=== PATIENT | female | born 1935 | race Caucasian/White ===

== ENCOUNTER 2022-12-04 14:59 | Outpatient (OUT) | payer MEDICARE, SELFPAY ==
[2022-12-04 15:45] LABS: Bilirubin Urine NEGATIVE (NEGATIVE); Blood Urine LARGE (NEGATIVE); Clarity Urine CLEAR (CLEAR); Color Urine LT. YELLOW (YELLOW); Glucose Urine UA NEGATIVE (NEGATIVE); Ketones Urine NEGATIVE (NEGATIVE); Leukocyte Esterase Urine TRACE (NEGATIVE); Nitrite Urine NEGATIVE (NEGATIVE); Protein Urine NEGATIVE (NEG/TRACE); Urobilinogen Urine 0.2 EU/dL (0.2-1.0)
[2022-12-04 15:53] LABS: RBC Urine 20-50 #/HPF (0-2)
[2022-12-04 15:54] LABS: Bacteria Urine TRACE #/HPF (NONE SEEN); Cast Seen? NONE SEEN #/LPF (NONE SEEN); Crystals Seen? None Seen #/HPF (None Seen); Mucus Urine NONE SEEN (NONE SEEN); Squamous Epithelial Cell Urine RARE #/LPF (NONE/RARE)
== END 2022-12-04 15:00 ==
LOC: LAB 15:04
PROVIDERS: PCP Family Medicine; Visit Provider Family Medicine
DX: R31.0 Gross hematuria (principal)
CPT/HCPCS: 81001; 87086

== ENCOUNTER 2022-12-29 10:38 | Emergency (ER) | payer MEDICARE, SELFPAY ==
[2022-12-29 10:41] VITALS: BP 159/95; PULSE 104; RESP 16; TEMP 36.8; O2SAT 96; BMI 31.0
--- NOTE | 2022-12-29 10:57 | XR_ITS ---
The [address] [address] Patient Name: NIGHAT NOGUEIRA MRN: [id number] date: 1935 Sex: F Assigned Patient Location: ED.MAIN Current Patient Location: ER Accession/Order Number: [id number] Exam Date: 12/29/2022 11:05 Report Date: 12/29/2022 11:35 At the request of: EPIFANIO RAGSDALE Procedure: XR foot LT min 3V EXAM: XR foot LT min 3V HISTORY: pain COMPARISON: None. TECHNIQUE: 3 views of the left foot FINDINGS: No acute fracture or dislocation. No aggressive bone lesion. There is a small heel spur. There is mild hallux valgus. There is soft tissue is unremarkable. IMPRESSION: No acute process. Electronically authenticated by: ERYN TIDWELL Date: 12/29/2022 11:35
--- NOTE | 2022-12-29 10:58 | ED_ITS ---
HPI - Extremity Problem General Chief complaint: Extremity Problem, Nontraumatic Stated complaint: LOWER EXTREMITY PAIN/LEFT FOOT Time Seen by Provider: 12/29/22 10:47 Source: patient Mode of arrival: walk-in History of Present Illness HPI Narrative: 87-year-old female presents for concern about a blood clot in her foot. she has difficulty explaining why she is here. She doesn't seem to be having pain but she had a blood clot once a long time ago. She thinks she needs new orthotics for her feet. She wanted to make sure she doesn't have a blood clot. There's been no injury. No swelling or pain in the calf. No ankle pain. Related Data Allergies Allergy/AdvReac Type Severity Reaction Status Date / Time cetirizine Allergy Unknown Verified 12/29/22 10:49 cyproheptadine Allergy Unknown Verified 12/29/22 10:49 levofloxacin Allergy Unknown Verified 12/29/22 10:49 Review of Systems ROS Narrative A ten point review of systems is negative except as noted above. Exam Narrative Exam Narrative: Nurses note and vital signs reviewed and patient is not hypoxic. General: The patient appears well and in no apparent distress. Patient is resting comfortably on cart. Skin: Warm, dry, no pallor noted. There is no rash noted. Head: Normocephalic, atraumatic Eye: Normal conjunctiva, no drainage Ears, Nose, Mouth, and Throat: oral mucosa is moist. Nares patent. Cardiovascular: Regular Rate and Rhythm Respiratory: Patient is in no distress, no accessory muscle use, lungs are clear to auscultation, no wheezing, rales or rhonchi Back: non-tender GI: nontender Musculoskeletal: the left foot is not swollen or erythematous. There is no bruise mass or swelling. No tenderness on palpation anywhere on the foot. Calf and ankle are nontender and nonswollen. Neurological: A&O, normal speech Psychiatric: Cooperative Constitutional Vital Signs, click to edit/add: Last Vital Signs Temp 98.3 F 12/29/22 10:41 Pulse 104 H 12/29/22 10:41 Resp 16 12/29/22 10:41 BP 159/95 H 12/29/22 10:41 Pulse Ox 96 12/29/22 10:41 Course Vital Signs Vital signs: Vital Signs Temperature 98.3 F 12/29/22 10:41 Pulse Rate 104 H 12/29/22 10:41 Respiratory Rate 16 12/29/22 10:41 Blood Pressure 159/95 H 12/29/22 10:41 Pulse Oximetry 96 12/29/22 10:41 Temperature 98.3 F 12/29/22 10:41 Pulse Rate 104 H 12/29/22 10:41 Respiratory Rate 16 12/29/22 10:41 Blood Pressure 159/95 H 12/29/22 10:41 Pulse Oximetry 96 12/29/22 10:41 MDM - Extremity (Nontraumatic) MDM Narrative Medical decision making narrative: foot x-ray is negative. We will bring her back tomorrow for ultrasound. I've low clinical suspicion of an deep vein thrombosis. She'll follow-up with her director education. Treatment diagnosis and follow-up were discussed with the patient. Differential Diagnosis Differential diagnosis: Likely other (foot sprain, foot strain, fracture, deep vein thrombosis) Discharge Plan Discharge Chief Complaint: Extremity Problem, Nontraumatic Clinical Impression: Foot pain Patient Disposition: Home, Self-Care Time of Disposition Decision: 12:00 Condition: Good Mode of Transportation: Private Vehicle Instructions: Foot Sprain (ED) Additional Instructions: Doppler ultrasound at 11:00 AM Follow-up with your director education Stand Alone Forms: Portal Instructions Referrals: Jamal Da Silva MD [Primary Care Provider] - 1 week
== END 2022-12-29 12:04 | disposition home or self-care (01) ==
PROVIDERS: Emergency Provider Emergency Medicine; PCP Family Medicine
DX: M79.672 Pain in left foot (principal)
CPT/HCPCS: 73630; 99283

== ENCOUNTER 2022-12-30 10:31 | Outpatient (OUT) | payer MEDICARE, SELFPAY ==
--- NOTE | 2022-12-30 10:40 | US_ITS ---
The [address] [address] Patient Name: NIGHAT NOGUEIRA MRN: [id number] date: 1935 Sex: F Assigned Patient Location: [facility] Current Patient Location: [facility] Accession/Order Number: [id number] Exam Date: 12/30/2022 10:41 Report Date: 12/30/2022 12:24 At the request of: EPIFANIO RAGSDALE Procedure: US venous doppler LE LT EXAMINATION: US venous doppler LE LT HISTORY: Pain , left foot swelling COMPARISON: No relevant comparison available. FINDINGS: REGION: Left lower extremity THROMBI: Nonocclusive short segment of thrombus within the peroneal vein which does not extend into the popliteal vein. COMPRESSIBILITY: Noncompressible segment of the peroneal vein. FLOW: Normal waveform and antegrade flow between 5 and 20 cm/s. OTHER: None. US/US venous doppler LE LT IMPRESSION: 1. Short segment of nonocclusive deep vein thrombus within the peroneal vein. Findings were called to the ordering provider by the cable maker at time of imaging. Electronically authenticated by: VALERIE REED Date: 12/30/2022 12:24
== END 2022-12-30 10:32 | disposition home or self-care (01) ==
PROVIDERS: PCP Family Medicine; Visit Provider Emergency Medicine
DX: M79.605 Pain in left leg (principal); I82.452 Acute embolism and thrombosis of left peroneal vein
CPT/HCPCS: 93971

== ENCOUNTER 2023-01-14 13:09 | Outpatient (OUT) | payer MEDICARE, SELFPAY ==
--- NOTE | 2023-01-14 | US_ITS ---
The [address] [address] Patient Name: NIGHAT NOGUEIRA MRN: [id number] date: 1935 Sex: F Assigned Patient Location: US Current Patient Location: US Accession/Order Number: [id number] Exam Date: 01/14/2023 14:00 Report Date: 01/14/2023 15:27 At the request of: ELIUD SHAHID Procedure: US venous doppler LE RT EXAMINATION: US venous doppler LE RT HISTORY: DVT (deep venous thrombosis) COMPARISON: No relevant comparison available. FINDINGS: REGION: Right lower extremity THROMBI: None. COMPRESSIBILITY: Normal compressibility. FLOW: Normal waveform and antegrade flow between 5 and 20 cm/s. OTHER: 3.9 x 3.4 x 1.1 cm fluid collection within the popliteal fossa, most consistent with a Sun's cyst. US/US venous doppler LE RT IMPRESSION: 1. No deep vein thrombus within the right lower extremity. 2. Sun's cyst. Electronically authenticated by: VALERIE REED Date: 01/14/2023 15:27
== END 2023-01-14 13:10 | disposition home or self-care (01) ==
LOC: US 13:10
PROVIDERS: PCP Family Medicine; Visit Provider Family Medicine
DX: R60.0 Localized edema (principal); M71.21 Synovial cyst of popliteal space [Baker], right knee
CPT/HCPCS: 93971

== ENCOUNTER 2023-01-18 14:15 | Emergency (ER) | payer MEDICARE, SELFPAY ==
[2023-01-18 14:26] VITALS: BP 150/83; PULSE 80; RESP 16; TEMP 36.8; O2SAT 97; BMI 23.9
--- NOTE | 2023-01-18 14:45 | ED.FALL1 ---
HPI - Fall General Chief Complaint: Fall Stated Complaint: FELL IN DRIVEWAY/ON A BLOOD THINNER Time Seen by Provider: 01/18/23 14:45 Source: patient Mode of arrival: Wheelchair History of Present Illness HPI Narrative: Patient presents to emergency department complaining of a fall. Patient states she was in the front porch and slipped and fell onto her right knee and also hurt her left elbow and shoulder. She did not hit her head as she had somebody in front of her and somebody behind her who were able to help her break the fall. She states the left elbow was bleeding a lot because she takes liquids so they came in to be evaluated. She also complains of pain to the right knee and bruising. The patient does have frequent falls and is not using a walker. She denies any headache. She denies any neck pain. She denies any paresthesias, weakness. She denies any chest pain, shortness of breath. She denies any abdominal pain, flank pain, hematuria, dysuria. Related Data Home Medications Medication Instructions Recorded Confirmed apixaban 2.5 mg tablet (Eliquis) 2.5 mg PO Q12H 01/18/23 01/18/23 Allergies Allergy/AdvReac Type Severity Reaction Status Date / Time cetirizine Allergy Unknown Verified 01/18/23 14:31 cyproheptadine Allergy Unknown Verified 01/18/23 14:31 levofloxacin Allergy Unknown Verified 01/18/23 14:31 Review of Systems ROS Status of ROS 10 or more systems reviewed and unremarkable except as noted in history and below Exam Narrative Exam Narrative: Nurses notes and vital signs reviewed and patient is not hypoxic. General: Nontoxic, Elderly, frail, chronically ill and in no apparent distress. Skin: Warm, dry, no pallor noted. No Rash Head: Normocephalic, atraumatic. Neck: Supple, non-tender.full Range of motion Eye: Pupils are equal, round and EOMI. No scleral icterus. Ears, Nose, Mouth, and Throat: TM clear, no hemotympanum,no posterior oropharynx erythema or nasal mucosal hypertrophy, uvula is mid-line Oral mucosa is moist Cardiovascular: Regular Rate and Rhythm without murmur, gallop or rub. Respiratory: No accessory muscle use or respiratory distress. Lungs are clear to auscultation, no wheezing, rales or rhonchi Chest Wall: no tenderness Back: No midline thoracic or lumbar vertebral tenderness. No CVA tenderness Musculoskeletal: Tenderness to palpation to the left lateral shoulder. There is no ecchymosis. There is an abrasion without any active bleeding to the left olecranon process. There is bony tenderness to palpation. Range of motion is full. Radial pulse +2, capillary refill is brisk. Right knee with small hematoma and ecchymosis noted. There is a small abrasion there is no active bleeding. Range of motion is limited by pain. no calf or popliteal tenderness, no lower extremity edema/swelling GI: Abdomen is soft, non-distended. Normal bowel sounds. No masses appreciated. No tenderness to palpation. No rebound, guarding, or rigidity noted. Psychiatric: Cooperative and interactive. Normal mood and affect. Constitutional Vital Signs, click to edit/add: Last Vital Signs Temp 98.3 F 01/18/23 14:26 Pulse 91 H 01/18/23 16:55 Resp 16 01/18/23 14:26 BP 164/89 H 01/18/23 16:55 Pulse Ox 96 01/18/23 16:55 O2 Del Method Room Air 01/18/23 14:26 Course Vital Signs Vital signs: Vital Signs Temperature 98.3 F 01/18/23 14:26 Pulse Rate 80 01/18/23 14:26 Respiratory Rate 16 01/18/23 14:26 Blood Pressure 150/83 H 01/18/23 14:26 Pulse Oximetry 97 01/18/23 14:26 Oxygen Delivery Method Room Air 01/18/23 14:26 Temperature 98.3 F 01/18/23 14:26 Pulse Rate 91 H 01/18/23 16:55 Respiratory Rate 16 01/18/23 14:26 Blood Pressure 164/89 H 01/18/23 16:55 Pulse Oximetry 96 01/18/23 16:55 Oxygen Delivery Method Room Air 01/18/23 14:26 MDM - Fall MDM Narrative Medical decision making narrative: X-rays of the left arm and elbow are unremarkable. Right knee does not show anything acute. All results were discussed with patient. Wound care instructions provided. She is advised to take Tylenol for pain. Patient has 2 caregivers with her. An Waylon wrap was applied to the right knee for compression. Advised to keep that on for 48 hours. At this time the patient is without objective evidence of an acute process requiring hospitalization or inpatient management. The patient has remained hemodynamically stable. No additional indication for emergent studies at this time. I answered all questions. Discussed discharge instructions including standard anticipatory guidance and what should prompt a return to the emergency department, including if they get worse are not getting better or develops any new or concerning symptoms. I've given them specific time frame in which to follow-up, and who to follow-up with. The patient demonstrates understanding. Patient is nontoxic and stable for discharge with outpatient follow-up. This note was created with the assistance of a speech recognition program. Although the intention is to generate documents that actually reflects the content of the visit, no guarantees can be provided that every mistake has been identified and corrected by editing. Discharge Plan Discharge Chief Complaint: Fall Clinical Impression: Contusion of left shoulder, Contusion of right knee, Abrasion of elbow Patient Disposition: Home, Self-Care Time of Disposition Decision: 16:38 Condition: Good Mode of Transportation: Private Vehicle Prescriptions / Home Meds: No Action Eliquis 2.5 mg tablet 2.5 mg PO Q12H Instructions: Contusion in Adults (ED) Stand Alone Forms: Portal Instructions Referrals: Jamal Da Silva MD [Primary Care Provider] - 1 week Discharge Date/Time: 01/18/23 17:25
--- NOTE | 2023-01-18 15:01 | XR_ITS ---
The [address] [address] Patient Name: NIGHAT NOGUEIRA MRN: [id number] date: 1935 Sex: F Assigned Patient Location: ER Current Patient Location: ER Accession/Order Number: [id number] Exam Date: 01/18/2023 15:35 Report Date: 01/18/2023 16:16 At the request of: NIMA MANDUJANO Procedure: XR knee RT 4V EXAM: XR knee RT 4V HISTORY: pain, fall COMPARISON: None. TECHNIQUE: 4 views FINDINGS: No fracture, dislocation, subluxation or osseous lesion. Osteophytes are present off all articular surfaces. Narrowing of the patellofemoral compartment with subchondral sclerosis of the patella and trochlea. The femorotibial compartments are maintained. No discrete joint effusion. XR/XR knee RT 4V IMPRESSION: No visualized discrete acute abnormality Electronically authenticated by: TRINI SOTO Date: 01/18/2023 16:16
--- NOTE | 2023-01-18 15:01 | XR_ITS ---
The [address] [address] Patient Name: NIGHAT NOGUEIRA MRN: [id number] date: 1935 Sex: F Assigned Patient Location: ER Current Patient Location: ER Accession/Order Number: [id number] Exam Date: 01/18/2023 15:35 Report Date: 01/18/2023 16:14 At the request of: NIMA MANDUJANO Procedure: XR elbow LT 2V EXAM: XR elbow LT 2V, XR humerus LT HISTORY: pain, fall COMPARISON: None. TECHNIQUE: 2 views of the elbow and 2 views of the humerus. FINDINGS: No gross visualized fracture, dislocation, subluxation or osseous lesion. A lateral elbow imaging is limited. No gross joint effusion or soft tissue edema. XR/XR elbow LT 2V IMPRESSION: No gross visualized acute abnormality Electronically authenticated by: TRINI SOTO Date: 01/18/2023 16:14
--- NOTE | 2023-01-18 15:01 | XR_ITS ---
The [address] [address] Patient Name: NIGHAT NOGUEIRA MRN: [id number] date: 1935 Sex: F Assigned Patient Location: ER Current Patient Location: ER Accession/Order Number: [id number] Exam Date: 01/18/2023 15:35 Report Date: 01/18/2023 16:14 At the request of: NIMA MANDUJANO Procedure: XR humerus LT EXAM: XR elbow LT 2V, XR humerus LT HISTORY: pain, fall COMPARISON: None. TECHNIQUE: 2 views of the elbow and 2 views of the humerus. FINDINGS: No gross visualized fracture, dislocation, subluxation or osseous lesion. A lateral elbow imaging is limited. No gross joint effusion or soft tissue edema. XR/XR humerus LT IMPRESSION: No gross visualized acute abnormality Electronically authenticated by: TRINI SOTO Date: 01/18/2023 16:14
--- NOTE | 2023-01-18 15:01 | XR_ITS ---
The [address] [address] Patient Name: NIGHAT NOGUEIRA MRN: [id number] date: 1935 Sex: F Assigned Patient Location: ER Current Patient Location: ER Accession/Order Number: [id number] Exam Date: 01/18/2023 15:35 Report Date: 01/18/2023 16:18 At the request of: NIMA MANDUJANO Procedure: XR ribs LT min 3V w CXR1V EXAMINATION: XR ribs LT min 3V w CXR1V HISTORY: Pain following fall COMPARISON: None. TECHNIQUE: 5 views of the ribs along with PA chest. New FINDINGS: Chronic changes of the lung parenchyma with no acute consolidation or infiltrate. No pneumothorax or pleural effusion. The cardiac, mediastinal and hilar contours are normal. The visualized osseous structures exhibit no gross abnormality. Nondilated changes of the spine most pronounced of the upper lumbar with a degenerative levocurvature. XR/XR ribs LT min 3V w CXR1V IMPRESSION: No visualized acute abnormality Electronically authenticated by: TRINI SOTO Date: 01/18/2023 16:18
[2023-01-18 16:55] VITALS: BP 164/89; PULSE 91; O2SAT 96
== END 2023-01-18 17:25 | disposition home or self-care (01) ==
PROVIDERS: Emergency Provider Emergency Medicine; PCP Family Medicine
DX: S80.01XA Contusion of right knee, initial encounter (principal); S40.012A Contusion of left shoulder, initial encounter; S50.312A Abrasion of left elbow, initial encounter; W01.10XA Fall on same level from slipping, tripping and stumbling with subsequent striking against unspecified object, initial encounter; Z79.01 Long term (current) use of anticoagulants
CPT/HCPCS: 71101; 73060; 73070; 73564; 99284

== ENCOUNTER 2023-02-10 12:39 | Outpatient (OUT) | payer MEDICARE, SELFPAY ==
[2023-02-10 12:53] VITALS: BP 128/69; PULSE 92; RESP 18; TEMP 36.7; O2SAT 94
--- NOTE | 2023-02-10 12:53 | PC.NURSE ---
1253: Pt. to [facility] amb. using walker to assist. Seated in recliner. VSS. Awaiting lab results before injection given. Pt. given warm blanket and water. Denies needs.
[2023-02-10 12:57] LABS: Calcium 9.6 mg/dL (8.5-10.1); Estimated GFR (African America >60 (>=60); Estimated GFR (Non-African Ame >60 (>=60)
[2023-02-10] MEDS: DENOSUMAB 60 MG/ML SYRINGE SUBQ (13:44)
== END 2023-02-10 12:40 | disposition home or self-care (01) ==
LOC: INF 12:39
PROVIDERS: PCP Family Medicine; Visit Provider Family Medicine
DX: M81.0 Age-related osteoporosis without current pathological fracture (principal)
CPT/HCPCS: 36415; 82310; 82565; 96372; J0897

== ENCOUNTER 2023-04-28 14:30 | Outpatient (RCR) | payer MEDICARE, SELFPAY | END 2023-06-06 16:07 | disposition home or self-care (01) | LOC: PT 14:30 | PROVIDERS: PCP Family Medicine; Visit Provider Family Medicine | DX: M79.671 Pain in right foot (principal) | CPT/HCPCS: 97110; 97112; 97163; 97530 ==

== ENCOUNTER 2023-07-24 13:46 | Outpatient (OUT) | payer MEDICARE, SELFPAY ==
--- NOTE | 2023-07-24 13:50 | US_ITS ---
The [address] [address] Patient Name: NIGHAT NOGUEIRA MRN: [id number] date: 1935 Sex: F Assigned Patient Location: US Current Patient Location: US Accession/Order Number: [id number] Exam Date: 07/24/2023 13:50 Report Date: 07/24/2023 15:41 At the request of: ELIUD SHAHID Procedure: US venous doppler LE BI EXAMINATION: US venous doppler LE BI HISTORY: bilateral leg edema R60.0 COMPARISON: No relevant comparison available. FINDINGS: REGION: Bilateral lower extremities. THROMBI: Short segment of nonocclusive chronic thrombus within proximal gastrocnemius vein. Small segment of superficial thrombus within the mid small saphenous vein. Sun cyst within right popliteal fossa, 4.4 x 2.5 x 1.3 cm, and within left popliteal fossa 4.2 x 1.7 x 1.3 cm. COMPRESSIBILITY: Noncompressible segments. FLOW: Normal waveform and antegrade flow between 5 and 20 cm/s. OTHER: None. US/US venous doppler LE BI IMPRESSION: 1. 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 No new findings. 2. Incidental small segment of superficial thrombus within right small saphenous vein. 3. No deep vein thrombus within left lower extremity. 4. Bilateral Sun cysts. Electronically authenticated by: VALERIE REED Date: 07/24/2023 15:41
== END 2023-07-24 13:47 | disposition home or self-care (01) ==
LOC: US 13:46
PROVIDERS: PCP Family Medicine; Visit Provider Family Medicine
DX: R60.0 Localized edema (principal); I82.561 Chronic embolism and thrombosis of right calf muscular vein; I82.811 Embolism and thrombosis of superficial veins of right lower extremity; M71.22 Synovial cyst of popliteal space [Baker], left knee; M71.21 Synovial cyst of popliteal space [Baker], right knee
CPT/HCPCS: 93970

== ENCOUNTER 2023-08-22 07:27 | Outpatient (RCR) | payer MEDICARE, SELFPAY ==
[2023-08-22 12:04] LABS: Calcium 9.1 mg/dL (8.5-10.1); Estimated GFR (African America >60 (>=60); Estimated GFR (Non-African Ame >60 (>=60)
--- NOTE | 2023-08-22 12:49 | MM_ITS ---
Patient Name: NIGHAT NOGUEIRA MR#: [id number] : 1935 Exam Date: 08/22/2023 Ordering Doctor: DR Jamal Da Silva . RADIOLOGY REPORT PROCEDURE: MM TOMOSYNTHESIS SCREENING BI COMPARISON: MG MAMM SCREEN 3D VERENICE CAD, 06/18/2021. MG MAMM SCREEN 3D VERENICE CAD, 07/01/2022. INDICATIONS: Screening Calculator Name NCI Breast Cancer Risk Assessment Tool 5 Year Breast Cancer Risk Not Applicable. Lifetime Breast Cancer Risk Not Applicable. Personal Breast Cancer No Personal Ovarian Cancer No Treatments None Family Cancers Aunt-paternal with breast cancer at age 60. LOCATION: [facility] BREAST COMPOSITION: Scattered areas fibroglandular density. FINDINGS: DIAGNOSTIC CATEGORY 2--BENIGN FINDING. NO CHANGE FROM COMPARISON. Scattered benign-appearing calcifications are present. Scattered benign-appearing lymph nodes are present. RIGHT BREAST: No significant suspicious finding. Asymmetrically small, stable. Unchanged micro clip marker upper outer quadrant, mid breast LEFT BREAST: No significant suspicious finding. RECOMMENDATIONS: ROUTINE MAMMOGRAM AND CLINICAL EVALUATION IN 12 MONTHS. PLEASE NOTE: A NORMAL MAMMOGRAM DOES NOT EXCLUDE THE POSSIBILITY OF BREAST CANCER. A CLINICALLY SUSPICIOUS PALPABLE LUMP SHOULD BE BIOPSIED. Dictated by: Chris Hauser MD on 08/22/2023 at 14:13 Approved by: Chris Hauser MD on 08/22/2023 at 14:16
[2023-08-22] MEDS: DENOSUMAB 60 MG/ML SYRINGE SQ (13:35)
[2023-08-22 14:12] VITALS: BP 133/70; PULSE 81; RESP 16; TEMP 36.6; O2SAT 96
--- NOTE | 2023-08-22 14:13 | PC.NURSE ---
1326: Pt. to [facility] amb. Seated in recliner. VSS. Denies c/o or needs. 1335: Medicated with Prolia as directed to right upper arm. Trace bleeding to site, bandaid applied. Pt. tolerated without c/o. 1355: Pt. d/c'd amb. to home.
== END 2023-09-21 08:47 | disposition home or self-care (01) ==
LOC: LAB 07:27
PROVIDERS: PCP Family Medicine; Visit Provider Family Medicine
DX: Z12.31 Encounter for screening mammogram for malignant neoplasm of breast (principal); Z80.3 Family history of malignant neoplasm of breast; M81.0 Age-related osteoporosis without current pathological fracture
CPT/HCPCS: 36415; 77063; 77067; 82310; 82565; 96372; J0897

== ENCOUNTER 2023-11-10 09:17 | Outpatient (OUT) | payer MEDICARE, SELFPAY ==
[2023-11-10 09:53] LABS: Basophils Percent Auto 0.5 % (0.2-2.0); Eosinophils Absolute Auto 0.1 10^3/uL (0.0-0.7); Eosinophils Percent Auto 0.7 % (0.9-7.0); Hematocrit 37.8 % (36.0-48.0); Hemoglobin 12.5 g/dL (12.0-16.0); Immature Granulocytes Abs Auto 0.02 10^3/uL (0.00-0.03); Immature Granulocytes Pct Auto 0.3 % (0.0-0.5); Lymphocytes Absolute Auto 1.1 10^3/uL (1.2-3.8); Lymphocytes Percent Auto 15.4 % (20.5-60.0); Mean Corpuscular HGB Conc 33.1 g/dL (29.9-35.2); Mean Corpuscular Hemoglobin 32.7 pg (26.7-34.0); Mean Platelet Volume 10.8 fL (9.5-13.5); Monocytes Absolute Auto 0.7 10^3/uL (0.3-0.8); Monocytes Percent Auto 9.8 % (1.7-12.0); Neutrophils Absolute Auto 5.4 10^3/uL (1.4-6.5); Neutrophils Percent Auto 73.3 % (43.0-75.0); Platelet Count 166 10^3/uL (150-450); Red Blood Count 3.82 10^6/uL (4.20-5.40); Red Cell Distribution Width 13.3 % (11.0-15.0); White Blood Count 7.4 10^3/uL (4.0-11.0)
[2023-11-10 11:27] LABS: Alanine Aminotransferase 33 U/L (14-59); Albumin Level 3.4 g/dL (3.4-5.0); Alkaline Phosphatase 45 U/L (46-116); Anion Gap 10.2; Aspartate Amino Transferase 27 U/L (15-37); BUN Creatinine Ratio 33.9; Bilirubin Total 0.5 mg/dL (0.2-1.0); Calcium 9.3 mg/dL (8.5-10.1); Carbon Dioxide 28.9 mmol/L (21.0-32.0); Chloride 104 mmol/L (98-107); Chol HDL Ratio 1.9; Cholesterol 204 mg/dL (<=200); Estimated GFR (African America >60 (>=60); Estimated GFR (Non-African Ame >60 (>=60); Free T3 2.67 pg/mL (2.18-3.98); Globulin 3.5 g/dL; Glucose 88 mg/dL (74-106); HDL Cholesterol 110 mg/dL (40-60); Potassium 3.1 mmol/L (3.5-5.1); Sodium 140 mmol/L (136-145); Thyroid Stimulating Hormone 3.585 uIU/mL (0.358-3.740); Total Protein 6.9 g/dL (6.4-8.2); Triglycerides 39 mg/dL (<=150); VLDL CHOLESTEROL 7.8 mg/dL
[2023-11-10 11:56] LABS: Estimated Average Glucose 111 mg/dL; Glycohemoglobin A1C 5.5 % (4.5-6.2)
== END 2023-11-10 09:18 | disposition home or self-care (01) ==
LOC: LAB 09:20
PROVIDERS: PCP Family Medicine; Visit Provider Family Medicine
DX: E78.5 Hyperlipidemia, unspecified (principal); R60.0 Localized edema; F41.9 Anxiety disorder, unspecified; R42 Dizziness and giddiness
CPT/HCPCS: 36415; 80053; 80061; 82306; 83036; 84436; 84443; 84481; 85025

== ENCOUNTER 2023-11-21 08:19 | Outpatient (OUT) | payer MEDICARE, SELFPAY ==
--- OUTSIDE RECORDS SUMMARY | 2023-11-21 08:22 | XMS_ITS | CCD ---
Author Organization [facility] CliniSyar Care Team Providers Care Cabin Service Agent Name Role Phone ZEHRA, DR KLINE Consulting Unavailable HOY, DR KLINE Primary Care Unavailable ZEHRA, DR KLINE Attending Unavailable HOY, DR KLINE Admitting Unavailable HOY, DR KLINE Consulting Unavailable HOY, DR KLINE Primary Care Unavailable HOY, DR KLINE Attending Unavailable HOY, DR KLINE Admitting Unavailable Zieber, DR Bautista Consulting Unavailable ZEHRA, DR KLINE Primary Care Unavailable HOY, DR KLINE Attending Unavailable HOY, DR KLINE Admitting Unavailable PRIYANKA, SCOUT BRUNO Consulting Unavailable MICHAEL, DR KAREEM Whitt Attending Unavailabl e REINECK, DR KAREEM Whitt Admitting Unavailabl e HOJacki, DR KLINE Primary Care Unavailable HAY, DR RASMUSSEN Consulting Unavailable HAY, DR RASMUSSEN Attending Unavailable HAY, DR RASMUSSEN Admitting Unavailable BRUCEY, DR KLINE Primary Care Unavailable MARTÍNEZ BALTAZAR Consulting Unavailable HAY, DR RASMUSSEN Consulting Unavailable HAY, DR RASMUSSEN Attending Unavailable HAY, DR RASMUSSEN Admitting Unavailable ZEHRA, DR KLINE Primary Care Unavailable HOY, DR KLINE Consulting Unavailable ZEHRA, DR KLINE Primary Care Unavailable HOJacki, DR KLINE Attending Unavailable HOY, DR KLINE Admitting Unavailable WEST, DR FELIZ Consulting Unavailable WEST, DR FELIZ Consulting Unavailable HOY, DR KLINE Primary Care Unavailable WEST, DR FELIZ Attending Unavailable WEST, DR FELIZ Admitting Unavailable Zieber, DR Bautista Consulting Unavailable NISA, DR FELIZ Consulting Unavailable ZEHRA, DR KLINE Attending Unavailable HOY, DR KLINE Admitting Unavailable HOY, DR KLINE Primary Care Unavailable HOY, DR KLINE Consulting Unavailable BRUCEY, DR KLINE Primary Care Unavailable ZEHRA, DR KLINE Attending Unavailable ZEHRA, DR KLINE Admitting Unavailable ZEHRA, DR KLINE Consulting Unavailable ZEHRA, DR KLINE Primary Care Unavailable HOY, DR KLINE Attending Unavailable HOY, DR KLINE Admitting Unavailable HOY, DR KLINE Consulting Unavailable DR ELIUD DA SILVA Primary Care Unavailable JANNETTE BREWER Attending Unavailable JANNETTE BREWER Admitting Unavailable DR Michele Aguayo Consulting Unavailable Allergies Allergy Classification Reported Allergen(s) Allergy Type Date of Onset Reaction(s) Facility (1 source) Cetirizine Drug Allergy [facility] Repository (1 source) diphenhydrAMINE Drug Allergy 6 [facility] Repository (1 source) gamma-Aminobutyrate Drug Allergy [facility] Repository (1 source) Ketanserin Drug Allergy [facility] Repository (2 sources) levoFLOXacin; Translations: [LEVOFLOXACIN] Drug Allergy 3 [facility] Repository (1 source) Cyproheptadine; Translations: [CYPROHEPTADINE HCL] Drug Allergy 3 [facility] Repository Problems Active Problems Problem Classification Problem Date Documented Da te Episodic/Chronic Anxiety disorders (1 source) Anxiety disorder, unspecified; Translations: [ANXIETY DISORDER UNSPECIFIED] Onset: 12-01-2021 Chronic Congestive heart failure; nonhypertensive (1 source) Unspecified diastolic (congestive) heart failure; Translations: [UNSPECIFIED DIASTOLIC HEART FAILURE] Onset: 12-01-2021 Chronic Disorders of lipid metabolism (2 sources) Pure hypercholesterolemi a, unspecified; Translations: [Hyperlipidemia, unspecified] Onset: 12-01-2021 Chronic Hypertension with complications and secondary hypertension (1 source) Hypertensive heart disease with heart failure; Translations: [HTN HEART DISEASE W/HEART FAIL] Onset: 12-01-2021 Chronic Nutritional deficiencies (1 source) Vitamin D deficiency, unspecified; Translations: [VITAMIN D DEFICIENCY UNSPECIFIED] Onset: 12-01-2021 Chronic Osteoporosis (4 sources) Age-related osteoporosis without current pathological fracture; Translations: [AGE-REL OSTEOPOR W/O CURR PATH FX] Onset: 07-01-2022 Chronic Other connective tissue disease (4 sources) Pain in left leg; Translations: [PAIN IN LEFT LEG] Onset: 05-21-2022 Episodic Other injuries and conditions due to external causes (1 source) History of falling; Translations: [HISTORY OF FALLING] Onset: 05-25-2022 Episodic Other screening for suspected conditions (not mental disorders or infectious disease) (1 source) Encounter for screening mammogram for malignant neoplasm of breast; Translations: [ENC SCR MAMMO MALIG NEOPLASM BREAST] Onset: 07-02-2022 Episodic Residual codes; unclassified (1 source) Obstructive sleep apnea (adult) (pediatric); Translations: [OBSTRUCTIVE SLEEP APNEA] Onset: 12-01-2021 Chronic Residual codes; unclassified (1 source) Family history of malignant neoplasm of breast; Translations: [FAMILY HX MALIG NEOPLASM OF BREAST] Onset: 07-02-2022 Episodic Unclassified (3 sources) COUGH, UNSPECIFIED; Translations: [COUGH, UNSPECIFIED] Onset: 06-12-2022 Unclassified (1 source) CONTACT W/AND (SUSP) EXPOS COVID-19; Translations: [CONTACT W/AND (SUSP) EXPOS COVID-19] Onset: 06-12-2022 Unclassified (1 source) Annual Exam Onset: 06-09-2023 Past or Other Problems Problem Classification Problem Date Documented Da te Episodic/Chronic Deficiency and other anemia (1 source) Anemia, unspecified; Translations: [ANEMIA UNSPECIFIED] Onset: 2 Episodic Diabetes mellitus without complication (1 source) Other abnormal glucose; Translations: [OTHER ABNORMAL GLUCOSE] Onset: 2 Episodic E Codes: Fall (1 source) Unspecified fall, initial encounter; Translations: [UNSPECIFIED FALL INITIAL ENCOUNTER] Onset: 2 Episodic Genitourinary symptoms and ill-defined conditions (7 sources) Hematuria, unspecified; Translations: [Frequency of micturition] Onset: 2 Episodic Other aftercare (1 source) care manager (current) use of aspirin; Translations: [HALF-WAY CURRENT USE OF ASPIRIN] Onset: 2 Episodic Other aftercare (1 source) Other artificial breeding technician (current) drug therapy; Translations: [OTH ART CLASS MODEL CURRENT DRUG THERAPY] Onset: 2 Episodic Other fractures (1 source) Fracture of one rib, right side, initial encounter for closed fracture; Translations: [FX 1 RIB RT SIDE INITIAL CLOS FX] Onset: 2 Episodic Phlebitis; thrombophlebitis and thromboembolism (4 sources) Phlebitis and thrombophlebitis of superficial vessels of lower extremities, bilateral; Translations: [PHLEBITIS AND TP SUP VES LOW EXT VERENICE] Onset: 2 Episodic Residual codes; unclassified (4 sources) Localized edema; Translations: [LOCALIZED EDEMA] Onset: 2 Episodic Spondylosis; intervertebral disc disorders; other back problems (3 sources) Dorsalgia, unspecified; Translations: [DORSALGIA UNSPECIFIED] Onset: 2 Episodic Syncope (1 source) Syncope and collapse; Translations: [SYNCOPE AND COLLAPSE] Onset: 2 Episodic Unclassified (1 source) COUGH, UNSPECIFIED; Translations: [COUGH, UNSPECIFIED] Onset: 2 Urinary tract infections (2 sources) Urinary tract infection, site not specified; Translations: [UTI SITE NOT SPECIFIED] Onset: 2 Episodic Varicose veins of lower extremity (4 sources) Varicose veins of bilateral lower extremities with pain; Translations: [VARICOSE VNS VERENICE LOW EXTREM W/PAIN] Onset: 2 Episodic Results Test Name Value Interpretation Reference Range Facility CALCIUMon 07-01-2022 Calcium [Mass/Vol] 8.9 mg/dL Normal 8.5-10.1 [facility] Comment on above: Performed By: #### E RUR #### [facility] [address] [address] [address] Augusto Dukes CREATININEon 07-01-2022 Creatinine [Mass/Vol] 0.99 mg/dL Normal 0.55-1.02 [facility] Comment on above: Performed By: #### E RUR #### [facility] [address] [address] [address] Augusto Dukes EGFR-AF KAZAKH >60 Normal >=60 [facility] Comment on above: Performed By: #### E RUR #### [facility] [address] [address] [address] Augusto Dukes EGFR-NON AF KAZAKH 53 mL/min/1.73m2 Critically low >=60 [facility] Comment on above: Performed By: #### E RUR #### [facility] [address] [place] [address] Dr. Augusto Dukes MG MAMM SCREEN 3D VERENICE CADon 07-01-2022 MG MAMM SCREEN 3D VERENICE CAD Patient: NIGHAT NOGUEIRAMalissa Exam Date: 07/01/2022 : 1935 Gender:F Ordering : DR ELIUD DA SILVA . Admission #: [id number] Family : Order #: [id number] CLICK HERE TO VIEW EXAM RADIOLOGY REPORT PROCEDURE: MAMMOGRAM SCREENING 3D BILATERAL CAD COMPARISON: MG MAMM SCREEN VERENICE W CAD, 05/30/2020. MG MAMM SCREEN VERENICE W CAD, 05/18/2019. DIGITIZED_MAMMO, 12/28/2008. MG MAMM SCREEN 3D VERENICE CAD, 06/18/2021. INDICATIONS: Screening mammography Calculator Name NCI Breast Cancer Risk Assessment Tool 5 Year Breast Cancer Risk 1.70% Lifetime Breast Cancer Risk 1.70% Personal Breast Cancer No Personal Ovarian Cancer No Treatments None Family Cancers Aunt-paternal with breast cancer at age 60. LOCATION: [facility] BREAST COMPOSITION: Scattered areas fibroglandular density. FINDINGS: DIAGNOSTIC CATEGORY 2--BENIGN FINDING: RIGHT BREAST: Stable biopsy marker clip within the upper-outer quadrant. No significant suspicious finding. Scattered benign-appearing calcifications are present. No significant change has occurred. LEFT BREAST: No significant suspicious finding. Scattered benign-appearing calcifications are present. No significant change has occurred. RECOMMENDATIONS: ROUTINE MAMMOGRAM AND CLINICAL EVALUATION IN 12 MONTHS. PLEASE NOTE: A NORMAL MAMMOGRAM DOES NOT EXCLUDE THE POSSIBILITY OF BREAST CANCER. A CLINICALLY SUSPICIOUS PALPABLE LUMP SHOULD BE BIOPSIED. Dictated by: Michele Aguayo M.D. on 07/01/2022 at 15:55 Approved by: Michele Aguayo M.D. on 07/01/2022 at 15:58 Normal [facility] Covid-19 PCR (CVDTB)on 05-23 SARS-CoV-2 (COVID-19) RNA ADWOA+probe Ql (Unsp spec) Not detected Normal NOT DETECTED [facility] Comment on above: Result Comment: This test is not yet approved or cleared by the [place] FDA. When there are no FDA-approved or cleared tests available, and other criteria are met, FDA can make tests available under an emergency access mechanism called an Emergency Use Authorization (EUA). The EUA for this test is supported by the [place] of Health and Human Service's (HHS's) declaration that circumstances exist to justify the emergency use of in vitro diagnostics for the detection and/or diagnosis of the virus that causes COVID-19. This EUA will remain in effect (meaning this test can be used) for the duration of the COVID-19 declaration justifying emergency of IVDs, unless it is terminated or revoked by FDA (after which the test may no longer be used). When diagnostic testing is negative, the possibility of a false negative should be considered in the context of a patient's recent exposures and the presence of clinical signs and symptoms consistent with SARS-CoV-2. Performed By: #### I NFLUAB #### [facility] [address] [place] [address] Dr. Augusto Dukes INFLUENZA A AND B [facility] BELOW Normal [facility] Comment on above: Result Comment: Nega tive for Flu A protein angiten. Infection due to Flu A cannot be ruled out. Flu A angiten in the sample may be below the detection limit of the test. Performed By: #### I NFLUAB #### [facility] [address] [place] [address] Dr. Augusto Dukes INFLUBNEG SEE BELOW Normal [facility] Comment on above: Result Comment: Nega tive for Flu B protein antigen. Infection due to Flu B cannot be ruled out. Flu B antigen in the sample may be below the detection limit of the test. Performed By: #### I NFLUAB #### [facility] [address] [place] [address] Dr. Augusto Dkues INFLUENZA A AG Negative Normal NEGATIVE SEE COMMENT [facility] Comment on above: Performed By: #### I NFLUAB #### [facility] [address] [place] [address] Dr. Augusto Dukes INFLUENZA B AG Negative Normal NEGATIVE SEE COMMENT [facility] Comment on above: Performed By: #### I NFLUAB #### [facility] [address] [place] [address] Dr. Augusto Dukes INTERNAL CONTROLS Within Normal Limits Normal Wi thin Normal Limits [facility] Comment on above: Performed By: #### I NFLUAB #### [facility] [address] [place] [address] Dr. Augusto Dukes CULTURE URINEon 03-06-2022 CULTURE URINE Culture Observations : LIGHT GROWTH OF MIXED GENITAL BRANDON. NO POTENTIAL PATHOGENS SEEN. Normal [facility] Comment on above: Performed By: #### I NFLUAB #### [facility] [address] [address] [address] Augusto Dukes ER URINE PROFILEon 2 Bilirubin Ql (U) Negative Normal NEGATIVE [facility] Comment on above: Performed By: #### U MICRO, ERUR #### [facility] [address] [address] [address] Augusto Dukes Clarity (U) CLEAR Normal CLEAR [facility] Comment on above: Performed By: #### U MICRO, ERUR #### [facility] [address] [place] [address] Dr. Augusto Dukes Color (U) YELLOW Normal YELLOW [facility] Comment on above: Performed By: #### U MICRO, ERUR #### [facility] [address] [place] [address] Dr. Augusto Dukes ERUAHD A micrscopic examination will be performed if indicated. Normal [facility] Comment on above: Performed By: #### U MICRO, ERUR #### [facility] [address] [place] [address] Dr. Augusto Dukes Glucose Ql (U) Negative Normal NEGATIVE [facility] Comment on above: Performed By: #### U MICRO, ERUR #### [facility] [address] [address] [address] Augusto Dukes Hemoglobin Ql (U) LARGE Abnormal NEGATIVE [facility] Comment on above: Performed By: #### U MICRO, ERUR #### [facility] [address] [address] [address] Augusto Dukes Ketones Ql (U) Negative Normal NEGATIVE [facility] Comment on above: Performed By: #### U MICRO, ERUR #### [facility] [address] [place] [address] Dr. Augusto Dukes LEUKOCYTES SMALL Abnormal NEGATIVE [facility] Comment on above: Performed By: #### U MICRO, ERUR #### [facility] [address] [place] [address] Dr. Augusto Dukes Nitrite Ql (U) Negative Normal NEGATIVE [facility] Comment on above: Performed By: #### U MICRO, ERUR #### [facility] [address] [place] [address] Dr. Augusto Dukes pH (U) 8.0 [pH] Normal 5-9 [facility] Comment on above: Performed By: #### U MICRO, ERUR #### [facility] [address] [place] [address] Dr. Augusto Dukes SPEC GRAVITY 1.015 Normal 1.005-<=1.025 [facility] Comment on above: Performed By: #### U MICRO, ERUR #### [facility] [address] [place] [address] Dr. Augusto Dukes UA PROTEIN TRACE Normal NEGATIVE/ TRACE [facility] Comment on above: Performed By: #### U MICRO, ERUR #### [facility] [address] [place] [address] Dr. Augusto Dukes UR MICRO IND INDICATED Normal [facility] Comment on above: Performed By: #### U MICRO, ERUR #### [facility] [address] [place] [address] Dr. Augusto Dukes Urobilinogen Qn (U) 0.2 {Lamont'U}/dL Normal 0.2 - 1. 0 [facility] Comment on above: Performed By: #### U MICRO, ERUR #### [facility] [address] [place] [address] Dr. Augusto Dukes URINE MICROSCOPIC ONLYon AMORPHOUS CRYSTALS FEW Normal [facility] Comment on above: Performed By: #### U MICRO, ERUR #### [facility] [address] [place] [address] Dr. Augusto Dukes BACTERIA SMALL Abnormal NONE SEEN [facility] Comment on above: Performed By: #### U MICRO, ERUR #### [facility] [address] [place] [address] Dr. Augusto Dukes Bacteria identified Cx Nom (U) INDICATED Normal [facility] Comment on above: Performed By: #### U MICRO, ERUR #### [facility] [address] [place] [address] Dr. Augusto Dukes CAST NONE SEEN Normal NONE SEEN [facility] Comment on above: Performed By: #### U MICRO, ERUR #### [facility] [address] [place] [address] Dr. Augusto Dukes Crystals LM Nom (Urine sed) SEEN Abnormal NONE SEEN [facility] Comment on above: Performed By: #### U MICRO, ERUR #### [facility] [address] [place] [address] Dr. Augusto Dukes Epithelial cells LM Ql (Urine sed) RARE Normal NONE SEEN /RARE [facility] Comment on above: Performed By: #### U MICRO, ERUR #### [facility] [address] [place] [address] Dr. Augusto Dukes MUCOUS NONE SEEN Normal NONE SEEN [facility] Comment on above: Performed By: #### U MICRO, ERUR #### [facility] [address] [place] [address] Dr. Augusto Dukes RBC 20-50 Abnormal 0-2 [facility] Comment on above: Performed By: #### U MICRO, ERUR #### [facility] [address] [place] [address] Dr. Augusto Dukes WBC 10-20 Abnormal NONE SEEN [facility] Comment on above: Performed By: #### U MICRO, ERUR #### [facility] [address] [place] [address] Dr. Augusto Dukes VC CONSULT FOLLOWUPon 2021 VC CONSULT FOLLOWUP Patient: NIGHAT NOGUEIRA Exam Date: 02/07/2022 : 1935 Gender:F Ordering : DR TRINI PAULA M.D. Admission #: [id number] Family : Order #: [id number] CLICK HERE TO VIEW EXAM RADIOLOGY REPORT PROCEDURE: VEIN CENTER CONSULTATION FOLLOWUP VEIN CENTER - OFFICE VISIT FOLLOW UP COMPARISON: None. PROGRESS NOTES: Patient is here today for follow-up of previously seen deep vein thrombus within the right and left calf. The patient reports recent fall and fracture of right rib. Physical exam demonstrates persistent superficial varicosities of legs bilaterally. Review of the ultrasound performed the same day demonstrates complete resolution of previously seen deep vein thrombus within the right and left calf. Incidentally noted is a prominent Sun's cyst within the popliteal fossa bilaterally. The patient expressed a desire to try wearing knee high compression stockings instead of thigh-high compression stockings, in hopes that this will alleviate her symptoms and prevent need of further treatment. This is discussed with the patient and her questions were addressed. The patient is being fitted with knee high compression stockings and will follow-up with us as needed. The patient will also finish out her course of Eliquis prescribed by Dr. Da Silva and follow-up with him. IMPRESSION: 1. Complete clearing of previously seen deep vein thrombus within the right and left calf. PLAN: 1. Finish out course of Eliquis prescribed by Dr. Da Silva and follow-up with Dr. Da Silva. 2. Wear knee high compression stockings to aid with symptoms. Patient will follow-up with vein and body center in future if needed. Nurse notes, history and physical were reviewed and confirmed, see attached forms. The nurse was present throughout the physical exam and consultation Dictated by: Michele Aguayo M.D. on 02/07/2022 at 13:52 Approved by: Michele Aguayo M.D. on 02/07/2022 at 13:59 Normal [facility] VC EXT VENOUS VERENICE LIMITEDon 02-07-2022 VC EXT VENOUS VERENICE LIMITED Patient: NIGHAT NOGUEIRA Exam Date: 02/07/2022 : 1935 Gender:F Ordering : DR TRINI PAULA M.D. Admission #: [id number] Family : Order #: [id number] CLICK HERE TO VIEW EXAM RADIOLOGY REPORT PROCEDURE: VEIN CENTER EXTREMITY VENOUS BILATERAL LIMITED COMPARISON: VC VENOUS REFLUX VERENICE LMT, 12/31/2021. INDICATIONS: Phlebitis of superficial veins of lower extremity i80.03 TECHNIQUE: Lower extremity henson scale and Duplex Doppler evaluation of the deep venous system from the inguinal ligament through the calf veins. FINDINGS: REGION: Right lower extremity. THROMBI: None. No acute or chronic thrombus visualized. COMPRESSIBILITY: Normal compressibility. FLOW: Normal waveform and antegrade flow between 5 and 20 cm/s. OTHER: Sun's cyst in pop fossa that measures 3.6 x 1.0 x 2.2 cm REGION: Left lower extremity. THROMBI: None. COMPRESSIBILITY: Normal compressibility. FLOW: Normal waveform and antegrade flow between 5 and 20 cm/s. OTHER: Sun's cyst in pop fossa that measures 3.7 x 1.2 x 2.7 cm. CONCLUSION: 1. Clearing of previously seen deep vein thrombi within the right and left calf. Dictated by: Michele Aguayo M.D. on 02/07/2022 at 13:30 Approved by: Michele Aguayo M.D. on 02/07/2022 at 13:51 Normal [facility] XR RIBS RT PA Dangelo 2 XR RIBS RT PA CH EXAMINATION: XR RIBS RT PA CH HISTORY: Injury of ribs ; acute lower right rib pain after falling COMPARISON: XR chest 10/31/2018 FINDINGS: LUNGS: Hyperexpanded lungs without acute infiltrates or mass. PLEURA: No pneumothorax, effusion, or pleural thickening. MEDIASTINUM: Large hiatal hernia. No abnormal widening of the upper mediastinum. CARDIAC: No cardiomegaly or cardiac silhouette abnormality. RIBS: Minimally displaced fracture of the posterior lateral right ninth rib. OTHER: Negative. IMPRESSION: 1. Acute, slightly displaced fracture of the posterior lateral right ninth rib. 2. No acute cardiopulmonary process. 3. Hyperexpanded lungs compatible with COPD. 4. Large hiatal hernia, grossly stable. Electronically authenticated by: MICHELE AGUAYO Date: 2022-02-05 11:00 Normal [facility] VC COMP CONSULTATIONon 01-03 VC COMP CONSULTATION Patient: NIGHAT NOGUEIRA Exam Date: 01/03/2022 : 1935 Gender:F Ordering : DR ELIUD DA SILVA . Admission #: [id number] Family : Order #: [id number] CLICK HERE TO VIEW EXAM RADIOLOGY REPORT PROCEDURE: VC VEIN CENTER CONSULTATION VEIN CENTER - OFFICE VISIT INITIAL COMPARISON: None. PROGRESS NOTES: [age] year old female who presents with a 3 month history of lower extremity pain and discomfort primarily within her calves. The patient pain started as an 8 and is now a 5 on a scale of 1-10. The patient complains of leg swelling and muscle cramps. The patient's symptoms are worse after prolonged sitting or standing and are partially relieved by rest, leg elevation, knee high compression stockings. The patient presented on December 31, 2021 for a reflux study which demonstrated bilateral deep vein thrombus. The patient was prescribed Eliquis but was nervous about taking the medication and has not started. The patient was counseled at length about the importance of starting her anticoagulation, but remained ambivalent and did not commit to starting the medicine. The patient denies any signs and symptoms to suggest arterial ischemia. The patient has been primarily indoors for the past 2 years secondary to covid but does exercise using a stationary bicycle. The patient declined to be outdoors and to walk due to her allergies. The patient describes a family history significant for muscular dystrophy in her mother. Cancer in her father. . The patient has never smoked. No alcohol use. No illicit drug use. Patient has a past medical history significant for arthritis, hyperlipidemia, varicose veins. Bilateral cataracts. History of pulmonary embolus. See separate history and physical for medication list. Prior treatment for varicose or spider veins. Nursing notes were reviewed. After history and physical exam I discussed at length the pathophysiology of venous hypertension and possible treatments, therapies and strategies available. We discussed at length the importance of elevating the lower extremities above the level of the heart, increased physical activity and compression stocking use. We discussed conservative therapy with bilateral thigh-high 20-30 mm compression stockings. We discussed surgical interventions including ligation and stripping and phlebectomy. We discussed intravenous laser ablation, micro foam chemical ablation and injection sclerotherapy at length. The patient's questions were answered. Ultrasound venous reflux study performed December 31, 2021 was discussed at length with the patient. The report demonstrates mild bilateral deep vein thrombus right gastrocnemius and director athletic veins and left peroneal vein. Moderate bilateral great saphenous vein anterior accessory saphenous vein and small saphenous vein venous insufficiency. Bilateral incompetent branch saphenous tributary/varicose veins PHYSICAL EXAM: The right leg demonstrates mild scattered varicose veins. Moderate diffuse reticular and spider veins throughout the thigh knee lower leg ankle and feet. Scattered areas of hemosiderin staining. No active ulceration. Minimal subcutaneous edema of the ankle The left leg demonstrates mild scattered varicose veins. Moderate diffuse reticular and spider veins throughout the thigh knee lower leg ankle and feet. Scattered areas of hemosiderin staining. No active ulceration. Minimal subcutaneous edema of the ankle Both thighs, legs and feet were symmetrically warm to the touch. Good posterior tibial and dorsalis pedis pulses were present bilaterally. IMPRESSION: 1. Bilateral deep vein thrombus, the patient has declined to take blood thinners at this time 2. Moderate bilateral great saphenous, anterior accessory saphenous and small saphenous vein venous insufficiency with associated dilatation 3. Minimal bilateral lower extremity subcutaneous edema 4. No definite flow significant arterial disease 5. CEAP: C4a, Ep, Asp, Pr PLAN: 1. Begin Eliquis prescribed by Dr. Da Silva 2. Follow-up ultrasound in 4-6 weeks to evaluate deep vein thrombus 3. Bilateral thigh-high 20-30 mm compression stockings Nurse notes, history and physical were reviewed and confirmed, see attached forms. The nurse was present throughout the physical exam and consultation Dictated by: Trini Paula MD on 01/03/2022 at 11:30 Approved by: Trini Paula MD on 01/03/2022 at 11:54 Normal [facility] VC VENOUS REFLUX VERENICE LMTon 0 12-31-2021 VC VENOUS REFLUX VERENICE LMT Patient: NIGHAT NOGUEIRA Exam Date: 12/31/2021 : 1935 Gender:F Ordering : DR ELIUD DA SILVA . Admission #: [id number] Family : Order #: [id number] CLICK HERE TO VIEW EXAM RADIOLOGY REPORT PROCEDURE: VEIN CENTER ULTRASOUND VENOUS REFLUX BILATERAL LIMTED COMPARISON: None. INDICATIONS: Dependent edema R60.0 TECHNIQUE: Duplex imaging of the lower extremity to assess the deep and superficial venous system for the presence of deep or superficial venous incompetence and to document the location and severity of disease. The study includes evaluation of the great saphenous vein (GSV), anterior accessory saphenous vein (AASV) and small saphenous vein (SSV). Patient scanned in reverse Trendelenburg and standing. FINDINGS: RIGHT LOWER EXTREMITY: Saphenofemoral Junction Reflux: Yes 8.3mm 1.5 sec GSV: Diam (mm) Reflux/ Time (sec) Proximal Thigh 8.2 Yes 1.4 Mid Thigh 5.7 Yes 0.3 Distal Thigh 6.1 Yes 1.3 Prox Calf 3.5 Yes 2.9 Mid Calf 2.8 Yes 2.2 Saphenopopliteal Junction Reflux: 3.7mm No SSV: Proximal Calf 4.9 Yes 0.9 Mid Calf 4.8 Yes 0.7 AASV: Proximal Thigh 6.0 Yes 4.5 Mid Thigh 6.5 Yes 0.2 Distal Thigh Thrombi: Thrombus visualized in the gastroc veins and two perforators in the mid calf. Compressibility: Non-compressible segments in the areas of thrombus. Flow: Deep venous reflux visualized. Preforator: Mid thigh 3.2mm, 0.8s reflux. Mid calf 2.5mm, 1.1s reflux. Tech Note: Anechoic area in medial popliteal fossa measures 3.8 x 3.3 x 1.3 cm. Mid/medial calf varicosity off of director athletic measures 4.6 mm with 0.5s reflux. Mid/medial calf varicose vein measures 5.4 mm with 0.3s reflux. Distal/anterior thigh varicosity measures 4.5mm with 0.4s reflux. LEFT LOWER EXTREMITY: Saphenofemoral Junction Reflux: Yes 9.0 mm 2.1 sec GSV: Diam (mm) Reflux/Time (sec) Proximal Thigh 7.1 Yes 0.6 Mid Thigh 6.5 Yes 0.8 Distal Thigh 5.2 Yes 0.2 Prox Calf 5.2 Yes 3.6 Mid Calf 3.1 Yes 0.3 Saphenopopliteal Junction Relux: 4.5 mm Yes 1.5 SSV: Proximal Calf 4.6 Yes 0.2 Mid Calf 2.7 Yes 4.7 AASV: Proximal Thigh 5.9 Yes 3.4 Mid Thigh 5.3 Yes 0.4 Distal Thigh Thrombi: Thrombus in the mid calf peroneal vein. Compressibility: Non-compressible segment in area of thrombus. Flow: No flow in area of thrombus. Deep venous reflux. Manager Of Patient: Post/prox calf 5.2mm, 1.9s reflux. Tech Note: Anechoic area in popliteal fossa measures 4.2 x 2.6 x 1.0 cm. Posterior/proximal calf varicose vein measures 4.6 mm with 0.8s reflux. Dist/medial thigh varicosity measures 4.1mm with 0.9s reflux. Findings of deep vein thrombus communicated by the technologist to the referring physician office by telephone CONCLUSION: 1. Small amount of bilateral deep vein thrombus involving the right gastrocnemius and two director athletic veins as well as the left peroneal vein 2. Moderate bilateral great saphenous vein venous insufficiency with associated dilatation, right greater than left 3. Moderate bilateral anterior accessory saphenous vein venous insufficiency with associated dilatation 4. 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 Augusto Dukes CREATININEon 12-20-2021 Creatinine [Mass/Vol] 0.66 mg/dL Normal 0.55-1.02 [facility] Comment on above: Performed By: #### Lynne EDWARD CA #### [facility] [address] [place] [address] Dr. Augusto Dukes EGFR-AF KAZAKH >60 Normal >=60 [facility] Comment on above: Performed By: #### Lynne EDWARD CA #### [facility] [address] [place] [address] Dr. Augusto Dukes EGFR-NON AF KAZAKH >60 Normal >=60 [facility] Comment on above: Performed By: #### Lynne EDWARD CA #### [facility] [address] [place] [address] Dr. Augusto Dukes XR DEXA BONE DENSITYon 12-20 XR DEXA BONE DENSITY EXAMINATION: XR DEX A BONE DENSITY, 12/20/2021 10:35 AM EDT HISTORY: Osteoporosis COMPARISON: 2019, 2017, 2015, 2014, 2011, 2007 TECHNIQUE: Dual-energy X-ray absorptiometry (DEXA) bone density study performed for the axial skeleton. FINDINGS: Bone mineral density lumbar spine L1-L3 measures 1.331 g/sq cm. This is artifactually elevated secondary to marked proliferative spondylosis Lowest bone mineral density is in the right femoral neck measuring 0.884 g/sq cm. T score -1.1. WHO classification: Osteopenia IMPRESSION: Osteopenia. Moderate fracture risk Electronically authenticated by: TRINI PAULA Date: 2021-12-20 16:55 Normal [facility] INSULINon 11-29-2021 Insulin 14.8 uIU/mL Normal 2.6-24.9 [facility] Comment on above: Performed By: #### I NFLUAB #### [facility] [address] [place] [address] Dr. Augusto Dukes T4 LABCORPon 11-29-2021 T4 [Mass/Vol] 7.8 ug/dL Normal 4.5-12.0 [facility] Comment on above: Performed By: #### T 4LC #### [facility] [address] [place] [address] Dr. Augusto Dukes BNPon 11-28-2021 Natriuretic peptide B (Bld) [Mass/Vol] 168.0 pg/mL Normal <=1,800.0 [facility] Comment on above: Performed By: #### I NFLUAB #### [facility] [address] [place] [address] Dr. Augusto Dukes CBC AUTO DIFFon 11-28-2021 BASO # 0.0 103/ul Normal 0.0-0.1 [facility] Comment on above: Performed By: #### C BC #### [facility] [address] [place] [address] Dr. Augusto Dukes Basophils/100 WBC (Bld) 0.5 % Normal 0.2-2.0 [facility] Comment on above: Performed By: #### C BC #### [facility] [address] [place] [address] Dr. Augusto Dukes EO # 0.0 103/ul Normal 0.0-0.7 [facility] Comment on above: Performed By: #### C BC #### [facility] [address] [place] [address] Dr. Augusto Dukes Eosinophils/100 WBC (Bld) 0.5 % Critically low 0.9-7.0 [facility] Comment on above: Performed By: #### C BC #### [facility] [address] [place] [address] Dr. Augusto Dukes Erythrocyte distribution width (RBC) [Ratio] 13.2 % Normal 11.0-15.0 [facility] Comment on above: Performed By: #### C BC #### [facility] [address] [place] [address] Dr. Augusto Dukes Hematocrit (Bld) [Volume fraction] 40.4 % Normal 36.0-48.0 [facility] Comment on above: Performed By: #### C BC #### [facility] [address] [place] [address] Dr. Augusto Dukes Hemoglobin (Bld) [Mass/Vol] 13.4 g/dL Normal 12.0-16.0 [facility] Comment on above: Performed By: #### C BC #### [facility] [address] [place] [address] Dr. Augusto Dukes IG # 0.01 10e3/ul Normal 0.00-0.03 [facility] Comment on above: Performed By: #### C BC #### [facility] [address] [place] [address] Dr. Augusto Dukes IG % 0.2 % Normal 0.0-0.5 [facility] Comment on above: Performed By: #### C BC #### [facility] [address] [place] [address] Dr. Augusto Dukes LYMPH # 1.0 103/ul Critically low 1.2-3.8 [facility] Comment on above: Performed By: #### C BC #### [facility] [address] [place] [address] Dr. Augusto Dukes Lymphocytes/100 WBC (Bld) 16.8 % Critically low 20.5-60.0 [facility] Comment on above: Performed By: #### C BC #### [facility] [address] [place] [address] Dr. Augusto Dukes MANUAL DIFF REQ NO Normal [facility] Comment on above: Performed By: #### C BC #### [facility] [address] [place] [address] Dr. Augusto Dukes MCH (RBC) [Entitic mass] 32.2 pg Normal 26.7-34.0 [facility] Comment on above: Performed By: #### C BC #### [facility] [address] [place] [address] Dr. Augusto Dukes MCHC (RBC) [Mass/Vol] 33.2 g/dL Normal 29.9-35.2 [facility] Comment on above: Performed By: #### C BC #### [facility] [address] [place] [address] Dr. Augusto Dukes MCV (RBC) [Entitic vol] 97.1 fL Normal 81.0-99.0 [facility] Comment on above: Performed By: #### C BC #### [facility] [address] [place] [address] Dr. Augusto Dukes MONO # 0.7 103/ul Normal 0.3-0.8 [facility] Comment on above: Performed By: #### C BC #### [facility] [address] [place] [address] Dr. Augusto Dukes Monocytes/100 WBC (Bld) 12.2 % Critically high 1.7-12.0 [facility] Comment on above: Performed By: #### C BC #### [facility] [address] [place] [address] Dr. Augusto Dukes NEUT # 4.1 103/ul Normal 1.4-6.5 [facility] Comment on above: Performed By: #### C BC #### [facility] [address] [place] [address] Dr. Augusto Dukes Neutrophils/100 WBC (Bld) 69.8 % Normal 43.0-75.0 [facility] Comment on above: Performed By: #### C BC #### [facility] [address] [place] [address] Dr. Augusto Dukes Platelet mean volume (Bld) [Entitic vol] 10.3 fL Normal 9.5-13.5 [facility] Comment on above: Performed By: #### C BC #### [facility] [address] [place] [address] Dr. Augusto Dukes PLT 201 103/ul Normal 150-450 [facility] Comment on above: Performed By: #### C BC #### [facility] [address] [place] [address] Dr. Augusto Dukes RBC 4.16 106/ul Critically low 4.20-5.40 [facility] Comment on above: Performed By: #### C BC #### [facility] [address] [place] [address] Dr. Augusto Dukes WBC 5.9 103/ul Normal 4.0-11.0 [facility] Comment on above: Performed By: #### C BC #### [facility] [address] [place] [address] Dr. Augusto Dukes CULTURE URINEon 11-28-2021 CULTURE URINE Culture Observations : LIGHT GROWTH OF MIXED GENITAL BRANDON. NO POTENTIAL PATHOGENS SEEN. Normal [facility] Comment on above: Performed By: #### I NFLUAB #### [facility] [address] [place] [address] Dr. Augusto Dukes FREE THYROXINE INDEX T7on FTI 2.57 Normal 1.30-4.50 [facility] Comment on above: Performed By: #### I NFLUAB #### [facility] [address] [place] [address] Dr. Augusto Dukes T3U 33.0 % Normal 30.0-39.0 [facility] Comment on above: Performed By: #### I NFLUAB #### [facility] [address] [place] [address] Dr. Augusto Dukes T4 [Mass/Vol] 7.80 ug/dL Normal 4.80-13.90 [facility] Comment on above: Result Comment: T4 t esting performed by [facility] Performed By: #### I NFLUAB #### [facility] [address] [place] [address] Dr. Augusto Dukes GLYCOHEMOGLOBIN A1Con 2021 ADA RECOMMENDATION SEE BELOW Normal [facility] Comment on above: Result Comment: ADA RECOMMENDED LIMIT 4.0 - 6.0 ADA THERAPEUTIC TARGET < 7.0 ACTION SUGGESTED > 7.0 Performed By: #### A 1C #### [facility] [address] [address] [address] Augusto Dukes Glucose [Mass/Vol] 97 mg/dL Normal [facility] Comment on above: Performed By: #### A 1C #### [facility] [address] [address] [address] Augusto Dukes HbA1c (Bld) [Mass fraction] 5.0 % Normal 4.5-6.2 [facility] Comment on above: Performed By: #### A 1C #### [facility] [address] [place] [address] Dr. Augusto Dukes IRONon 11-28-2021 Iron [Mass/Vol] 59.0 ug/dL Normal 50.0-170.0 [facility] Comment on above: Performed By: #### A 1C #### [facility] [address] [place] [address] Dr. Augusto Dukes LIPID PROFILEon 11-28-2021 CHOL-HDL RATIO NORM SEE BELOW Normal [facility] Comment on above: Result Comment: 3.3 - 4.4 LOW RISK 4.4 - 7.1 AVERAGE RISK 7.1 - 11.0 MODERATE RISK >11.0 HIGH RISK Performed By: #### I NFLUAB #### [facility] [address] [place] [address] Dr. Augusto Dukes Cholesterol [Mass/Vol] 197 mg/dL Normal <=200 [facility] Comment on above: Performed By: #### I NFLUAB #### [facility] [address] [place] [address] Dr. Augusto Dukes Cholesterol in HDL [Mass/Vol] 122 mg/dL Critically high 40-60 [facility] Comment on above: Performed By: #### I NFLUAB #### [facility] [address] [place] [address] Dr. Augusto Dukes Cholesterol in LDL [Mass/Vol] 68.4 mg/dL Normal [facility] Comment on above: Performed By: #### I NFLUAB #### [facility] [address] [place] [address] Dr. Augusto Dukes Cholesterol.total/Cho lesterol in HDL [Mass ratio] 1.6 {ratio} Normal [facility] Comment on above: Performed By: #### I NFLUAB #### [facility] [address] [address] [address] Augusto Dukes HDL NORMAL > or = 60 mg/dl - LO W CARDIOVASCULAR RISK <40 mg/dl - HIGH CARDIOVASCULAR RISK Normal [facility] Comment on above: Performed By: #### I NFLUAB #### [facility] [address] [address] [address] Augusto Dukes LDL CALC NORMAL SEE BELOW Normal [facility] Comment on above: Result Comment: <100 mg/dl OPTIMAL 100 - 129 mg/dl NEAR OR ABOVE OPTIMAL 130 - 159 mg/dl BORDERLINE HIGH 160 - 189 mg/dl HIGH >190 mg/dl VERY HIGH Performed By: #### I NFLUAB #### [facility] [address] [address] [address] Augusto Dukes Triglyceride [Mass/Vol] 33 mg/dL Normal <=150 [facility] Comment on above: Performed By: #### I NFLUAB #### [facility] [address] [address] [address] Augusto Dukes VLDL CALC 6.6 mg/dL Normal [facility] Comment on above: Performed By: #### I NFLUAB #### [facility] [address] [address] [address] Augusto Dukes PROF 14(COMP METB)on 022 Albumin [Mass/Vol] 3.6 g/dL Normal 3.4-5.0 [facility] Comment on above: Performed By: #### I NFLUAB #### [facility] [address] [address] [address] Augusto Dukes Albumin/Globulin [Mass ratio] 1.0 {ratio} Normal [facility] Comment on above: Performed By: #### I NFLUAB #### [facility] [address] [address] [address] Augusto Dukes ALP [Catalytic activity/Vol] 49 U/L Normal 46-116 [facility] Comment on above: Performed By: #### I NFLUAB #### [facility] [address] [address] [address] Augusto Dukes ALT [Catalytic activity/Vol] 37 U/L Normal 14-59 [facility] Comment on above: Performed By: #### I NFLUAB #### [facility] [address] [address] [address] Augusto Dukes Anion gap [Moles/Vol] 9.0 mmol/L Normal [facility] Comment on above: Performed By: #### I NFLUAB #### [facility] [address] [address] [address] Augusto Dukes AST [Catalytic activity/Vol] 26 U/L Normal 15-37 [facility] Comment on above: Performed By: #### I NFLUAB #### [facility] [address] [address] [address] Augusto Dukes Bilirubin [Mass/Vol] 0.4 mg/dL Normal 0.2-1.0 [facility] Comment on above: Performed By: #### I NFLUAB #### [facility] [address] [address] [address] Augusto Dukes Calcium [Mass/Vol] 9.0 mg/dL Normal 8.5-10.1 [facility] Comment on above: Performed By: #### I NFLUAB #### [facility] [address] [address] [address] Augusto Dukes Chloride [Moles/Vol] 97 mmol/L Critically low 98-107 [facility] Comment on above: Performed By: #### I NFLUAB #### [facility] [address] [address] [address] Augusto Dukes CO2 [Moles/Vol] 30.5 mmol/L Normal 21.0-32.0 [facility] Comment on above: Performed By: #### I NFLUAB #### [facility] [address] [address] [address] Augusto Dukes Creatinine [Mass/Vol] 0.60 mg/dL Normal 0.55-1.02 [facility] Comment on above: Performed By: #### I NFLUAB #### [facility] [address] [address] [address] Augusto Dukes EGFR-AF KAZAKH >60 Normal >=60 [facility] Comment on above: Performed By: #### I NFLUAB #### [facility] [address] [address] [address] Augusto Dukes EGFR-NON AF KAZAKH >60 Normal >=60 [facility] Comment on above: Performed By: #### I NFLUAB #### [facility] [address] [address] [address] Augusto Dukes Globulin (S) [Mass/Vol] 3.6 g/dL Normal [facility] Comment on above: Performed By: #### I NFLUAB #### [facility] [address] [address] [address] Augusto Dukes Glucose [Mass/Vol] 98 mg/dL Normal 74-106 [facility] Comment on above: Performed By: #### I NFLUAB #### [facility] [address] [address] [address] Augusto Dukes Potassium [Moles/Vol] 3.5 mmol/L Normal 3.5-5.1 [facility] Comment on above: Performed By: #### I NFLUAB #### [facility] [address] [address] [address] Augusto Dukes Protein [Mass/Vol] 7.2 g/dL Normal 6.4-8.2 [facility] Comment on above: Performed By: #### I NFLUAB #### [facility] [address] [address] [address] Augusto Dukes Sodium [Moles/Vol] 133 mmol/L Critically low 136-145 [facility] Comment on above: Performed By: #### I NFLUAB #### [facility] [address] [address] [address] Augusto Dukes Urea nitrogen [Mass/Vol] 12.0 mg/dL Normal 7.0-18.0 [facility] Comment on above: Performed By: #### I NFLUAB #### [facility] [address] [place] [address] Dr. Augusto Dukes Urea nitrogen/Creatinine [Mass ratio] 20.0 mg/mg Normal [facility] Comment on above: Performed By: #### I NFLUAB #### [facility] [address] [place] [address] Dr. Augusto Dukes TSHon 11-28-2021 TSH 1.863 uIU/mL Normal 0.358-3.740 [facility] Comment on above: Performed By: #### I NFLUAB #### [facility] [address] [place] [address] Dr. Augusto Dukes TSH RANGE SEE BELOW Normal [facility] Comment on above: Result Comment: <0.3 4 UIU/ml HYPERTHYROID 0.34-5.60 UIU/ml EUTHYROID >5.60 UIU/ml HYPOTHYROID Performed By: #### I NFLUAB #### [facility] [address] [place] [address] Dr. Augusto Dukes UA RANDOM W/MICROSCOPICon BACTERIA NONE SEEN Normal NONE SEEN [facility] Comment on above: Performed By: #### U AMIC #### [facility] [address] [place] [address] Dr. Augusto Dukes Bilirubin Ql (U) Negative Normal NEGATIVE [facility] Comment on above: Performed By: #### U AMIC #### [facility] [address] [place] [address] Dr. Augusto Dukes CAST NONE SEEN Normal NONE SEEN [facility] Comment on above: Performed By: #### U AMIC #### [facility] [address] [place] [address] Dr. Augusto Dukes Clarity (U) CLEAR Normal CLEAR [facility] Comment on above: Performed By: #### U AMIC #### [facility] [address] [place] [address] Dr. Augusto Dukes Color (U) LT. YELLOW Normal YELLOW [facility] Comment on above: Performed By: #### U AMIC #### [facility] [address] [address] [address] Augusto Dukes Crystals LM Nom (Urine sed) NONE SEEN Normal NONE SEEN [facility] Comment on above: Performed By: #### U AMIC #### [facility] [address] [address] [address] Augusto Dukes Epithelial cells LM Ql (Urine sed) FEW Abnormal NONE SEEN /RARE [facility] Comment on above: Performed By: #### U AMIC #### [facility] [address] [address] [address] Augusto Dukes Glucose Ql (U) Negative Normal NEGATIVE [facility] Comment on above: Performed By: #### U AMIC #### [facility] [address] [address] [address] Augusto Dukes Hemoglobin Ql (U) Negative Normal NEGATIVE [facility] Comment on above: Performed By: #### U AMIC #### [facility] [address] [address] [address] Augusto Dukes Ketones Ql (U) Negative Normal NEGATIVE [facility] Comment on above: Performed By: #### U AMIC #### [facility] [address] [address] [address] Augusto Dukes LEUKOCYTES Negative Normal NEGATIVE [facility] Comment on above: Performed By: #### U AMIC #### [facility] [address] [address] [address] Augusto Dukes MUCOUS SMALL Abnormal NONE SEEN [facility] Comment on above: Performed By: #### U AMIC #### [facility] [address] [address] [address] Augusto Dukes Nitrite Ql (U) Negative Normal NEGATIVE [facility] Comment on above: Performed By: #### U AMIC #### [facility] [address] [address] [address] Augusto Dukes pH (U) 7.5 [pH] Normal 5-9 [facility] Comment on above: Performed By: #### U AMIC #### [facility] [address] [address] [address] Augusto Dukes RBC NONE SEEN Abnormal 0-2 [facility] Comment on above: Performed By: #### U AMIC #### [facility] [address] [place] [address] Dr. Augusto Dukes SPEC GRAVITY 1.010 Normal 1.005-<=1.025 [facility] Comment on above: Performed By: #### U AMIC #### [facility] [address] [address] [address] Augusto Dukes UA PROTEIN Negative Normal NEGATIVE/ TRACE [facility] Comment on above: Performed By: #### U AMIC #### [facility] [address] [place] [address] Dr. Augusto Dukes Urobilinogen Qn (U) 0.2 {Lamont'U}/dL Normal 0.2 - 1. 0 [facility] Comment on above: Performed By: #### U AMIC #### [facility] [address] [place] [address] Dr. Augusto Dukes WBC NONE SEEN Normal NONE SEEN [facility] Comment on above: Performed By: #### U AMIC #### [facility] [address] [place] [address] Dr. Augusto Dukes VITAMIN D 25 OHon 11-28-2021 VIT D 25-OH 81.8 ng/mL Normal [facility] Comment on above: Performed By: #### A 1C #### [facility] [address] [place] [address] Dr. Augusto Dukes VIT D RANGES SEE BELOW Normal [facility] Comment on above: Result Comment: <20 ng/mL Vit D deficient 20 - <30 ng/mL Vit D insufficient 30 - 100 ng/mL Vit D sufficient >100 ng/mL Potential Toxicity Performed By: #### A 1C #### [facility] [address] [place] [address] Dr. Augusto Dukes ER URINE PROFILEon 2 Bilirubin Ql (U) Negative Normal NEGATIVE [facility] Comment on above: Performed By: #### E RUR #### [facility] [address] [place] [address] Dr. Augusto Dukes Clarity (U) CLEAR Normal CLEAR [facility] Comment on above: Performed By: #### E RUR #### [facility] [address] [place] [address] Dr. Augusto Dukes Color (U) LT. YELLOW Normal YELLOW [facility] Comment on above: Performed By: #### E RUR #### [facility] [address] [place] [address] Dr. Augusto LUONG A micrscopic examination will be performed if indicated. Normal [facility] Comment on above: Performed By: #### E RUR #### [facility] [address] [place] [address] Dr. Augusto Dukes Glucose Ql (U) Negative Normal NEGATIVE [facility] Comment on above: Performed By: #### E RUR #### [facility] [address] [place] [address] Dr. Augusto Dukes Hemoglobin Ql (U) Negative Normal NEGATIVE [facility] Comment on above: Performed By: #### E RUR #### [facility] [address] [place] [address] Dr. Augusto Dukes Ketones Ql (U) Negative Normal NEGATIVE [facility] Comment on above: Performed By: #### E RUR #### [facility] [address] [place] [address] Dr. Augusto Dukes LEUKOCYTES Negative Normal NEGATIVE [facility] Comment on above: Performed By: #### E RUR #### [facility] [address] [place] [address] Dr. Augusto Dukes Nitrite Ql (U) Negative Normal NEGATIVE [facility] Comment on above: Performed By: #### E RUR #### [facility] [address] [place] [address] Dr. Augusto Dukes pH (U) 6.0 [pH] Normal 5-9 [facility] Comment on above: Performed By: #### E RUR #### [facility] [address] [place] [address] Dr. Augusto Dukes SPEC GRAVITY 1.020 Normal 1.005-<=1.025 [facility] Comment on above: Performed By: #### E RUR #### [facility] [address] [address] [address] Augusto Dukes UA PROTEIN Negative Normal NEGATIVE/ TRACE [facility] Comment on above: Performed By: #### E RUR #### [facility] [address] [address] [address] Augusto Dukes UR MICRO IND NOT INDICATED Normal [facility] Comment on above: Performed By: #### E RUR #### [facility] [address] [address] [address] Augusto Dukes Urobilinogen Qn (U) 0.2 {Lamont'U}/dL Normal 0.2 - 1. 0 [facility] Comment on above: Performed By: #### E RUR #### [facility] [address] [place] [address] Dr. Augusto Dukes Encounters Encounter Date Encounter Type Care Provider Facility Start: 06-09-2023 End: 06-09-2023 ambulatory [facility] Start: 06-09-2023 Encounter for gynecological examination (general) (routine) without abnormal findings [facility] Start: 07-01-2022 End: 07-01-[address] ELIUD DA SILVA Facility:[facility] Start: 06-10-2022 End: 06-10-[address] ELIUD DA SILVA Facility:[facility] Start: 05-21-2022 End: 05-22-[address] ELIUD DA SILVA Facility:[facility] Start: 03-15-[address] ELIUD DA SILVA Facility :[facility] Start: 03-06-2022 End: 03-06-[address] GRADY CARRION Facility:[facility] Start: 02-07-2022 End: 02-08-[address] TRINI APULA Facility:[facility] Start: 02-05-2022 End: 02-05-[address] GRADY CARRION Facility:[facility] Start: 01-03-2022 End: 01-04-[address] TRINI PAULA Facility:[facility] Start: 12-31-2021 End: 01-01-[address] ELIUD DA SILVA Facility:[facility] Start: 12-20-2021 End: 12-20-[address] ELIUD DA SILVA Facility:[facility] Start: 11-28-2021 End: 11-29-[address] ELIUD DA SILVA Facility:[facility] Start: 10-27-2021 End: 10-27-2021 ambulatory SCOUT KIANA MATHEW Facility:[facility] Payers Date Payer Category Payer Self-pay [id number] 1958 Unknown [id number] 1935 Unknown [id number] 2.16.84 [id number] 1936 Unknown [id number] 2.16.84 [id number] 1936 Unknown [id number] 2.16.84 [id number] 1936 Unknown [id number] 2..84 [id number] 1936 Unknown [id number] 2.16.84 [id number] 1936 Unknown [id number] 2.16.84 [id number] 1936 Unknown [id number] 2.16.84 [id number] 1936 Unknown [id number] 2.16.84 [id number] 1936 Unknown [id number] 2.16.84 [id number] 1936 Unknown [id number] 2.16.84 [id number] 1936 Unknown [id number] 2.16.84 [id number] 1936 Unknown [id number] 2.16.84 [id number] 1936 Unknown [id number] 2.16.840 .[id number] Clinical Note 05-22-2022 Note Date & Type Note Facility 05-22-2022 Note PROCEDURE: XR KNEE L T 1_2 V, XR TIB_FIB LT 2V HISTORY: Pain in left leg ; left leg pain and bruising after falling COMPARISON: None. FINDINGS: BONES:No fracture or dislocation. Slightly high riding patella and small periarticular degenerative osteophytes. SOFT TISSUES:Prominent soft tissue swelling anterior-medial to the knee with area of increased density, likely hematoma. EFFUSION:Small joint effusion. OTHER: Negative. IMPRESSION: 1. No acute bone abnormality. Mild degenerative joint disease. 2. Small joint effusion. 3. Prominent anterior medial soft tissue swelling and likely hematoma. Electronically authenticated by: MICHELE AGUAYO Date: 2022-05-22 08:38 [facility] Clinical Note 05-22-2022 Note Date & Type Note Facility 05-22-2022 Note PROCEDURE: XR KNEE L T 1_2 V, XR TIB_FIB LT 2V HISTORY: Pain in left leg ; left leg pain and bruising after falling COMPARISON: None. FINDINGS: BONES:No fracture or dislocation. Slightly high riding patella and small periarticular degenerative osteophytes. SOFT TISSUES:Prominent soft tissue swelling anterior-medial to the knee with area of increased density, likely hematoma. EFFUSION:Small joint effusion. OTHER: Negative. IMPRESSION: 1. No acute bone abnormality. Mild degenerative joint disease. 2. Small joint effusion. 3. Prominent anterior medial soft tissue swelling and likely hematoma. Electronically authenticated by: MICHELE AGUAYO Date: 2022-05-22 08:38 [facility] Summary Purpose Family History No Family History Records FoundNo Family History Records Found Advance Directives No Advanced Directives Records FoundNo Advanced Directives Records Found Additional Source Comments INFORMATION SOURCE (unrecogn ized section and content) DATE CREATED AUTHOR 07/02/2022 [facility] DATE CREATED AUTHOR AUTHOR'S ORGANIZ ATION 06/13/2023 [facility] FOR RECORDS PERTAINING TO PATIENTS WHO ARE OR HAVE BEEN ENROLLED IN A CHEMICAL DEPENDENCY/SUBSTANCEABUSE PROGRAM, SOME INFORMATION MAY BE OMITTED. This clinical summary was aggregated from multiple sources. Caution should be exercised in using it in the provision of clinical care. This summary normalizes information from multiple sources, and as a consequence, information in this document may materially change the coding, format and clinical context of patient data. In addition, data may be omitted in some cases. CLINICAL DECISIONS SHOULD BE BASED ON THE PRIMARY CLINICAL RECORDS. [facility] [employer] [facility]. provides no warranty or guarantee of the accuracy or completeness of information in this document.
[2023-11-21 14:05] LABS: Anion Gap 9.6; BUN Creatinine Ratio 19.1; Calcium 8.8 mg/dL (8.5-10.1); Carbon Dioxide 28.4 mmol/L (21.0-32.0); Chloride 99 mmol/L (98-107); Estimated GFR (African America >60 (>=60); Estimated GFR (Non-African Ame >60 (>=60); Glucose 90 mg/dL (74-106); Sodium 133 mmol/L (136-145)
== END 2023-11-21 08:20 | disposition home or self-care (01) ==
LOC: LAB 08:19
PROVIDERS: PCP Family Medicine; Visit Provider Family Medicine
DX: E87.6 Hypokalemia (principal); I50.30 Unspecified diastolic (congestive) heart failure; I11.0 Hypertensive heart disease with heart failure
CPT/HCPCS: 36415; 80048; 83880

== ENCOUNTER 2023-12-08 10:52 | Outpatient (OUT) | payer MEDICARE, SELFPAY ==
[2023-12-08 11:30] LABS: Anion Gap 10.5; BUN Creatinine Ratio 28.2; Calcium 8.6 mg/dL (8.5-10.1); Chloride 104 mmol/L (98-107); Estimated GFR (African America >60 (>=60); Estimated GFR (Non-African Ame >60 (>=60); Glucose 75 mg/dL (74-106); Magnesium 2.2 mg/dL (1.8-2.4); Potassium 3.5 mmol/L (3.5-5.1); Sodium 142 mmol/L (136-145)
[2023-12-08 15:55] LABS: Internal Control Within Normal Limits; Occult Blood Positive
== END 2023-12-08 10:53 | disposition home or self-care (01) ==
LOC: LAB 10:52
PROVIDERS: PCP Family Medicine; Visit Provider Family Medicine
DX: E87.6 Hypokalemia (principal); R53.83 Other fatigue; E78.5 Hyperlipidemia, unspecified; R60.0 Localized edema; F41.9 Anxiety disorder, unspecified; R42 Dizziness and giddiness
CPT/HCPCS: 36415; 80048; 83735; G0328

== ENCOUNTER 2024-02-10 12:30 | Outpatient (OUT) | payer MEDICARE, SELFPAY ==
--- OUTSIDE RECORDS SUMMARY | 2024-02-10 12:37 | XMS_ITS | CCD ---
Author Organization [facility] Care Team Providers Care Personal Secretary Name Role Phone ZEHRA, DR KLINE Consulting [...] Unavailable ZEHRA, DR KLINE Primary Care Unavailable MARTÍNEZ BALTAZAR [...] Facility (1 source) Cetirizine Drug Allergy [facility] (1 source) diphenhydrAMINE Drug Allergy 6 [facility] (1 source) gamma-Aminobutyrate Drug Allergy [facility] (1 source) Ketanserin Drug Allergy [facility] (2 sources) levoFLOXacin; Translations: [LEVOFLOXACIN] Drug Allergy 3 [facility] (1 source) Cyproheptadine; Translations: [CYPROHEPTADINE HCL] [...] Onset: 2 Episodic Other aftercare (1 source) intermediate (current) use of aspirin; Translations: [INTERMEDIATE CURRENT USE OF ASPIRIN] Onset: 2 Episodic Other aftercare (1 source) Other neurosurgery physician (current) drug therapy; Translations: [OTH INTERMEDIATE CURRENT DRUG THERAPY] Onset: 2 Episodic Other [...] 07-01-2022 Calcium [Mass/Vol] 8.9 mg/dL Normal 8.5-10.1 [facility] Comment on above: Performed By: #### E RUR #### [facility] [address] [address] [address] Augusto Dukes CREATININEon 07-01-2022 Creatinine [Mass/Vol] 0.99 mg/dL Normal 0.55-1.02 [facility] Comment on above: Performed By: #### E RUR #### [facility] [address] [address] [address] Augusto Dukes EGFR-AF MALIAN >60 Normal >=60 [facility] Comment on above: Performed By: #### E RUR #### [facility] [address] [address] [address] Augusto Dukes EGFR-NON AF MALIAN 53 mL/min/1.73m2 Critically low >=60 [facility] Comment on above: Performed By: #### E RUR #### [facility] [address] [place] [address] Dr. Augusto Dukes MG MAMM SCREEN 3D VERENICE CADon 07-01-2022 MG MAMM SCREEN 3D VERENICE CAD Patient: NIGHAT NOGUEIRAMalissa Exam Date: 07/01/2022 : 1935 Gender:F Ordering : DR ELIUD DA SILVA . Admission #: [id number] Family : Order #: [id number] CLICK HERE TO VIEW EXAM RADIOLOGY REPORT [...] breast cancer at age 61. LOCATION: [facility] BREAST COMPOSITION: Scattered areas fibroglandular density. FINDINGS: [...] M.D. on 07/01/2022 at 15:58 Normal [facility] Covid-19 PCR (CVDTB)on 05-23 SARS-CoV-2 (COVID-19) RNA ADWOA+probe Ql (Unsp spec) Not detected Normal NOT DETECTED [facility] Comment on above: Result Comment: This test is not yet approved or cleared by the [place] FDA. When there are no FDA-approved or cleared tests available, and other criteria are met, FDA can make tests available under an emergency access mechanism called an Emergency Use Authorization (EUA). The EUA for this test is supported by the [place] of Health and Human Service's (HHS's) declaration [...] SARS-CoV-2. Performed By: #### I NFLUAB #### [facility] [address] [place] [address] Dr. Augusto Dukes INFLUENZA A AND B [facility] BELOW Normal [facility] Comment on above: Result Comment: Nega tive for Flu A protein angiten. Infection due to Flu A cannot be ruled out. Flu A angiten in the sample may be below the detection limit of the test. Performed By: #### I NFLUAB #### [facility] [address] [place] [address] Dr. Augusto Dukes INFLUBNEG SEE BELOW Normal [facility] Comment on above: Result Comment: Nega tive for Flu B protein antigen. Infection due to Flu B cannot be ruled out. Flu B antigen in the sample may be below the detection limit of the test. Performed By: #### I NFLUAB #### [facility] [address] [place] [address] Dr. Augusto Dukes INFLUENZA A AG Negative Normal NEGATIVE SEE COMMENT [facility] Comment on above: Performed By: #### I NFLUAB #### [facility] [address] [place] [address] Dr. Augusto Dukes INFLUENZA B AG Negative Normal NEGATIVE SEE COMMENT [facility] Comment on above: Performed By: #### I NFLUAB #### [facility] [address] [place] [address] Dr. Augusto Dukes INTERNAL CONTROLS Within Normal Limits Normal Wi thin Normal Limits [facility] Comment on above: Performed By: #### I NFLUAB #### [facility] [address] [place] [address] Dr. Augusto Dukes CULTURE URINEon 03-06-2022 CULTURE URINE Culture Observations : LIGHT GROWTH OF MIXED GENITAL BRANDON. NO POTENTIAL PATHOGENS SEEN. Normal [facility] Comment on above: Performed By: #### I NFLUAB #### [facility] [address] [address] [address] Augusto Dukes ER URINE PROFILEon 2 Bilirubin Ql (U) Negative Normal NEGATIVE [facility] Comment on above: Performed By: #### U MICRO, ERUR #### [facility] [address] [address] [address] Augusto Dukes Clarity (U) CLEAR Normal CLEAR [facility] Comment on above: Performed By: #### U MICRO, ERUR #### [facility] [address] [place] [address] Dr. Augusto Dukes Color (U) YELLOW Normal YELLOW [facility] Comment on above: Performed By: #### U MICRO, ERUR #### [facility] [address] [place] [address] Dr. Augusto Dukes ERUAHD A micrscopic examination will be performed if indicated. Normal [facility] Comment on above: Performed By: #### U MICRO, ERUR #### [facility] [address] [place] [address] Dr. Augusto Dukes Glucose Ql (U) Negative Normal NEGATIVE [facility] Comment on above: Performed By: #### U MICRO, ERUR #### [facility] [address] [address] [address] Augusto Dukes Hemoglobin Ql (U) LARGE Abnormal NEGATIVE [facility] Comment on above: Performed By: #### U MICRO, ERUR #### [facility] [address] [address] [address] Augusto Dukes Ketones Ql (U) Negative Normal NEGATIVE [facility] Comment on above: Performed By: #### U MICRO, ERUR #### [facility] [address] [place] [address] Dr. Augusto Dukes LEUKOCYTES SMALL Abnormal NEGATIVE [facility] Comment on above: Performed By: #### U MICRO, ERUR #### [facility] [address] [place] [address] Dr. Augusto Dukes Nitrite Ql (U) Negative Normal NEGATIVE [facility] Comment on above: Performed By: #### U MICRO, ERUR #### [facility] [address] [place] [address] Dr. Augusto Dukes pH (U) 8.0 [pH] Normal 5-9 [facility] Comment on above: Performed By: #### U MICRO, ERUR #### [facility] [address] [place] [address] Dr. Augusto Dukes SPEC GRAVITY 1.015 Normal 1.005-<=1.025 [facility] Comment on above: Performed By: #### U MICRO, ERUR #### [facility] [address] [place] [address] Dr. Augusto Dukes UA PROTEIN TRACE Normal NEGATIVE/ TRACE [facility] Comment on above: Performed By: #### U MICRO, ERUR #### [facility] [address] [place] [address] Dr. Augusto Dukes UR MICRO IND INDICATED Normal [facility] Comment on above: Performed By: #### U MICRO, ERUR #### [facility] [address] [place] [address] Dr. Augusto Dukes Urobilinogen Qn (U) 0.2 {Lamont'U}/dL Normal 0.2 - 1. 0 [facility] Comment on above: Performed By: #### U MICRO, ERUR #### [facility] [address] [place] [address] Dr. Augusto Dukes URINE MICROSCOPIC ONLYon AMORPHOUS CRYSTALS FEW Normal [facility] Comment on above: Performed By: #### U MICRO, ERUR #### [facility] [address] [place] [address] Dr. Augusto Dukes BACTERIA SMALL Abnormal NONE SEEN [facility] Comment on above: Performed By: #### U MICRO, ERUR #### [facility] [address] [place] [address] Dr. Augusto Dukes Bacteria identified Cx Nom (U) INDICATED Normal [facility] Comment on above: Performed By: #### U MICRO, ERUR #### [facility] [address] [place] [address] Dr. Augusto Dukes CAST NONE SEEN Normal NONE SEEN [facility] Comment on above: Performed By: #### U MICRO, ERUR #### [facility] [address] [place] [address] Dr. Augusto Dukes Crystals LM Nom (Urine sed) SEEN Abnormal NONE SEEN [facility] Comment on above: Performed By: #### U MICRO, ERUR #### [facility] [address] [place] [address] Dr. Augusto Dukes Epithelial cells LM Ql (Urine sed) RARE Normal NONE SEEN /RARE [facility] Comment on above: Performed By: #### U MICRO, ERUR #### [facility] [address] [place] [address] Dr. Augusto Dukes MUCOUS NONE SEEN Normal NONE SEEN [facility] Comment on above: Performed By: #### U MICRO, ERUR #### [facility] [address] [place] [address] Dr. Augusto Dukes RBC 20-50 Abnormal 0-2 [facility] Comment on above: Performed By: #### U MICRO, ERUR #### [facility] [address] [place] [address] Dr. Augusto Dukes WBC 10-20 Abnormal NONE SEEN [facility] Comment on above: Performed By: #### U MICRO, ERUR #### [facility] [address] [place] [address] Dr. Augusto Dukes VC CONSULT FOLLOWUPon 2021 VC CONSULT FOLLOWUP Patient: NIGHAT NOGUEIRA Exam Date: 02/07/2022 : 1935 Gender:F Ordering : DR TRINI PAULA M.D. Admission #: [id number] Family : Order #: [id number] CLICK HERE TO VIEW EXAM RADIOLOGY REPORT [...] Aguayo M.D. on 02/07/2022 at 13:59 Normal [facility] VC EXT VENOUS VERENICE LIMITEDon 02-07-2022 VC EXT VENOUS VERENICE LIMITED Patient: NIGHAT NOGUEIRA Exam Date: 02/07/2022 : 1935 Gender:F Ordering : DR TRINI PAULA M.D. Admission #: [id number] Family : Order #: [id number] CLICK HERE TO VIEW EXAM RADIOLOGY REPORT [...] Aguayo M.D. on 02/07/2022 at 13:51 Normal [facility] XR RIBS RT PA Dangelo 2 XR [...] by: MICHELE AGUAYO Date: 2022-02-05 11:00 Normal [facility] VC COMP CONSULTATIONon 01-03 VC COMP CONSULTATION Patient: NIGHAT NOGUEIRA Exam Date: 01/03/2022 : 1935 Gender:F Ordering : DR ELIUD DA SILVA . Admission #: [id number] Family : Order #: [id number] CLICK HERE TO VIEW EXAM RADIOLOGY REPORT [...] bilateral deep vein thrombus right gastrocnemius and database programmer analyst veins and left peroneal vein. Moderate bilateral [...] MD on 01/03/2022 at 11:54 Normal [facility] VC VENOUS REFLUX VERENICE LMTon 0 12-31-2021 VC VENOUS REFLUX VERENICE LMT Patient: NIGHAT NOGUEIRA Exam Date: 12/31/2021 : 1935 Gender:F Ordering : DR ELIUD DA SILVA . Admission #: [id number] Family : Order #: [id number] CLICK HERE TO VIEW EXAM RADIOLOGY REPORT [...] 1.3 cm. Mid/medial calf varicosity off of database programmer analyst measures 4.6 mm with 0.5s reflux. Mid/medial [...] in area of thrombus. Deep venous reflux. [facility]: Post/prox calf 5.2mm, 1.9s reflux. Tech Note: [...] thrombus involving the right gastrocnemius and two database programmer analyst veins as well as the left peroneal vein 2. Moderate bilateral great saphenous vein venous insufficiency with associated dilatation, right greater than left 3. Moderate bilateral anterior accessory saphenous vein venous insufficiency with associated dilatation 4. 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 Augusto Dukes CREATININEon 12-20-2021 Creatinine [Mass/Vol] 0.66 mg/dL Normal 0.55-1.02 [facility] Comment on above: Performed By: #### Lynne EDWARD CA #### [facility] [address] [place] [address] Dr. Augusto Dukes EGFR-AF MALIAN >60 Normal >=60 [facility] Comment on above: Performed By: #### Lynne EDWARD CA #### [facility] [address] [place] [address] Dr. Augusto Dukes EGFR-NON AF MALIAN >60 Normal >=60 [facility] Comment on above: Performed By: #### Lynne EDWARD CA #### [facility] [address] [place] [address] Dr. Augusto Dukes XR DEXA BONE DENSITYon [...] TRINI PAULA Date: 2021-12-20 16:55 Normal [facility] INSULINon 11-29-2021 Insulin 14.8 uIU/mL Normal 2.6-24.9 [facility] Comment on above: Performed By: #### I NFLUAB #### [facility] [address] [place] [address] Dr. Augusto Dukes T4 LABCORPon 11-29-2021 T4 [Mass/Vol] 7.8 ug/dL Normal 4.5-12.0 [facility] Comment on above: Performed By: #### T 4LC #### [facility] [address] [place] [address] Dr. Augusto Dukes BNPon 11-28-2021 Natriuretic peptide B (Bld) [Mass/Vol] 168.0 pg/mL Normal <=1,800.0 [facility] Comment on above: Performed By: #### I NFLUAB #### [facility] [address] [place] [address] Dr. Augusto Dukes CBC AUTO DIFFon 11-28-2021 BASO # 0.0 103/ul Normal 0.0-0.1 [facility] Comment on above: Performed By: #### C BC #### [facility] [address] [place] [address] Dr. Augusto Dukes Basophils/100 WBC (Bld) 0.5 % Normal 0.2-2.0 [facility] Comment on above: Performed By: #### C BC #### [facility] [address] [place] [address] Dr. Augusto Dukes EO # 0.0 103/ul Normal 0.0-0.7 [facility] Comment on above: Performed By: #### C BC #### [facility] [address] [place] [address] Dr. Augusto Dukes Eosinophils/100 WBC (Bld) 0.5 % Critically low 0.9-7.0 [facility] Comment on above: Performed By: #### C BC #### [facility] [address] [place] [address] Dr. Augusto Dukes Erythrocyte distribution width (RBC) [Ratio] 13.2 % Normal 11.0-15.0 [facility] Comment on above: Performed By: #### C BC #### [facility] [address] [place] [address] Dr. Augusto Dukes Hematocrit (Bld) [Volume fraction] 40.4 % Normal 36.0-48.0 [facility] Comment on above: Performed By: #### C BC #### [facility] [address] [place] [address] Dr. Augusto Dukes Hemoglobin (Bld) [Mass/Vol] 13.4 g/dL Normal 12.0-16.0 [facility] Comment on above: Performed By: #### C BC #### [facility] [address] [place] [address] Dr. Augusto Dukes IG # 0.01 10e3/ul Normal 0.00-0.03 [facility] Comment on above: Performed By: #### C BC #### [facility] [address] [place] [address] Dr. Augusto Dukes IG % 0.2 % Normal 0.0-0.5 [facility] Comment on above: Performed By: #### C BC #### [facility] [address] [place] [address] Dr. Augusto Dukes LYMPH # 1.0 103/ul Critically low 1.2-3.8 [facility] Comment on above: Performed By: #### C BC #### [facility] [address] [place] [address] Dr. Augusto Dukes Lymphocytes/100 WBC (Bld) 16.8 % Critically low 20.5-60.0 [facility] Comment on above: Performed By: #### C BC #### [facility] [address] [place] [address] Dr. Augusto Dukes MANUAL DIFF REQ NO Normal [facility] Comment on above: Performed By: #### C BC #### [facility] [address] [place] [address] Dr. Augusto Dukes MCH (RBC) [Entitic mass] 32.2 pg Normal 26.7-34.0 [facility] Comment on above: Performed By: #### C BC #### [facility] [address] [place] [address] Dr. Augusto Dukes MCHC (RBC) [Mass/Vol] 33.2 g/dL Normal 29.9-35.2 [facility] Comment on above: Performed By: #### C BC #### [facility] [address] [place] [address] Dr. Augusto Dukes MCV (RBC) [Entitic vol] 97.1 fL Normal 81.0-99.0 [facility] Comment on above: Performed By: #### C BC #### [facility] [address] [place] [address] Dr. Augusto Dukes MONO # 0.7 103/ul Normal 0.3-0.8 [facility] Comment on above: Performed By: #### C BC #### [facility] [address] [place] [address] Dr. Augusto Dukes Monocytes/100 WBC (Bld) 12.2 % Critically high 1.7-12.0 [facility] Comment on above: Performed By: #### C BC #### [facility] [address] [place] [address] Dr. Augusto Dukes NEUT # 4.1 103/ul Normal 1.4-6.5 [facility] Comment on above: Performed By: #### C BC #### [facility] [address] [place] [address] Dr. Augusto Dukes Neutrophils/100 WBC (Bld) 69.8 % Normal 43.0-75.0 [facility] Comment on above: Performed By: #### C BC #### [facility] [address] [place] [address] Dr. Augusto Dukes Platelet mean volume (Bld) [Entitic vol] 10.3 fL Normal 9.5-13.5 [facility] Comment on above: Performed By: #### C BC #### [facility] [address] [place] [address] Dr. Augusto Dukes PLT 201 103/ul Normal 150-450 [facility] Comment on above: Performed By: #### C BC #### [facility] [address] [place] [address] Dr. Augusto Dukes RBC 4.16 106/ul Critically low 4.20-5.40 [facility] Comment on above: Performed By: #### C BC #### [facility] [address] [place] [address] Dr. Augusto Dukes WBC 5.9 103/ul Normal 4.0-11.0 [facility] Comment on above: Performed By: #### C BC #### [facility] [address] [place] [address] Dr. Augusto Dukes CULTURE URINEon 11-28-2021 CULTURE URINE Culture Observations : LIGHT GROWTH OF MIXED GENITAL BRANDON. NO POTENTIAL PATHOGENS SEEN. Normal [facility] Comment on above: Performed By: #### I NFLUAB #### [facility] [address] [place] [address] Dr. Augusto Dukes FREE THYROXINE INDEX T7on FTI 2.57 Normal 1.30-4.50 [facility] Comment on above: Performed By: #### I NFLUAB #### [facility] [address] [place] [address] Dr. Augusto Dukes T3U 33.0 % Normal 30.0-39.0 [facility] Comment on above: Performed By: #### I NFLUAB #### [facility] [address] [place] [address] Dr. Augusto Dukes T4 [Mass/Vol] 7.80 ug/dL Normal 4.80-13.90 [facility] Comment on above: Result Comment: T4 t esting performed by [facility] Performed By: #### I NFLUAB #### [facility] [address] [place] [address] Dr. Augusto Dukes GLYCOHEMOGLOBIN A1Con 2021 ADA RECOMMENDATION SEE BELOW Normal [facility] Comment on above: Result Comment: ADA RECOMMENDED LIMIT 4.0 - 6.0 ADA THERAPEUTIC TARGET < 7.0 ACTION SUGGESTED > 7.0 Performed By: #### A 1C #### [facility] [address] [address] [address] Augusto Dukes Glucose [Mass/Vol] 97 mg/dL Normal [facility] Comment on above: Performed By: #### A 1C #### [facility] [address] [address] [address] Augusto Dukes HbA1c (Bld) [Mass fraction] 5.0 % Normal 4.5-6.2 [facility] Comment on above: Performed By: #### A 1C #### [facility] [address] [place] [address] Dr. Augusto Dukes IRONon 11-28-2021 Iron [Mass/Vol] 59.0 ug/dL Normal 50.0-170.0 [facility] Comment on above: Performed By: #### A 1C #### [facility] [address] [place] [address] Dr. Augusto Dukes LIPID PROFILEon 11-28-2021 CHOL-HDL RATIO NORM SEE BELOW Normal [facility] Comment on above: Result Comment: 3.3 - 4.4 LOW RISK 4.4 - 7.1 AVERAGE RISK 7.1 - 11.0 MODERATE RISK >11.0 HIGH RISK Performed By: #### I NFLUAB #### [facility] [address] [place] [address] Dr. Augusto Dukes Cholesterol [Mass/Vol] 197 mg/dL Normal <=200 [facility] Comment on above: Performed By: #### I NFLUAB #### [facility] [address] [place] [address] Dr. Augusto Dukes Cholesterol in HDL [Mass/Vol] 122 mg/dL Critically high 40-60 [facility] Comment on above: Performed By: #### I NFLUAB #### [facility] [address] [place] [address] Dr. Augusto Dukes Cholesterol in LDL [Mass/Vol] 68.4 mg/dL Normal [facility] Comment on above: Performed By: #### I NFLUAB #### [facility] [address] [place] [address] Dr. Augusto Dukes Cholesterol.total/Cho lesterol in HDL [Mass ratio] 1.6 {ratio} Normal [facility] Comment on above: Performed By: #### I NFLUAB #### [facility] [address] [address] [address] Augusto Dukes HDL NORMAL > or = 60 mg/dl - LO W CARDIOVASCULAR RISK <40 mg/dl - HIGH CARDIOVASCULAR RISK Normal [facility] Comment on above: Performed By: #### I NFLUAB #### [facility] [address] [address] [address] Augusto Dukes LDL CALC NORMAL SEE BELOW Normal [facility] Comment on above: Result Comment: <100 mg/dl OPTIMAL 100 - 129 mg/dl NEAR OR ABOVE OPTIMAL 130 - 159 mg/dl BORDERLINE HIGH 160 - 189 mg/dl HIGH >190 mg/dl VERY HIGH Performed By: #### I NFLUAB #### [facility] [address] [address] [address] Augusto Dukes Triglyceride [Mass/Vol] 33 mg/dL Normal <=150 [facility] Comment on above: Performed By: #### I NFLUAB #### [facility] [address] [address] [address] Augusto Dukes VLDL CALC 6.6 mg/dL Normal [facility] Comment on above: Performed By: #### I NFLUAB #### [facility] [address] [address] [address] Augusto Dukes PROF 14(COMP METB)on 022 Albumin [Mass/Vol] 3.6 g/dL Normal 3.4-5.0 [facility] Comment on above: Performed By: #### I NFLUAB #### [facility] [address] [address] [address] Augusto Dukes Albumin/Globulin [Mass ratio] 1.0 {ratio} Normal [facility] Comment on above: Performed By: #### I NFLUAB #### [facility] [address] [address] [address] Augusto Dukes ALP [Catalytic activity/Vol] 49 U/L Normal 46-116 [facility] Comment on above: Performed By: #### I NFLUAB #### [facility] [address] [address] [address] Augusto Dukes ALT [Catalytic activity/Vol] 37 U/L Normal 14-59 [facility] Comment on above: Performed By: #### I NFLUAB #### [facility] [address] [address] [address] Augusto Dukes Anion gap [Moles/Vol] 9.0 mmol/L Normal [facility] Comment on above: Performed By: #### I NFLUAB #### [facility] [address] [address] [address] Augusto Dukes AST [Catalytic activity/Vol] 26 U/L Normal 15-37 [facility] Comment on above: Performed By: #### I NFLUAB #### [facility] [address] [address] [address] Augusto Dukes Bilirubin [Mass/Vol] 0.4 mg/dL Normal 0.2-1.0 [facility] Comment on above: Performed By: #### I NFLUAB #### [facility] [address] [address] [address] Augusto Dukes Calcium [Mass/Vol] 9.0 mg/dL Normal 8.5-10.1 [facility] Comment on above: Performed By: #### I NFLUAB #### [facility] [address] [address] [address] Augusto Dukes Chloride [Moles/Vol] 97 mmol/L Critically low 98-107 [facility] Comment on above: Performed By: #### I NFLUAB #### [facility] [address] [address] [address] Augusto Dukes CO2 [Moles/Vol] 30.5 mmol/L Normal 21.0-32.0 [facility] Comment on above: Performed By: #### I NFLUAB #### [facility] [address] [address] [address] Augusto Dukes Creatinine [Mass/Vol] 0.60 mg/dL Normal 0.55-1.02 [facility] Comment on above: Performed By: #### I NFLUAB #### [facility] [address] [address] [address] Augusto Dukes EGFR-AF MALIAN >60 Normal >=60 [facility] Comment on above: Performed By: #### I NFLUAB #### [facility] [address] [address] [address] Augusto Dukes EGFR-NON AF MALIAN >60 Normal >=60 [facility] Comment on above: Performed By: #### I NFLUAB #### [facility] [address] [address] [address] Augusto Dukes Globulin (S) [Mass/Vol] 3.6 g/dL Normal [facility] Comment on above: Performed By: #### I NFLUAB #### [facility] [address] [address] [address] Augusto Dukes Glucose [Mass/Vol] 98 mg/dL Normal 74-106 [facility] Comment on above: Performed By: #### I NFLUAB #### [facility] [address] [address] [address] Augusto Dukes Potassium [Moles/Vol] 3.5 mmol/L Normal 3.5-5.1 [facility] Comment on above: Performed By: #### I NFLUAB #### [facility] [address] [address] [address] Augusto Dukes Protein [Mass/Vol] 7.2 g/dL Normal 6.4-8.2 [facility] Comment on above: Performed By: #### I NFLUAB #### [facility] [address] [address] [address] Augusto Dukes Sodium [Moles/Vol] 133 mmol/L Critically low 136-145 [facility] Comment on above: Performed By: #### I NFLUAB #### [facility] [address] [address] [address] Augusto Dukes Urea nitrogen [Mass/Vol] 12.0 mg/dL Normal 7.0-18.0 [facility] Comment on above: Performed By: #### I NFLUAB #### [facility] [address] [place] [address] Dr. Augusto Dukes Urea nitrogen/Creatinine [Mass ratio] 20.0 mg/mg Normal [facility] Comment on above: Performed By: #### I NFLUAB #### [facility] [address] [place] [address] Dr. Augusto Dukes TSHon 11-28-2021 TSH 1.863 uIU/mL Normal 0.358-3.740 [facility] Comment on above: Performed By: #### I NFLUAB #### [facility] [address] [place] [address] Dr. Augusto Dukes TSH RANGE SEE BELOW Normal [facility] Comment on above: Result Comment: <0.3 4 UIU/ml HYPERTHYROID 0.34-5.60 UIU/ml EUTHYROID >5.60 UIU/ml HYPOTHYROID Performed By: #### I NFLUAB #### [facility] [address] [place] [address] Dr. Augusto Dukes UA RANDOM W/MICROSCOPICon BACTERIA NONE SEEN Normal NONE SEEN [facility] Comment on above: Performed By: #### U AMIC #### [facility] [address] [place] [address] Dr. Augusto Dukes Bilirubin Ql (U) Negative Normal NEGATIVE [facility] Comment on above: Performed By: #### U AMIC #### [facility] [address] [place] [address] Dr. Augusto Dukes CAST NONE SEEN Normal NONE SEEN [facility] Comment on above: Performed By: #### U AMIC #### [facility] [address] [place] [address] Dr. Augusto Dukes Clarity (U) CLEAR Normal CLEAR [facility] Comment on above: Performed By: #### U AMIC #### [facility] [address] [place] [address] Dr. Augusto Dukes Color (U) LT. YELLOW Normal YELLOW [facility] Comment on above: Performed By: #### U AMIC #### [facility] [address] [address] [address] Augusto Dukes Crystals LM Nom (Urine sed) NONE SEEN Normal NONE SEEN [facility] Comment on above: Performed By: #### U AMIC #### [facility] [address] [address] [address] Augusto Dukes Epithelial cells LM Ql (Urine sed) FEW Abnormal NONE SEEN /RARE [facility] Comment on above: Performed By: #### U AMIC #### [facility] [address] [address] [address] Augusto Dukes Glucose Ql (U) Negative Normal NEGATIVE [facility] Comment on above: Performed By: #### U AMIC #### [facility] [address] [address] [address] Augusto Dukes Hemoglobin Ql (U) Negative Normal NEGATIVE [facility] Comment on above: Performed By: #### U AMIC #### [facility] [address] [address] [address] Augusto Dukes Ketones Ql (U) Negative Normal NEGATIVE [facility] Comment on above: Performed By: #### U AMIC #### [facility] [address] [address] [address] Augusto Dukes LEUKOCYTES Negative Normal NEGATIVE [facility] Comment on above: Performed By: #### U AMIC #### [facility] [address] [address] [address] Augusto Dukes MUCOUS SMALL Abnormal NONE SEEN [facility] Comment on above: Performed By: #### U AMIC #### [facility] [address] [address] [address] Augusto Dukes Nitrite Ql (U) Negative Normal NEGATIVE [facility] Comment on above: Performed By: #### U AMIC #### [facility] [address] [address] [address] Augusto Dukes pH (U) 7.5 [pH] Normal 5-9 [facility] Comment on above: Performed By: #### U AMIC #### [facility] [address] [address] [address] Augusto Dukes RBC NONE SEEN Abnormal 0-2 [facility] Comment on above: Performed By: #### U AMIC #### [facility] [address] [place] [address] Dr. Augusto Dukes SPEC GRAVITY 1.010 Normal 1.005-<=1.025 [facility] Comment on above: Performed By: #### U AMIC #### [facility] [address] [address] [address] Augusto Dukes UA PROTEIN Negative Normal NEGATIVE/ TRACE [facility] Comment on above: Performed By: #### U AMIC #### [facility] [address] [place] [address] Dr. Augusto Dukes Urobilinogen Qn (U) 0.2 {Lamont'U}/dL Normal 0.2 - 1. 0 [facility] Comment on above: Performed By: #### U AMIC #### [facility] [address] [place] [address] Dr. Augusto Dukes WBC NONE SEEN Normal NONE SEEN [facility] Comment on above: Performed By: #### U AMIC #### [facility] [address] [place] [address] Dr. Augusto Dukes VITAMIN D 25 OHon 11-28-2021 VIT D 25-OH 81.8 ng/mL Normal [facility] Comment on above: Performed By: #### A 1C #### [facility] [address] [place] [address] Dr. Augusto Dukes VIT D RANGES SEE BELOW Normal [facility] Comment on above: Result Comment: <20 ng/mL Vit D deficient 20 - <30 ng/mL Vit D insufficient 30 - 100 ng/mL Vit D sufficient >100 ng/mL Potential Toxicity Performed By: #### A 1C #### [facility] [address] [place] [address] Dr. Augusto Dukes ER URINE PROFILEon 2 Bilirubin Ql (U) Negative Normal NEGATIVE [facility] Comment on above: Performed By: #### E RUR #### [facility] [address] [place] [address] Dr. Augusto Dukes Clarity (U) CLEAR Normal CLEAR [facility] Comment on above: Performed By: #### E RUR #### [facility] [address] [place] [address] Dr. Augusto Dukes Color (U) LT. YELLOW Normal YELLOW [facility] Comment on above: Performed By: #### E RUR #### [facility] [address] [place] [address] Dr. Augusto LUONG A micrscopic examination will be performed if indicated. Normal [facility] Comment on above: Performed By: #### E RUR #### [facility] [address] [place] [address] Dr. Augusto Dukes Glucose Ql (U) Negative Normal NEGATIVE [facility] Comment on above: Performed By: #### E RUR #### [facility] [address] [place] [address] Dr. Augusto Dukes Hemoglobin Ql (U) Negative Normal NEGATIVE [facility] Comment on above: Performed By: #### E RUR #### [facility] [address] [place] [address] Dr. Augusto Dukes Ketones Ql (U) Negative Normal NEGATIVE [facility] Comment on above: Performed By: #### E RUR #### [facility] [address] [place] [address] Dr. Augusto Dukes LEUKOCYTES Negative Normal NEGATIVE [facility] Comment on above: Performed By: #### E RUR #### [facility] [address] [place] [address] Dr. Augusto Dukes Nitrite Ql (U) Negative Normal NEGATIVE [facility] Comment on above: Performed By: #### E RUR #### [facility] [address] [place] [address] Dr. Augusto Dukes pH (U) 6.0 [pH] Normal 5-9 [facility] Comment on above: Performed By: #### E RUR #### [facility] [address] [place] [address] Dr. Augusto Dukes SPEC GRAVITY 1.020 Normal 1.005-<=1.025 [facility] Comment on above: Performed By: #### E RUR #### [facility] [address] [address] [address] Augusto Dukes UA PROTEIN Negative Normal NEGATIVE/ TRACE [facility] Comment on above: Performed By: #### E RUR #### [facility] [address] [address] [address] Augusto Dukes UR MICRO IND NOT INDICATED Normal [facility] Comment on above: Performed By: #### E RUR #### [facility] [address] [address] [address] Augusto Dukes Urobilinogen Qn (U) 0.2 {Lamont'U}/dL Normal 0.2 - 1. 0 [facility] Comment on above: Performed By: #### E RUR #### [facility] [address] [place] [address] Dr. Augusto Dukes Encounters Encounter Date Encounter Type Care Provider Facility Start: 06-09-2023 End: 06-09-2023 ambulatory [facility] Start: 06-09-2023 Encounter for gynecological examination (general) (routine) without abnormal findings [facility] Start: 07-01-2022 End: 07-01-[address] ELIUD DA SILVA Facility:[facility] Start: 06-10-2022 End: 06-10-[address] ELIUD DA SILVA Facility:[facility] Start: 05-21-2022 End: 05-22-[address] ELIUD DA SILVA Facility:[facility] Start: 03-15-[address] ELIUD DA SILVA Facility :[facility] Start: 03-06-2022 End: 03-06-[address] GRADY CARRION Facility:[facility] Start: 02-07-2022 End: 02-08-[address] TRINI PAULA Facility:[facility] Start: 02-05-2022 End: 02-05-[address] [...] Facility:[facility] Payers Date Payer Category Payer Self-pay [id number] 1958 Unknown [id number] 1935 Unknown [id number] 2.16.84 [id number] 1935 Unknown [id number] 2.16.84 [id number] 1936 Unknown [id number] 2.16.84 [id number] 1936 Unknown [id number] 2..84 [id number] 1936 Unknown [id number] 2.16.84 [id number] 1936 Unknown [id number] 2.16.84 [id number] 1936 Unknown [id number] 2.16.84 [id number] 1936 Unknown [id number] 2.16.84 [id number] 1936 Unknown [id number] 2.16.84 [id number] 1936 Unknown [id number] 2.16.84 [id number] 1936 Unknown [id number] 2.16.84 [id number] 1936 Unknown [id number] 2.16.84 [id number] 1936 Unknown [id number] 2.16.840 .[id number] Clinical Note 05-22-2022 Note Date & Type [...] by: MICHELE AGUAYO Date: 2022-05-22 08:38 [facility] Clinical Note 05-22-2022 Note Date & Type [...] authenticated by: MICHELE AGUAYO Date: 2022-05-22 08:38 [facility] Summary Purpose Family History No Family History Records FoundNo Family History Records Found Advance Directives No Advanced Directives Records FoundNo Advanced Directives Records Found Additional Source Comments INFORMATION SOURCE (unrecogn ized section and content) DATE CREATED AUTHOR 07/02/2022 [facility] DATE CREATED AUTHOR AUTHOR'S ORGANIZ ATION 06/13/2023 [...] BE BASED ON THE PRIMARY CLINICAL RECORDS. [facility]. provides no warranty or guarantee of the accuracy or completeness of information in this document.
--- NOTE | 2024-02-10 12:52 | XR_ITS ---
The [address] [address] Patient Name: NIGHAT NOGUEIRA MRN: [id number] date: 1935 Sex: F Assigned Patient Location: [facility] Current Patient Location: [facility] Accession/Order Number: [id number] Exam Date: 02/10/2024 12:40 Report Date: 02/10/2024 16:23 At the request of: ELIUD SHAHID Procedure: XR DEXA axial skeleton EXAMINATION: XR DEXA axial skeleton, 02/10/2024 12:40 PM EDT HISTORY: m81.0 COMPARISON: Multiple prior exams the latest 2021 TECHNIQUE: Dual-energy X-ray absorptiometry (DEXA) bone density study performed for the axial skeleton. FINDINGS: Bone mineral density of the AP spine L1-L3 measures 1.287 g/sq cm. T score 1.0. Normal Lowest bone mineral density right femoral trochanter measures 0.752 g/sq cm. T score -0.9. Normal XR/XR DEXA axial skeleton IMPRESSION: Normal bone mineral density. Low fracture risk Pharmacologic treatment recommendations * No uniform recommendation applies to all patients. Management plans must be individualized. * Consider initiating pharmacologic treatment in postmenopausal women and men >= 50 years of age who have the following: Primary fracture prevention: * T-score <= - 2.5 at the femoral neck, total hip, lumbar spine, 33% radius (some uncertainty with existing data) by DXA. * Low bone mass (osteopenia: T-score between - 1.0 and - 2.5) at the femoral neck or total hip by DXA with a 10-year hip fracture risk >= 3% or a 10-year major osteoporosis-related fracture risk >= 20% (i.e., clinical vertebral, hip, forearm, or proximal humerus) based on the [place]-adapted FRAXregistered model. Secondary fracture prevention: * Fracture of the hip or vertebra regardless of BMD [4, 5]. * Fracture of proximal humerus, pelvis, or distal forearm in persons with low bone mass (osteopenia: T-score between - 1.0 and - 2.5). The decision to treat should be individualized in persons with a fracture of the proximal humerus, pelvis, or distal forearm who do not have osteopenia or low BMD [12, 13]. Anastasiya MS, Pura SL, Yaakov KL, Leida EM, Alona KG, Figueroa AJ, Josy ES. The clinician's guide to prevention and treatment of osteoporosis. Osteoporos Int. 2021;33(10):5017-1706. doi: 10.1007/[id number]-z. Epub 2021Oct 18. Erratum in: Osteoporos Int. 2021Jan 17;: PMID: 15153934; PMCID: [id number]. Electronically authenticated by: TRINI PAULA Date: 02/10/2024 16:23
== END 2024-02-10 12:31 | disposition home or self-care (01) ==
LOC: RAD 12:30
PROVIDERS: PCP Family Medicine; Visit Provider Family Medicine
DX: M81.0 Age-related osteoporosis without current pathological fracture (principal)
CPT/HCPCS: 77080

== ENCOUNTER 2024-02-27 09:32 | Outpatient (RCR) | payer MEDICARE, SELFPAY ==
[2024-02-27 11:41] LABS: Calcium 8.9 mg/dL (8.5-10.1); Estimated GFR (African America >60 (>=60); Estimated GFR (Non-African Ame >60 (>=60)
[2024-02-27] MEDS: DENOSUMAB 60 MG/ML SYRINGE SUBQ (12:37)
[2024-02-27 12:41] VITALS: BP 112/71; PULSE 84; TEMP 36.1; O2SAT 98
--- NOTE | 2024-02-27 12:43 | PC.NURSE ---
1230: Pt. to [facility] amb. for injection. Seated in recliner. Labs reviewed. VSS. Medicated with Prolia as directed, see documentation. No bleeding to site. Pt. tolerates without c/o. 1243: Pt. without change, d/c'd amb. to home.
== END 2024-03-22 12:00 | disposition home or self-care (01) ==
LOC: LAB 09:32
PROVIDERS: PCP Family Medicine; Visit Provider Family Medicine
DX: M81.0 Age-related osteoporosis without current pathological fracture (principal)
CPT/HCPCS: 36415; 82310; 82565; 96372; J0897

== ENCOUNTER 2024-03-20 15:32 | Emergency (ER) | payer MEDICARE, SELFPAY ==
[2024-03-20 15:40] VITALS: BP 162/94; PULSE 96; TEMP 36.4; O2SAT 97; BMI 25.4
--- OUTSIDE RECORDS SUMMARY | 2024-03-20 15:40 | XMS_ITS | CCD ---
Author Organization [facility] Care Team Providers Care Full Stack Python Developer Name Role Phone ZEHRA, DR KLINE Consulting Unavailable BRUCEY, DR KLINE [...] KLINE Primary Care Unavailable HOJacki, DR KLINE Consulting Unavailable ZEHRA, DR KLINE Primary Care Unavailable HOJacki, DR KLINE Attending Unavailable HOY, DR KLINE Admitting Unavailable WEST, DR FELIZ Consulting Unavailable WEST, DR FELIZ Consulting Unavailable HOY, DR KLINE Primary Care Unavailable WEST, DR FELIZ Attending Unavailable WEST, DR FELIZ Admitting Unavailable Zieber, DR Bautista Consulting Unavailable NISA, DR FELIZ Consulting Unavailable ZEHRA, DR KLINE Attending Unavailable BRUCEY, DR KLINE Admitting Unavailable HOY, DR KLINE [...] Facility (1 source) Cetirizine Drug Allergy [facility] Repository (1 source) diphenhydrAMINE Drug Allergy 6 [facility] Repository (1 source) gamma-Aminobutyrate Drug Allergy [facility] Repository (1 source) Ketanserin Drug Allergy [facility] Repository (2 sources) levoFLOXacin; Translations: [LEVOFLOXACIN] Drug Allergy 3 [facility] Repository (1 source) Cyproheptadine; Translations: [CYPROHEPTADINE [...] Onset: 2 Episodic Other aftercare (1 source) shelter (current) use of aspirin; Translations: [ASSISTED CURRENT USE OF ASPIRIN] Onset: 2 Episodic Other aftercare (1 source) Other shelter (current) drug therapy; Translations: [OTH TAILOR'S AIDE CURRENT DRUG THERAPY] Onset: 2 Episodic Other [...] 07-01-2022 Calcium [Mass/Vol] 8.9 mg/dL Normal 8.5-10.1 [facility] Comment on above: Performed By: #### E RUR #### [facility] [address] [address] [address] Augusto Dukes CREATININEon 07-01-2022 Creatinine [Mass/Vol] 0.99 mg/dL Normal 0.55-1.02 [facility] Comment on above: Performed By: #### E RUR #### [facility] [address] [address] [address] Augusto Dukes EGFR-AF CHINESE >60 Normal >=60 [facility] Comment on above: Performed By: #### E RUR #### [facility] [address] [address] [address] Augusto Dukes EGFR-NON AF CHINESE 53 mL/min/1.73m2 Critically low >=60 [facility] Comment on above: Performed By: #### E RUR #### [facility] [address] [place] [address] Dr. Augusto Dukes MG MAMM SCREEN 3D VERENICE CADon 07-01-2022 MG MAMM SCREEN 3D VERENICE CAD Patient: NIGHAT NOGUEIRAMalissa Exam Date: 07/01/2022 : 1935 Gender:F Ordering : DR ELIUD DA SILVA . Admission #: [id number] Family : Order #: [id number] CLICK HERE TO VIEW EXAM RADIOLOGY REPORT [...] breast cancer at age 61. LOCATION: [facility] BREAST COMPOSITION: Scattered areas fibroglandular density. [...] M.D. on 07/01/2022 at 15:58 Normal [facility] Covid-19 PCR (CVDTB)on 05-23 SARS-CoV-2 (COVID-19) RNA ADWOA+probe Ql (Unsp spec) Not detected Normal NOT DETECTED [facility] Comment on above: Result Comment: This test is not yet approved or cleared by the [place] FDA. When there are no FDA-approved or cleared tests available, and other criteria are met, FDA can make tests available under an emergency access mechanism called an Emergency Use Authorization (EUA). The EUA for this test is supported by the Data Processing Control Clerk of Health and Human Service's (HHS's) declaration [...] SARS-CoV-2. Performed By: #### I NFLUAB #### [facility] [address] [place] [address] Dr. Augusto Dukes INFLUENZA A AND B [facility] Normal [facility] Comment on above: Result Comment: Nega tive for Flu A protein angiten. Infection due to Flu A cannot be ruled out. Flu A angiten in the sample may be below the detection limit of the test. Performed By: #### I NFLUAB #### [facility] [address] [place] [address] Dr. Augusto Dukes INFLUBNEG SEE BELOW Normal [facility] Comment on above: Result Comment: Nega tive for Flu B protein antigen. Infection due to Flu B cannot be ruled out. Flu B antigen in the sample may be below the detection limit of the test. Performed By: #### I NFLUAB #### [facility] [address] [place] [address] Dr. Augusto Dukes INFLUENZA A AG Negative Normal NEGATIVE SEE COMMENT [facility] Comment on above: Performed By: #### I NFLUAB #### [facility] [address] [place] [address] Dr. Augusto Dukes INFLUENZA B AG Negative Normal NEGATIVE SEE COMMENT [facility] Comment on above: Performed By: #### I NFLUAB #### [facility] [address] [place] [address] Dr. Augusto Dukes INTERNAL CONTROLS Within Normal Limits Normal Wi thin Normal Limits [facility] Comment on above: Performed By: #### I NFLUAB #### [facility] [address] [place] [address] Dr. Augusto Dukes CULTURE URINEon 03-06-2022 CULTURE URINE Culture Observations : LIGHT GROWTH OF MIXED GENITAL BRANDON. NO POTENTIAL PATHOGENS SEEN. Normal [facility] Comment on above: Performed By: #### I NFLUAB #### [facility] [address] [address] [address] Augusto Dukes ER URINE PROFILEon 2 Bilirubin Ql (U) Negative Normal NEGATIVE [facility] Comment on above: Performed By: #### U MICRO, ERUR #### [facility] [address] [address] [address] Augusto Dukes Clarity (U) CLEAR Normal CLEAR [facility] Comment on above: Performed By: #### U MICRO, ERUR #### [facility] [address] [place] [address] Dr. Augusto Dukes Color (U) YELLOW Normal YELLOW [facility] Comment on above: Performed By: #### U MICRO, ERUR #### [facility] [address] [place] [address] Dr. Augusto Dukes ERUAHD A micrscopic examination will be performed if indicated. Normal [facility] Comment on above: Performed By: #### U MICRO, ERUR #### [facility] [address] [place] [address] Dr. Augusto Dukes Glucose Ql (U) Negative Normal NEGATIVE [facility] Comment on above: Performed By: #### U MICRO, ERUR #### [facility] [address] [address] [address] Augusto Dukes Hemoglobin Ql (U) LARGE Abnormal NEGATIVE [facility] Comment on above: Performed By: #### U MICRO, ERUR #### [facility] [address] [address] [address] Augusto Dukes Ketones Ql (U) Negative Normal NEGATIVE [facility] Comment on above: Performed By: #### U MICRO, ERUR #### [facility] [address] [place] [address] Dr. Augusto Dukes LEUKOCYTES SMALL Abnormal NEGATIVE [facility] Comment on above: Performed By: #### U MICRO, ERUR #### [facility] [address] [place] [address] Dr. Augusto Dukes Nitrite Ql (U) Negative Normal NEGATIVE [facility] Comment on above: Performed By: #### U MICRO, ERUR #### [facility] [address] [place] [address] Dr. Augusto Dukes pH (U) 8.0 [pH] Normal 5-9 [facility] Comment on above: Performed By: #### U MICRO, ERUR #### [facility] [address] [place] [address] Dr. Augusto Dukes SPEC GRAVITY 1.015 Normal 1.005-<=1.025 [facility] Comment on above: Performed By: #### U MICRO, ERUR #### [facility] [address] [place] [address] Dr. Augusto Dukes UA PROTEIN TRACE Normal NEGATIVE/ TRACE [facility] Comment on above: Performed By: #### U MICRO, ERUR #### [facility] [address] [place] [address] Dr. Augusto Dukes UR MICRO IND INDICATED Normal [facility] Comment on above: Performed By: #### U MICRO, ERUR #### [facility] [address] [place] [address] Dr. Augusto Dukes Urobilinogen Qn (U) 0.2 {Lamont'U}/dL Normal 0.2 - 1. 0 [facility] Comment on above: Performed By: #### U MICRO, ERUR #### [facility] [address] [place] [address] Dr. Augusto Dukes URINE MICROSCOPIC ONLYon AMORPHOUS CRYSTALS FEW Normal [facility] Comment on above: Performed By: #### U MICRO, ERUR #### [facility] [address] [place] [address] Dr. Aguusto Dukes BACTERIA SMALL Abnormal NONE SEEN [facility] Comment on above: Performed By: #### U MICRO, ERUR #### [facility] [address] [place] [address] Dr. Augusto Dukes Bacteria identified Cx Nom (U) INDICATED Normal [facility] Comment on above: Performed By: #### U MICRO, ERUR #### [facility] [address] [place] [address] Dr. Augusto Dukes CAST NONE SEEN Normal NONE SEEN [facility] Comment on above: Performed By: #### U MICRO, ERUR #### [facility] [address] [place] [address] Dr. Augusto Dukes Crystals LM Nom (Urine sed) SEEN Abnormal NONE SEEN [facility] Comment on above: Performed By: #### U MICRO, ERUR #### [facility] [address] [place] [address] Dr. Augusto Dukes Epithelial cells LM Ql (Urine sed) RARE Normal NONE SEEN /RARE [facility] Comment on above: Performed By: #### U MICRO, ERUR #### [facility] [address] [place] [address] Dr. Augusto Dukes MUCOUS NONE SEEN Normal NONE SEEN [facility] Comment on above: Performed By: #### U MICRO, ERUR #### [facility] [address] [place] [address] Dr. Augusto Dukes RBC 20-50 Abnormal 0-2 [facility] Comment on above: Performed By: #### U MICRO, ERUR #### [facility] [address] [place] [address] Dr. Augusto Dukes WBC 10-20 Abnormal NONE SEEN [facility] Comment on above: Performed By: #### U MICRO, ERUR #### [facility] [address] [place] [address] Dr. Augusto Dukes VC CONSULT FOLLOWUPon 2021 VC CONSULT FOLLOWUP Patient: NIGHAT NOGUEIRA Exam Date: 02/07/2022 : 1935 Gender:F Ordering : DR TRINI PAULA M.D. Admission #: [id number] Family : Order #: [id number] CLICK HERE TO VIEW EXAM RADIOLOGY REPORT [...] Da Silva and follow-up with Dr. Da Silav. 2. Wear knee high compression stockings to aid with symptoms. Patient will follow-up with vein and body center in future if needed. Nurse notes, history and physical were reviewed and confirmed, see attached forms. The nurse was present throughout the physical exam and consultation Dictated by: Michele Aguayo M.D. on 02/07/2022 at 13:52 Approved by: Michele Aguayo M.D. on 02/07/2022 at 13:59 Normal [facility] VC EXT VENOUS VERENICE LIMITEDon 02-07-2022 VC EXT VENOUS VERENICE LIMITED Patient: NIGHAT NOGUEIRA Exam Date: 02/07/2022 : 1935 Gender:F Ordering : DR TRINI PAULA M.D. Admission #: [id number] Family : Order #: [id number] CLICK HERE TO VIEW EXAM RADIOLOGY REPORT [...] Aguayo M.D. on 02/07/2022 at 13:51 Normal [facility] XR RIBS RT PA Dangelo 2 [...] by: MICHELE AGUAYO Date: 2022-02-05 11:00 Normal [facility] VC COMP CONSULTATIONon 01-03 VC COMP CONSULTATION Patient: NIGHAT NOGUEIRA Exam Date: 01/03/2022 : 1935 Gender:F Ordering : DR ELIUD DA SILVA . Admission #: [id number] Family : Order #: [id number] CLICK HERE TO VIEW EXAM RADIOLOGY REPORT [...] bilateral deep vein thrombus right gastrocnemius and jute bag clipper veins and left peroneal vein. Moderate bilateral [...] MD on 01/03/2022 at 11:54 Normal [facility] VC VENOUS REFLUX VERENICE LMTon 0 12-31-2021 VC VENOUS REFLUX VERENICE LMT Patient: NIGHAT NOGUEIRA Exam Date: 12/31/2021 : 1935 Gender:F Ordering : DR ELIUD DA SILVA . Admission #: [id number] Family : Order #: [id number] CLICK HERE TO VIEW EXAM RADIOLOGY REPORT [...] 1.3 cm. Mid/medial calf varicosity off of jute bag clipper measures 4.6 mm with 0.5s reflux. Mid/medial [...] in area of thrombus. Deep venous reflux. Prizer Hand: Post/prox calf 5.2mm, 1.9s reflux. Tech Note: [...] thrombus involving the right gastrocnemius and two jute bag clipper veins as well as the left peroneal vein 2. Moderate bilateral great saphenous vein venous insufficiency with associated dilatation, right greater than left 3. Moderate bilateral anterior accessory saphenous vein venous insufficiency with associated dilatation 4. 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 Augusto Dukes CREATININEon 12-20-2021 Creatinine [Mass/Vol] 0.66 mg/dL Normal 0.55-1.02 [facility] Comment on above: Performed By: #### Lynne EDWARD CA #### [facility] [address] [place] [address] Dr. Augusto Dukes EGFR-AF CHINESE >60 Normal >=[address] [facility] Comment on above: Performed By: #### Lynne EDWARD CA #### [facility] [address] [place] [address] Dr. Augusto Dukes EGFR-NON AF CHINESE >60 Normal >=60 [facility] Comment on above: Performed By: #### Lynne EDWARD CA #### [facility] [address] [place] [address] Dr. Augusto Dukes XR DEXA BONE DENSITYon [...] TRINI PAULA Date: 2021-12-20 16:55 Normal [facility] INSULINon 11-29-2021 Insulin 14.8 uIU/mL Normal 2.6-24.9 [facility] Comment on above: Performed By: #### I NFLUAB #### [facility] [address] [place] [address] Dr. Augusto Dukes T4 LABCORPon 11-29-2021 T4 [Mass/Vol] 7.8 ug/dL Normal 4.5-12.0 [facility] Comment on above: Performed By: #### T 4LC #### [facility] [address] [place] [address] Dr. Augusto Dukes BNPon 11-28-2021 Natriuretic peptide B (Bld) [Mass/Vol] 168.0 pg/mL Normal <=1,800.0 [facility] Comment on above: Performed By: #### I NFLUAB #### [facility] [address] [place] [address] Dr. Augusto Dukes CBC AUTO DIFFon 11-28-2021 BASO # 0.0 103/ul Normal 0.0-0.1 [facility] Comment on above: Performed By: #### C BC #### [facility] [address] [place] [address] Dr. Augusto Dukes Basophils/100 WBC (Bld) 0.5 % Normal 0.2-2.0 [facility] Comment on above: Performed By: #### C BC #### [facility] [address] [place] [address] Dr. Augusto Dukes EO # 0.0 103/ul Normal 0.0-0.7 [facility] Comment on above: Performed By: #### C BC #### [facility] [address] [place] [address] Dr. Augusto Dukes Eosinophils/100 WBC (Bld) 0.5 % Critically low 0.9-7.0 [facility] Comment on above: Performed By: #### C BC #### [facility] [address] [place] [address] Dr. Augusto Dukes Erythrocyte distribution width (RBC) [Ratio] 13.2 % Normal 11.0-15.0 [facility] Comment on above: Performed By: #### C BC #### [facility] [address] [place] [address] Dr. Augusto Dukes Hematocrit (Bld) [Volume fraction] 40.4 % Normal 36.0-48.0 [facility] Comment on above: Performed By: #### C BC #### [facility] [address] [place] [address] Dr. Augusto Dukes Hemoglobin (Bld) [Mass/Vol] 13.4 g/dL Normal 12.0-16.0 [facility] Comment on above: Performed By: #### C BC #### [facility] [address] [place] [address] Dr. Augusto Dukes IG # 0.01 10e3/ul Normal 0.00-0.03 [facility] Comment on above: Performed By: #### C BC #### [facility] [address] [place] [address] Dr. Augusto Dukes IG % 0.2 % Normal 0.0-0.5 [facility] Comment on above: Performed By: #### C BC #### [facility] [address] [place] [address] Dr. Augusto Dukes LYMPH # 1.0 103/ul Critically low 1.2-3.8 [facility] Comment on above: Performed By: #### C BC #### [facility] [address] [place] [address] Dr. Augusto Dukes Lymphocytes/100 WBC (Bld) 16.8 % Critically low 20.5-60.0 [facility] Comment on above: Performed By: #### C BC #### [facility] [address] [place] [address] Dr. Augusto Dukes MANUAL DIFF REQ NO Normal [facility] Comment on above: Performed By: #### C BC #### [facility] [address] [place] [address] Dr. Augusto Dukes MCH (RBC) [Entitic mass] 32.2 pg Normal 26.7-34.0 [facility] Comment on above: Performed By: #### C BC #### [facility] [address] [place] [address] Dr. Augusto Dukes MCHC (RBC) [Mass/Vol] 33.2 g/dL Normal 29.9-35.2 [facility] Comment on above: Performed By: #### C BC #### [facility] [address] [place] [address] Dr. Augusto Dukes MCV (RBC) [Entitic vol] 97.1 fL Normal 81.0-99.0 [facility] Comment on above: Performed By: #### C BC #### [facility] [address] [place] [address] Dr. Augusto Dukes MONO # 0.7 103/ul Normal 0.3-0.8 [facility] Comment on above: Performed By: #### C BC #### [facility] [address] [place] [address] Dr. Augusto Dukes Monocytes/100 WBC (Bld) 12.2 % Critically high 1.7-12.0 [facility] Comment on above: Performed By: #### C BC #### [facility] [address] [place] [address] Dr. Augusto Dukes NEUT # 4.1 103/ul Normal 1.4-6.5 [facility] Comment on above: Performed By: #### C BC #### [facility] [address] [place] [address] Dr. Augusto Dukes Neutrophils/100 WBC (Bld) 69.8 % Normal 43.0-75.0 [facility] Comment on above: Performed By: #### C BC #### [facility] [address] [place] [address] Dr. Augusto Dukes Platelet mean volume (Bld) [Entitic vol] 10.3 fL Normal 9.5-13.5 [facility] Comment on above: Performed By: #### C BC #### [facility] [address] [place] [address] Dr. Augusto Dukes PLT 201 103/ul Normal 150-450 [facility] Comment on above: Performed By: #### C BC #### [facility] [address] [place] [address] Dr. Augusto Dukes RBC 4.16 106/ul Critically low 4.20-5.40 [facility] Comment on above: Performed By: #### C BC #### [facility] [address] [place] [address] Dr. Augusto Dukes WBC 5.9 103/ul Normal 4.0-11.0 [facility] Comment on above: Performed By: #### C BC #### [facility] [address] [place] [address] Dr. Augusto Dukes CULTURE URINEon 11-28-2021 CULTURE URINE Culture Observations : LIGHT GROWTH OF MIXED GENITAL BRANDON. NO POTENTIAL PATHOGENS SEEN. Normal [facility] Comment on above: Performed By: #### I NFLUAB #### [facility] [address] [place] [address] Dr. Augusto Dukes FREE THYROXINE INDEX T7on FTI 2.57 Normal 1.30-4.50 [facility] Comment on above: Performed By: #### I NFLUAB #### [facility] [address] [place] [address] Dr. Augusto Dukes T3U 33.0 % Normal 30.0-39.0 [facility] Comment on above: Performed By: #### I NFLUAB #### [facility] [address] [place] [address] Dr. Augusto Dukes T4 [Mass/Vol] 7.80 ug/dL Normal 4.80-13.90 [facility] Comment on above: Result Comment: T4 t esting performed by [facility] Performed By: #### I NFLUAB #### [facility] [address] [place] [address] Dr. Augusto Dukes GLYCOHEMOGLOBIN A1Con 2021 ADA RECOMMENDATION SEE BELOW Normal [facility] Comment on above: Result Comment: ADA RECOMMENDED LIMIT 4.0 - 6.0 ADA THERAPEUTIC TARGET < 7.0 ACTION SUGGESTED > 7.0 Performed By: #### A 1C #### [facility] [address] [address] [address] Augusto Dukes Glucose [Mass/Vol] 97 mg/dL Normal [facility] Comment on above: Performed By: #### A 1C #### [facility] [address] [address] [address] Augusto Dukes HbA1c (Bld) [Mass fraction] 5.0 % Normal 4.5-6.2 [facility] Comment on above: Performed By: #### A 1C #### [facility] [address] [place] [address] Dr. Augusto Dukes IRONon 11-28-2021 Iron [Mass/Vol] 59.0 ug/dL Normal 50.0-170.0 [facility] Comment on above: Performed By: #### A 1C #### [facility] [address] [place] [address] Dr. Augusto Dukes LIPID PROFILEon 11-28-2021 CHOL-HDL RATIO NORM SEE BELOW Normal [facility] Comment on above: Result Comment: 3.3 - 4.4 LOW RISK 4.4 - 7.1 AVERAGE RISK 7.1 - 11.0 MODERATE RISK >11.0 HIGH RISK Performed By: #### I NFLUAB #### [facility] [address] [place] [address] Dr. Augusto Dukes Cholesterol [Mass/Vol] 197 mg/dL Normal <=200 [facility] Comment on above: Performed By: #### I NFLUAB #### [facility] [address] [place] [address] Dr. Augusto Dukes Cholesterol in HDL [Mass/Vol] 122 mg/dL Critically high 40-60 [facility] Comment on above: Performed By: #### I NFLUAB #### [facility] [address] [place] [address] Dr. Augusto Dukes Cholesterol in LDL [Mass/Vol] 68.4 mg/dL Normal [facility] Comment on above: Performed By: #### I NFLUAB #### [facility] [address] [place] [address] Dr. Augusto Dukes Cholesterol.total/Cho lesterol in HDL [Mass ratio] 1.6 {ratio} Normal [facility] Comment on above: Performed By: #### I NFLUAB #### [facility] [address] [address] [address] Augusto Dukes HDL NORMAL > or = 60 mg/dl - LO W CARDIOVASCULAR RISK <40 mg/dl - HIGH CARDIOVASCULAR RISK Normal [facility] Comment on above: Performed By: #### I NFLUAB #### [facility] [address] [address] [address] Augusto Dukes LDL CALC NORMAL SEE BELOW Normal [facility] Comment on above: Result Comment: <100 mg/dl OPTIMAL 100 - 129 mg/dl NEAR OR ABOVE OPTIMAL 130 - 159 mg/dl BORDERLINE HIGH 160 - 189 mg/dl HIGH >190 mg/dl VERY HIGH Performed By: #### I NFLUAB #### [facility] [address] [address] [address] Augusto Dukes Triglyceride [Mass/Vol] 33 mg/dL Normal <=150 [facility] Comment on above: Performed By: #### I NFLUAB #### [facility] [address] [address] [address] Augusto Dukes VLDL CALC 6.6 mg/dL Normal [facility] Comment on above: Performed By: #### I NFLUAB #### [facility] [address] [address] [address] Augusto Dukes PROF 14(COMP METB)on 022 Albumin [Mass/Vol] 3.6 g/dL Normal 3.4-5.0 [facility] Comment on above: Performed By: #### I NFLUAB #### [facility] [address] [address] [address] Augusto Dukes Albumin/Globulin [Mass ratio] 1.0 {ratio} Normal [facility] Comment on above: Performed By: #### I NFLUAB #### [facility] [address] [address] [address] Augusto Dukes ALP [Catalytic activity/Vol] 49 U/L Normal 46-116 [facility] Comment on above: Performed By: #### I NFLUAB #### [facility] [address] [address] [address] Augusto Dukes ALT [Catalytic activity/Vol] 37 U/L Normal 14-59 [facility] Comment on above: Performed By: #### I NFLUAB #### [facility] [address] [address] [address] Augusto Dukes Anion gap [Moles/Vol] 9.0 mmol/L Normal [facility] Comment on above: Performed By: #### I NFLUAB #### [facility] [address] [address] [address] Augusto Dukes AST [Catalytic activity/Vol] 26 U/L Normal 15-37 [facility] Comment on above: Performed By: #### I NFLUAB #### [facility] [address] [address] [address] Augusto Dukes Bilirubin [Mass/Vol] 0.4 mg/dL Normal 0.2-1.0 [facility] Comment on above: Performed By: #### I NFLUAB #### [facility] [address] [address] [address] Augusto Dukes Calcium [Mass/Vol] 9.0 mg/dL Normal 8.5-10.1 [facility] Comment on above: Performed By: #### I NFLUAB #### [facility] [address] [address] [address] Augusto uDkes Chloride [Moles/Vol] 97 mmol/L Critically low 98-107 [facility] Comment on above: Performed By: #### I NFLUAB #### [facility] [address] [address] [address] Augusto Dukes CO2 [Moles/Vol] 30.5 mmol/L Normal 21.0-32.[address] [facility] Comment on above: Performed By: #### I NFLUAB #### [facility] [address] [address] [address] Augusto Dukes Creatinine [Mass/Vol] 0.60 mg/dL Normal 0.55-1.02 [facility] Comment on above: Performed By: #### I NFLUAB #### [facility] [address] [address] [address] Augusto Dukes EGFR-AF CHINESE >60 Normal >=[address] [facility] Comment on above: Performed By: #### I NFLUAB #### [facility] [address] [address] [address] Augusto Dukes EGFR-NON AF CHINESE >60 Normal >=60 [facility] Comment on above: Performed By: #### I NFLUAB #### [facility] [address] [address] [address] Augusto Dukes Globulin (S) [Mass/Vol] 3.6 g/dL Normal [facility] Comment on above: Performed By: #### I NFLUAB #### [facility] [address] [address] [address] Augusto Dukes Glucose [Mass/Vol] 98 mg/dL Normal 74-106 [facility] Comment on above: Performed By: #### I NFLUAB #### [facility] [address] [address] [address] Augusto Dukes Potassium [Moles/Vol] 3.5 mmol/L Normal 3.5-5.1 [facility] Comment on above: Performed By: #### I NFLUAB #### [facility] [address] [address] [address] Augusto Dukes Protein [Mass/Vol] 7.2 g/dL Normal 6.4-8.2 [facility] Comment on above: Performed By: #### I NFLUAB #### [facility] [address] [address] [address] Augusto Dukes Sodium [Moles/Vol] 133 mmol/L Critically low 136-[address] [facility] Comment on above: Performed By: #### I NFLUAB #### [facility] [address] [address] [address] Augusto Dukes Urea nitrogen [Mass/Vol] 12.0 mg/dL Normal 7.0-18.0 [facility] Comment on above: Performed By: #### I NFLUAB #### [facility] [address] [place] [address] Dr. Augusto Dukes Urea nitrogen/Creatinine [Mass ratio] 20.0 mg/mg Normal [facility] Comment on above: Performed By: #### I NFLUAB #### [facility] [address] [place] [address] Dr. Augusto Dukes TSHon 11-28-2021 TSH 1.863 uIU/mL Normal 0.358-3.740 [facility] Comment on above: Performed By: #### I NFLUAB #### [facility] [address] [place] [address] Dr. Augusto Dukes TSH RANGE SEE BELOW Normal [facility] Comment on above: Result Comment: <0.3 4 UIU/ml HYPERTHYROID 0.34-5.60 UIU/ml EUTHYROID >5.60 UIU/ml HYPOTHYROID Performed By: #### I NFLUAB #### [facility] [address] [place] [address] Dr. Augusto Dukes UA RANDOM W/MICROSCOPICon BACTERIA NONE SEEN Normal NONE SEEN [facility] Comment on above: Performed By: #### U AMIC #### [facility] [address] [place] [address] Dr. Augusto Dukes Bilirubin Ql (U) Negative Normal NEGATIVE [facility] Comment on above: Performed By: #### U AMIC #### [facility] [address] [place] [address] Dr. Augusto Dukes CAST NONE SEEN Normal NONE SEEN [facility] Comment on above: Performed By: #### U AMIC #### [facility] [address] [place] [address] Dr. Augusto Dukes Clarity (U) CLEAR Normal CLEAR [facility] Comment on above: Performed By: #### U AMIC #### [facility] [address] [place] [address] Dr. Augusto Dukes Color (U) LT. YELLOW Normal YELLOW [facility] Comment on above: Performed By: #### U AMIC #### [facility] [address] [address] [address] Augusto Dukes Crystals LM Nom (Urine sed) NONE SEEN Normal NONE SEEN [facility] Comment on above: Performed By: #### U AMIC #### [facility] [address] [address] [address] Augusto Dukes Epithelial cells LM Ql (Urine sed) FEW Abnormal NONE SEEN /RARE [facility] Comment on above: Performed By: #### U AMIC #### [facility] [address] [address] [address] Augusto Dukes Glucose Ql (U) Negative Normal NEGATIVE [facility] Comment on above: Performed By: #### U AMIC #### [facility] [address] [address] [address] Augusto Dukes Hemoglobin Ql (U) Negative Normal NEGATIVE [facility] Comment on above: Performed By: #### U AMIC #### [facility] [address] [address] [address] Augusto Dukes Ketones Ql (U) Negative Normal NEGATIVE [facility] Comment on above: Performed By: #### U AMIC #### [facility] [address] [address] [address] Augusto Dukes LEUKOCYTES Negative Normal NEGATIVE [facility] Comment on above: Performed By: #### U AMIC #### [facility] [address] [address] [address] Augusto Dukes MUCOUS SMALL Abnormal NONE SEEN [facility] Comment on above: Performed By: #### U AMIC #### [facility] [address] [address] [address] Augusto Dukes Nitrite Ql (U) Negative Normal NEGATIVE [facility] Comment on above: Performed By: #### U AMIC #### [facility] [address] [address] [address] Augusto Dukes pH (U) 7.5 [pH] Normal 5-9 [facility] Comment on above: Performed By: #### U AMIC #### [facility] [address] [address] [address] Augusto Dukes RBC NONE SEEN Abnormal 0-2 [facility] Comment on above: Performed By: #### U AMIC #### [facility] [address] [place] [address] Dr. Augusto Dukes SPEC GRAVITY 1.010 Normal 1.005-<=1.025 [facility] Comment on above: Performed By: #### U AMIC #### [facility] [address] [address] [address] Augusto Dukes UA PROTEIN Negative Normal NEGATIVE/ TRACE [facility] Comment on above: Performed By: #### U AMIC #### [facility] [address] [place] [address] Dr. Augusto Dukes Urobilinogen Qn (U) 0.2 {Lamont'U}/dL Normal 0.2 - 1. 0 [facility] Comment on above: Performed By: #### U AMIC #### [facility] [address] [place] [address] Dr. Augusto Dukes WBC NONE SEEN Normal NONE SEEN [facility] Comment on above: Performed By: #### U AMIC #### [facility] [address] [place] [address] Dr. Augusto Dukes VITAMIN D 25 OHon 11-28-2021 VIT D 25-OH 81.8 ng/mL Normal [facility] Comment on above: Performed By: #### A 1C #### [facility] [address] [place] [address] Dr. Augusto Dukes VIT D RANGES SEE BELOW Normal [facility] Comment on above: Result Comment: <20 ng/mL Vit D deficient 20 - <30 ng/mL Vit D insufficient 30 - 100 ng/mL Vit D sufficient >100 ng/mL Potential Toxicity Performed By: #### A 1C #### [facility] [address] [place] [address] Dr. Augusto Dukes ER URINE PROFILEon 2 Bilirubin Ql (U) Negative Normal NEGATIVE [facility] Comment on above: Performed By: #### E RUR #### [facility] [address] [place] [address] Dr. Augusto Dukes Clarity (U) CLEAR Normal CLEAR [facility] Comment on above: Performed By: #### E RUR #### [facility] [address] [place] [address] Dr. Augusto Dukes Color (U) LT. YELLOW Normal YELLOW [facility] Comment on above: Performed By: #### E RUR #### [facility] [address] [place] [address] Dr. Augusto LUONG A micrscopic examination will be performed if indicated. Normal [facility] Comment on above: Performed By: #### E RUR #### [facility] [address] [place] [address] Dr. Augusto Dukes Glucose Ql (U) Negative Normal NEGATIVE [facility] Comment on above: Performed By: #### E RUR #### [facility] [address] [place] [address] Dr. Augusto Dukes Hemoglobin Ql (U) Negative Normal NEGATIVE [facility] Comment on above: Performed By: #### E RUR #### [facility] [address] [place] [address] Dr. Augusto Dukes Ketones Ql (U) Negative Normal NEGATIVE [facility] Comment on above: Performed By: #### E RUR #### [facility] [address] [place] [address] Dr. Augusto Dukes LEUKOCYTES Negative Normal NEGATIVE [facility] Comment on above: Performed By: #### E RUR #### [facility] [address] [place] [address] Dr. Augusto Dukes Nitrite Ql (U) Negative Normal NEGATIVE [facility] Comment on above: Performed By: #### E RUR #### [facility] [address] [place] [address] Dr. Augusto Dukes pH (U) 6.0 [pH] Normal 5-9 [facility] Comment on above: Performed By: #### E RUR #### [facility] [address] [place] [address] Dr. Augusto Dukes SPEC GRAVITY 1.020 Normal 1.005-<=1.025 [facility] Comment on above: Performed By: #### E RUR #### [facility] [address] [address] [address] Augusto Dukes UA PROTEIN Negative Normal NEGATIVE/ TRACE [facility] Comment on above: Performed By: #### E RUR #### [facility] [address] [address] [address] Augusto Dukes UR MICRO IND NOT INDICATED Normal [facility] Comment on above: Performed By: #### E RUR #### [facility] [address] [address] [address] Augusto Dukes Urobilinogen Qn (U) 0.2 {Lamont'U}/dL Normal 0.2 - 1. 0 [facility] Comment on above: Performed By: #### E RUR #### [facility] [address] [place] [address] Dr. Augusto Dukes Encounters Encounter Date Encounter Type Care Provider Facility Start: 06-09-2023 End: 06-09-2023 ambulatory [facility] Start: 06-09-2023 Encounter for gynecological examination (general) (routine) without abnormal findings [facility] Start: 07-01-2022 End: 07-01-[address] ELIUD DA SILVA Facility:[facility] Start: 06-10-2022 End: 06-10-[address] ELIUD DA SILVA Facility:[facility] Start: 05-21-2022 End: 05-22-[address] LEIUD DA SILVA Facility:[facility] Start: 03-15-[address] [...] Facility:[facility] Payers Date Payer Category Payer Self-pay [id number] 1958 Unknown [id number] 1935 Unknown [id number] 2.16.84 [id number] 1935 Unknown [id number] 2.16.84 [id number] 1936 Unknown [id number] 2.16.84 [id number] 1936 Unknown [id number] 2..84 [id number] 1936 Unknown [id number] 2.16.84 [id number] 1936 Unknown [id number] 2.16.84 [id number] 1936 Unknown [id number] 2.16.84 [id number] 1936 Unknown [id number] 2.16.84 [id number] 1936 Unknown [id number] 2.16.84 [id number] 1936 Unknown [id number] 2.16.84 [id number] 1936 Unknown [id number] 2.16.84 [id number] 1936 Unknown [id number] 2.16.84 [id number] 1936 Unknown [id number] 2.16.840 .[id number] Clinical Note 05-22-2022 Note Date & Type [...] by: MICHELE AGUAYO Date: 2022-05-22 08:38 [facility] Clinical Note 05-22-2022 Note Date & [...] authenticated by: MICHELE AGUAYO Date: 2022-05-22 08:38 [facility] Summary Purpose Family History No Family History Records FoundNo Family History Records Found Advance Directives No Advanced Directives Records FoundNo Advanced Directives Records Found Additional Source Comments INFORMATION SOURCE (unrecogn ized section and content) DATE CREATED AUTHOR 07/02/2022 [facility] DATE CREATED AUTHOR AUTHOR'S ORGANIZ ATION 06/13/2023 [...] BE BASED ON THE PRIMARY CLINICAL RECORDS. [facility]. provides no warranty or guarantee of the accuracy or completeness of information in this document.
--- NOTE | 2024-03-20 15:57 | PC.NURSE ---
Reports pain to mid back after fall from chair. No redness, bruising or any break in skin noted.
--- NOTE | 2024-03-20 16:10 | XR_ITS ---
The [address] [address] Patient Name: NIGHAT NOGUEIRA MRN: [id number] date: 1935 Sex: F Assigned Patient Location: ER Current Patient Location: ER Accession/Order Number: [id number] Exam Date: 03/20/2024 16:20 Report Date: 03/20/2024 17:37 At the request of: EDWIN NEAL Procedure: XR ribs BI 3V Ribs EXAM: XR ribs BI 3V HISTORY: pain COMPARISON: None. TECHNIQUE: Chest, single view. Bilateral rib series with 6 images obtained. FINDINGS: Lungs/pleura: No consolidation, effusion, or pneumothorax. Bones: No acute abnormality identified. XR/XR ribs BI 3V IMPRESSION: No acute displaced rib fracture. Electronically authenticated by: ERYN TIDWELL Date: 03/20/2024 17:37
--- NOTE | 2024-03-20 16:57 | ED_ITS ---
HPI HPI - Back Pain/Injury General Chief Complaint: Back Pain/Injury Stated Complaint: BACK INJURY D/T FALL Time Seen by Provider: 03/20/24 16:00 Source: patient Mode of arrival: walk-in Limitations: no limitations History of Present Illness HPI Narrative: Patient is 88 years old who is coming to the ER with a back pain that started after she slid while standing up backward hitting the chair behind her, she mentioned that she have sleep apnea and she dozed off while standing up, she denies any head trauma or loss of consciousness mentioned that she have some scrapes on her both shoulders because that she fell in between 2 tables The patient walked in here with no difficulty Related Data Home Medications ?Medication ?Instructions ?Recorded ?Confirmed apixaban 2.5 mg tablet (Eliquis) 2.5 mg PO Q12H 01/18/23 03/20/24 Allergies Allergy/AdvReac Type Severity Reaction Status Date / Time cyproheptadine Allergy Unknown Unknown Verified 03/20/24 17:52 levofloxacin Allergy Unknown Unknown Verified 03/20/24 17:52 Opioid HPI Opioid Management Most Recent Opioid Data: No Data to Display Review of Systems ROS Status of ROS 10 or more systems reviewed and unremark able except as noted in history and below PFSH PFSH Social History Little interest or pleasure in doing things: not at all Feeling down, depressed, or hopeless: not at all Exam Narrative Exam Narrative: Nurses notes and vital signs reviewed and patient is not hypoxic. General: Well-appearing and in no apparent distress. Skin: Warm, dry, no pallor noted. No rash. Head: Normocephalic, atraumatic. Neck: Supple, non-tender. Eye: Pupils are equal, round and EOMI. No scleral icterus. Ears, Nose, Mouth, and Throat: TM are clear, no nasal mucosal hypertrophy. Oral mucosa is moist, no posterior oropharynx erythema, uvula is mid-line Cardiovascular: Regular Rate and Rhythm without murmur, gallop or rub. Respiratory: No accessory muscle use or respiratory distress. Lungs are clear to auscultation, no wheezing, rales or rhonchi Chest Wall: The patient did point to a tenderness at her scapular area bilaterally that is subjectively induced with palpation otherwise no other spots of tenderness Back: No midline thoracic or lumbar vertebral tenderness. No CVA tenderness Musculoskeletal: normal ROM, no calf or popliteal tenderness, no lower extremity edema/swelling GI: Abdomen is soft, non-distended. Normal bowel sounds. No masses appreciated. No tenderness to palpation. No rebound, guarding, or rigidity noted. Neurological: A&O x4. No cranial nerve dysfunction observed. No truncal ataxia. Moves all extremities. Sensation intact. Psychiatric: Cooperative and interactive. Normal mood and affect. Constitutional Vital Signs, click to edit/add: Last Vital Signs Temp 97.6 F 03/20/24 15:40 Pulse 96 H 03/20/24 15:40 Resp 16 03/20/24 15:40 BP 162/94 H 03/20/24 15:40 Pulse Ox 97 03/20/24 15:40 O2 Del Method Room Air 03/20/24 15:40 Course Vital Signs Vital signs: Vital Signs Temperature 97.6 F 03/20/24 15:40 Pulse Rate 96 H 03/20/24 15:40 Respiratory Rate 16 03/20/24 15:40 Blood Pressure 162/94 H 03/20/24 15:40 Pulse Oximetry 97 03/20/24 15:40 Oxygen Delivery Method Room Air 03/20/24 15:40 Temperature 97.6 F 03/20/24 15:40 Pulse Rate 96 H 03/20/24 15:40 Respiratory Rate 16 03/20/24 15:40 Blood Pressure 162/94 H 03/20/24 15:40 Pulse Oximetry 97 03/20/24 15:40 Oxygen Delivery Method Room Air 03/20/24 15:40 MDM - Back Pain/Injury MDM Narrative Medical decision making narrative: X-ray of the patient's ribs bilaterally showed no acute pathology Patient was treated in the ER with Percocet she does not have any tenderness on clinical exam that shows possible fracture The patient will continue Tylenol at home The patient is to follow up with primary care physician in next 2-3 days or to return to the emergency department should any of the signs or symptoms worsen or new symptoms develop. The patient agrees with the following Diagnosis and Treatment plan and the patient will be discharged home. Discharge Plan Discharge Chief Complaint: Back Pain/Injury Clinical Impression: Chest wall contusion Patient Disposition: Home, Self-Care Time of Disposition Decision: 17:57 Condition: Good Prescriptions / Home Meds: No Action Eliquis 2.5 mg tablet 2.5 mg PO Q12H Print Language: Guyanese Instructions: Contusion in Adults (ED) Referrals: Jamal Da Silva MD [Primary Care Provider] - 1 week
[2024-03-20] MEDS: OXYCODONE HCL/ACETAMINOPHEN 5MG/325MG 1 TAB PO (17:53)
== END 2024-03-20 18:04 | disposition home or self-care (01) ==
PROVIDERS: Emergency Provider Emergency Medicine; PCP Family Medicine
DX: S20.219A Contusion of unspecified front wall of thorax, initial encounter (principal); W19.XXXA Unspecified fall, initial encounter
CPT/HCPCS: 71110; 99283

== ENCOUNTER 2024-03-31 14:20 | Outpatient (OUT) | payer MEDICARE, SELFPAY ==
--- NOTE | 2024-03-31 14:38 | US_ITS ---
The [id number] Patient Name: NIGHAT NOGUEIRA MRN: [id number] date: 1935 Sex: F Assigned Patient Location: US Current Patient Location: US Accession/Order Number: [id number] Exam Date: 03/31/2024 14:40 Report Date: 03/31/2024 15:20 At the request of: ELIUD SHAHID Procedure: US venous doppler UE LT EXAMINATION: US venous doppler UE LT HISTORY: Arm Edema ; posterior left arm bruising after falling COMPARISON: No relevant comparison available. FINDINGS: REGION: Left upper extremity THROMBI: None. COMPRESSIBILITY: Normal compressibility. FLOW: Normal waveform and antegrade flow between 5 and 20 cm/s. OTHER: None. US/US venous doppler UE LT IMPRESSION: 1. No deep vein thrombus within the left upper extremity. Electronically authenticated by: VALERIE REED Date: 03/31/2024 15:20
== END 2024-03-31 14:21 | disposition home or self-care (01) ==
LOC: US 14:21
PROVIDERS: PCP Family Medicine; Visit Provider Family Medicine
DX: R60.0 Localized edema (principal)
CPT/HCPCS: 93971

== ENCOUNTER 2024-04-13 14:27 | Outpatient (RCR) | payer MEDICARE, SELFPAY | END 2024-06-22 23:59 | disposition home or self-care (01) | LOC: PT 14:27 | PROVIDERS: PCP Family Medicine; Visit Provider Family Medicine | DX: R60.0 Localized edema (principal) | CPT/HCPCS: 97110; 97112; 97116; 97161; 97530 ==

== ENCOUNTER 2024-07-22 14:56 | Outpatient (OUT) | payer MEDICARE, SELFPAY ==
--- NOTE | 2024-07-22 15:06 | US_ITS ---
The [address] [address] Patient Name: NIGHAT NOGUEIRA MRN: [id number] date: 1935 Sex: F Assigned Patient Location: US Current Patient Location: US Accession/Order Number: [id number] Exam Date: 07/22/2024 15:08 Report Date: 07/22/2024 16:23 At the request of: JANNETTE BREWER Procedure: US venous doppler LE BI EXAMINATION: US venous doppler LE BI HISTORY: Edema COMPARISON: Ultrasound venous Doppler lower extremity bilateral to 124 FINDINGS: REGION: Bilateral lower extremities THROMBI: None. COMPRESSIBILITY: Normal compressibility. FLOW: Normal waveform and antegrade flow between 5 and 20 cm/s. OTHER: 5.7 x 4.9 x 2.1 cm fluid collection within right popliteal fossa suspected to represent a Sun cyst; increased since prior study. US/US venous doppler LE BI IMPRESSION: 1. No deep vein thrombus within the right or left lower extremity. 2. Right popliteal fossa Sun's cyst. Electronically authenticated by: VALERIE REED Date: 07/22/2024 16:23
--- OUTSIDE RECORDS SUMMARY | 2024-07-22 15:06 | XMS_ITS | CCD ---
Author Organization [facility] CliniSymn Care Team Providers Care Passenger Tire Builder Name Role Phone ZEHRA, DR KLINE Consulting [...] KAREEM Whitt Attending Unavailabl e REINECK, DR KAREME Whitt Admitting Unavailabl e HOJacki, DR KLINE [...] Facility (1 source) Cetirizine Drug Allergy [facility] Repository (1 source) diphenhydrAMINE Drug Allergy 6 [facility]ository (1 source) gamma-Aminobutyrate Drug Allergy [facility] Repository (1 source) Ketanserin Drug Allergy [facility] Repository (2 sources) levoFLOXacin; Translations: [LEVOFLOXACIN] Drug Allergy 3 [facility] Repository (1 source) Cyproheptadine; Translations: [CYPROHEPTADINE HCL] [...] Onset: 2 Episodic Other aftercare (1 source) termination clerk (current) use of aspirin; Translations: [[facility] CURRENT USE OF ASPIRIN] Onset: 2 Episodic Other aftercare (1 source) Other prison (current) drug therapy; Translations: [OTH [facility] CURRENT DRUG THERAPY] Onset: 2 Episodic Other [...] Calcium [Mass/Vol] 8.9 mg/dL Normal 8.5-10.1 [facility] Comment on above: Performed By: #### E RUR #### [facility] [address] [address] [address] Augusto Dukes CREATININEon 07-01-2022 Creatinine [Mass/Vol] 0.99 mg/dL Normal 0.55-1.02 [facility] Comment on above: Performed By: #### E RUR #### [facility] [address] [address] [address] Augusto Dukes EGFR-AF CITIZEN [place] >60 Normal >=60 [facility] Comment on above: Performed By: #### E RUR #### [facility] [address] [address] [address] Augusto Dukes EGFR-NON AF CITIZEN OF [place] 53 mL/min/1.73m2 Critically low >=60 [facility] Comment on above: Performed By: #### E RUR #### [facility] [address] [place] [address] Dr. Augusto Dukes MG MAMM SCREEN 3D VERENICE CADon 07-01-2022 MG MAMM SCREEN 3D VERENICE CAD Patient: NIGHAT NOGUEIRAMalissa Exam Date: 07/01/2022 : 1935 Gender:F Ordering : DR ELIUD DA SILVA . Admission #: [id number] Family : Order #: [id number] CLICK HERE TO VIEW EXAM RADIOLOGY REPORT [...] breast cancer at age 61. LOCATION: [facility] BREAST COMPOSITION: Scattered areas fibroglandular density. FINDINGS: [...] M.D. on 07/01/2022 at 15:58 Normal [facility] Covid-19 PCR (CVDTB)on 05-23 SARS-CoV-2 (COVID-19) RNA ADWOA+probe Ql (Unsp spec) Not detected Normal NOT DETECTED [facility] Comment on above: Result Comment: This test is not yet approved or cleared by the [place] FDA. When there are no FDA-approved or cleared tests available, and other criteria are met, FDA can make tests available under an emergency access mechanism called an Emergency Use Authorization (EUA). The EUA for this test is supported by the [place] of Health and Human Service's (HHS's) declaration [...] SARS-CoV-2. Performed By: #### I NFLUAB #### [facility] [address] [place] [address] Dr. Augusto Dukes INFLUENZA A AND B [facility] Normal [facility] Comment on above: Result Comment: Nega tive for Flu A protein angiten. Infection due to Flu A cannot be ruled out. Flu A angiten in the sample may be below the detection limit of the test. Performed By: #### I NFLUAB #### [facility] [address] [place] [address] Dr. Augusto Dukes INFLUBNEG SEE BELOW Normal [facility] Comment on above: Result Comment: Nega tive for Flu B protein antigen. Infection due to Flu B cannot be ruled out. Flu B antigen in the sample may be below the detection limit of the test. Performed By: #### I NFLUAB #### [facility] [address] [place] [address] Dr. Augusto Dukes INFLUENZA A AG Negative Normal NEGATIVE SEE COMMENT [facility] Comment on above: Performed By: #### I NFLUAB #### [facility] [address] [place] [address] Dr. Augusto Dukes INFLUENZA B AG Negative Normal NEGATIVE SEE COMMENT [facility] Comment on above: Performed By: #### I NFLUAB #### [facility] [address] [place] [address] Dr. Augusto Dukes INTERNAL CONTROLS Within Normal Limits Normal Wi thin Normal Limits [facility] Comment on above: Performed By: #### I NFLUAB #### [facility] [address] [place] [address] Dr. Augusto uDkes CULTURE URINEon 03-06-2022 CULTURE URINE Culture Observations : LIGHT GROWTH OF MIXED GENITAL BRANDON. NO POTENTIAL PATHOGENS SEEN. Normal [facility] Comment on above: Performed By: #### I NFLUAB #### [facility] [address] [address] [address] Augusto Dukes ER URINE PROFILEon 2 Bilirubin Ql (U) Negative Normal NEGATIVE [facility] Comment on above: Performed By: #### U MICRO, ERUR #### [facility] [address] [address] [address] Augusto Dukes Clarity (U) CLEAR Normal CLEAR [facility] Comment on above: Performed By: #### U MICRO, ERUR #### [facility] [address] [place] [address] Dr. Augusto Dukes Color (U) YELLOW Normal YELLOW [facility] Comment on above: Performed By: #### U MICRO, ERUR #### [facility] [address] [place] [address] Dr. Augusto Dukes ERUAHD A micrscopic examination will be performed if indicated. Normal [facility] Comment on above: Performed By: #### U MICRO, ERUR #### [facility] [address] [place] [address] Dr. Augusto Dukes Glucose Ql (U) Negative Normal NEGATIVE [facility] Comment on above: Performed By: #### U MICRO, ERUR #### [facility] [address] [address] [address] Augusto Dukes Hemoglobin Ql (U) LARGE Abnormal NEGATIVE [facility] Comment on above: Performed By: #### U MICRO, ERUR #### [facility] [address] [address] [address] Augusto Dukes Ketones Ql (U) Negative Normal NEGATIVE [facility] Comment on above: Performed By: #### U MICRO, ERUR #### [facility] [address] [place] [address] Dr. Augusto Dukes LEUKOCYTES SMALL Abnormal NEGATIVE [facility] Comment on above: Performed By: #### U MICRO, ERUR #### [facility] [address] [place] [address] Dr. Augusto Dukes Nitrite Ql (U) Negative Normal NEGATIVE [facility] Comment on above: Performed By: #### U MICRO, ERUR #### [facility] [address] [place] [address] Dr. Augusto Dukes pH (U) 8.0 [pH] Normal 5-9 [facility] Comment on above: Performed By: #### U MICRO, ERUR #### [facility] [address] [place] [address] Dr. Augusto Dukes SPEC GRAVITY 1.015 Normal 1.005-<=1.025 [facility] Comment on above: Performed By: #### U MICRO, ERUR #### [facility] [address] [place] [address] Dr. Augusto Dukes UA PROTEIN TRACE Normal NEGATIVE/ TRACE [facility] Comment on above: Performed By: #### U MICRO, ERUR #### [facility] [address] [place] [address] Dr. Augusto Dukes UR MICRO IND INDICATED Normal [facility] Comment on above: Performed By: #### U MICRO, ERUR #### [facility] [address] [place] [address] Dr. Augusto Dukes Urobilinogen Qn (U) 0.2 {Lamont'U}/dL Normal 0.2 - 1. 0 [facility] Comment on above: Performed By: #### U MICRO, ERUR #### [facility] [address] [place] [address] Dr. Augusto Dukes URINE MICROSCOPIC ONLYon AMORPHOUS CRYSTALS FEW Normal [facility] Comment on above: Performed By: #### U MICRO, ERUR #### [facility] [address] [place] [address] Dr. Augusto Dukes BACTERIA SMALL Abnormal NONE SEEN [facility] Comment on above: Performed By: #### U MICRO, ERUR #### [facility] [address] [place] [address] Dr. Augusto Dukes Bacteria identified Cx Nom (U) INDICATED Normal [facility] Comment on above: Performed By: #### U MICRO, ERUR #### [facility] [address] [place] [address] Dr. Augusto Dukes CAST NONE SEEN Normal NONE SEEN [facility] Comment on above: Performed By: #### U MICRO, ERUR #### [facility] [address] [place] [address] Dr. Augusto Dukes Crystals LM Nom (Urine sed) SEEN Abnormal NONE SEEN [facility] Comment on above: Performed By: #### U MICRO, ERUR #### [facility] [address] [place] [address] Dr. Augusto Dukes Epithelial cells LM Ql (Urine sed) RARE Normal NONE SEEN /RARE [facility] Comment on above: Performed By: #### U MICRO, ERUR #### [facility] [address] [place] [address] Dr. Augusto Dukes MUCOUS NONE SEEN Normal NONE SEEN [facility] Comment on above: Performed By: #### U MICRO, ERUR #### [facility] [address] [place] [address] Dr. Augusto Dukes RBC 20-50 Abnormal 0-2 [facility] Comment on above: Performed By: #### U MICRO, ERUR #### [facility] [address] [place] [address] Dr. Augusto Dukes WBC 10-20 Abnormal NONE SEEN [facility] Comment on above: Performed By: #### U MICRO, ERUR #### [facility] [address] [place] [address] Dr. Augusto Dukes VC CONSULT FOLLOWUPon 2021 VC CONSULT FOLLOWUP Patient: NIGHAT NOGUEIRA Exam Date: 02/07/2022 : 1935 Gender:F Ordering : DR TRINI PAULA M.D. Admission #: [id number] Family : Order #: [id number] CLICK HERE TO VIEW EXAM RADIOLOGY REPORT [...] Aguayo M.D. on 02/07/2022 at 13:59 Normal [facility] VC EXT VENOUS VERENICE LIMITEDon 02-07-2022 VC EXT VENOUS VERENICE LIMITED Patient: NIGHAT NOGUEIRA Exam Date: 02/07/2022 : 1935 Gender:F Ordering : DR TRINI PAULA M.D. Admission #: [id number] Family : Order #: [id number] CLICK HERE TO VIEW EXAM RADIOLOGY REPORT [...] Aguayo M.D. on 02/07/2022 at 13:51 Normal [facility] XR RIBS RT PA Dangelo 2 [...] by: MICHELE AGUAYO Date: 2022-02-05 11:00 Normal [facility] VC COMP CONSULTATIONon 01-03 VC COMP CONSULTATION Patient: NIGHAT NOGUEIRA Exam Date: 01/03/2022 : 1935 Gender:F Ordering : DR ELIUD DA SILVA . Admission #: [id number] Family : Order #: [id number] CLICK HERE TO VIEW EXAM RADIOLOGY REPORT [...] bilateral deep vein thrombus right gastrocnemius and user interface engineer veins and left peroneal vein. Moderate bilateral [...] MD on 01/03/2022 at 11:54 Normal [facility] VC VENOUS REFLUX VERENICE LMTon 0 12-31-2021 VC VENOUS REFLUX VERENICE LMT Patient: NIGHAT NOGUEIRA Exam Date: 12/31/2021 : 1935 Gender:F Ordering : DR ELIUD DA SILVA . Admission #: [id number] Family : Order #: [id number] CLICK HERE TO VIEW EXAM RADIOLOGY REPORT [...] 1.3 cm. Mid/medial calf varicosity off of user interface engineer measures 4.6 mm with 0.5s reflux. Mid/medial [...] in area of thrombus. Deep venous reflux. Civil Estimator: Post/prox calf 5.2mm, 1.9s reflux. Tech Note: [...] thrombus involving the right gastrocnemius and two user interface engineer veins as well as the left peroneal vein 2. Moderate bilateral great saphenous vein venous insufficiency with associated dilatation, right greater than left 3. Moderate bilateral anterior accessory saphenous vein venous insufficiency with associated dilatation 4. 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 Augusto Dukes CREATININEon 12-20-2021 Creatinine [Mass/Vol] 0.66 mg/dL Normal 0.55-1.02 [facility] Comment on above: Performed By: #### Lynne EDWARD CA #### [facility] [address] [place] [address] Dr. Augusto Dukes EGFR-AF CITIZEN [place] >60 Normal >=60 [facility] Comment on above: Performed By: #### Lynne EDWARD CA #### [facility] [address] [place] [address] Dr. Augusto Dukes EGFR-NON AF CITIZEN OF [place] >60 Normal >=60 [facility] Comment on above: Performed By: #### Lynne EDWARD CA #### [facility] [address] [place] [address] Dr. Augusto Dukes XR DEXA BONE DENSITYon [...] TRINI PAULA Date: 2021-12-20 16:55 Normal [facility] INSULINon 11-29-2021 Insulin 14.8 uIU/mL Normal 2.6-24.9 [facility] Comment on above: Performed By: #### I NFLUAB #### [facility] [address] [place] [address] Dr. Augusto Dukes T4 LABCORPon 11-29-2021 T4 [Mass/Vol] 7.8 ug/dL Normal 4.5-12.0 [facility] Comment on above: Performed By: #### T 4LC #### [facility] [address] [place] [address] Dr. Augusto Dukes BNPon 11-28-2021 Natriuretic peptide B (Bld) [Mass/Vol] 168.0 pg/mL Normal <=1,800.0 [facility] Comment on above: Performed By: #### I NFLUAB #### [facility] [address] [place] [address] Dr. Augusto Dukes CBC AUTO DIFFon 11-28-2021 BASO # 0.0 103/ul Normal 0.0-0.1 [facility] Comment on above: Performed By: #### C BC #### [facility] [address] [place] [address] Dr. Augusto Dukes Basophils/100 WBC (Bld) 0.5 % Normal 0.2-2.0 [facility] Comment on above: Performed By: #### C BC #### [facility] [address] [place] [address] Dr. Augusto Dukes EO # 0.0 103/ul Normal 0.0-0.7 [facility] Comment on above: Performed By: #### C BC #### [facility] [address] [place] [address] Dr. Augusto Dukes Eosinophils/100 WBC (Bld) 0.5 % Critically low 0.9-7.0 [facility] Comment on above: Performed By: #### C BC #### [facility] [address] [place] [address] Dr. Augusto Dukes Erythrocyte distribution width (RBC) [Ratio] 13.2 % Normal 11.0-15.0 [facility] Comment on above: Performed By: #### C BC #### [facility] [address] [place] [address] Dr. Augusto Dukes Hematocrit (Bld) [Volume fraction] 40.4 % Normal 36.0-48.0 [facility] Comment on above: Performed By: #### C BC #### [facility] [address] [place] [address] Dr. Augusto Dukes Hemoglobin (Bld) [Mass/Vol] 13.4 g/dL Normal 12.0-16.0 [facility] Comment on above: Performed By: #### C BC #### [facility] [address] [place] [address] Dr. Augusto Dukes IG # 0.01 10e3/ul Normal 0.00-0.03 [facility] Comment on above: Performed By: #### C BC #### [facility] [address] [place] [address] Dr. Augusto Dukes IG % 0.2 % Normal 0.0-0.5 [facility] Comment on above: Performed By: #### C BC #### [facility] [address] [place] [address] Dr. Augusto Dukes LYMPH # 1.0 103/ul Critically low 1.2-3.8 [facility] Comment on above: Performed By: #### C BC #### [facility] [address] [place] [address] Dr. Augusto Dukes Lymphocytes/100 WBC (Bld) 16.8 % Critically low 20.5-60.0 [facility] Comment on above: Performed By: #### C BC #### [facility] [address] [place] [address] Dr. Augusto Dukes MANUAL DIFF REQ NO Normal [facility] Comment on above: Performed By: #### C BC #### [facility] [address] [place] [address] Dr. Augusto Dukes MCH (RBC) [Entitic mass] 32.2 pg Normal 26.7-34.0 [facility] Comment on above: Performed By: #### C BC #### [facility] [address] [place] [address] Dr. Augusto Dukes MCHC (RBC) [Mass/Vol] 33.2 g/dL Normal 29.9-35.2 [facility] Comment on above: Performed By: #### C BC #### [facility] [address] [place] [address] Dr. Augusto Dukes MCV (RBC) [Entitic vol] 97.1 fL Normal 81.0-99.0 [facility] Comment on above: Performed By: #### C BC #### [facility] [address] [place] [address] Dr. Augusto Dukes MONO # 0.7 103/ul Normal 0.3-0.8 [facility] Comment on above: Performed By: #### C BC #### [facility] [address] [place] [address] Dr. Augusto Dukes Monocytes/100 WBC (Bld) 12.2 % Critically high 1.7-12.0 [facility] Comment on above: Performed By: #### C BC #### [facility] [address] [place] [address] Dr. Augusto Dukes NEUT # 4.1 103/ul Normal 1.4-6.5 [facility] Comment on above: Performed By: #### C BC #### [facility] [address] [place] [address] Dr. Augusto Dukes Neutrophils/100 WBC (Bld) 69.8 % Normal 43.0-75.0 [facility] Comment on above: Performed By: #### C BC #### [facility] [address] [place] [address] Dr. Augusto Dukes Platelet mean volume (Bld) [Entitic vol] 10.3 fL Normal 9.5-13.5 [facility] Comment on above: Performed By: #### C BC #### [facility] [address] [place] [address] Dr. Augusto Dukes PLT 201 103/ul Normal 150-450 [facility] Comment on above: Performed By: #### C BC #### [facility] [address] [place] [address] Dr. Augusto Dukes RBC 4.16 106/ul Critically low 4.20-5.40 [facility] Comment on above: Performed By: #### C BC #### [facility] [address] [place] [address] Dr. Augusto Dukes WBC 5.9 103/ul Normal 4.0-11.0 [facility] Comment on above: Performed By: #### C BC #### [facility] [address] [place] [address] Dr. Augusto Dukes CULTURE URINEon 11-28-2021 CULTURE URINE Culture Observations : LIGHT GROWTH OF MIXED GENITAL BRANDON. NO POTENTIAL PATHOGENS SEEN. Normal [facility] Comment on above: Performed By: #### I NFLUAB #### [facility] [address] [place] [address] Dr. Augusto Dukes FREE THYROXINE INDEX T7on FTI 2.57 Normal 1.30-4.50 [facility] Comment on above: Performed By: #### I NFLUAB #### [facility] [address] [place] [address] Dr. uAgusto Dukes T3U 33.0 % Normal 30.0-39.0 [facility] Comment on above: Performed By: #### I NFLUAB #### [facility] [address] [place] [address] Dr. Augusto Dukes T4 [Mass/Vol] 7.80 ug/dL Normal 4.80-13.90 [facility] Comment on above: Result Comment: T4 t esting performed by [facility] Performed By: #### I NFLUAB #### [facility] [address] [place] [address] Dr. Augusto Dukes GLYCOHEMOGLOBIN A1Con 2021 ADA RECOMMENDATION SEE BELOW Normal [facility] Comment on above: Result Comment: ADA RECOMMENDED LIMIT 4.0 - 6.0 ADA THERAPEUTIC TARGET < 7.0 ACTION SUGGESTED > 7.0 Performed By: #### A 1C #### [facility] [address] [address] [address] Augusto Dukes Glucose [Mass/Vol] 97 mg/dL Normal [facility] Comment on above: Performed By: #### A 1C #### [facility] [address] [address] [address] Augusto Dukes HbA1c (Bld) [Mass fraction] 5.0 % Normal 4.5-6.2 [facility] Comment on above: Performed By: #### A 1C #### [facility] [address] [place] [address] Dr. Augusto Dukes IRONon 11-28-2021 Iron [Mass/Vol] 59.0 ug/dL Normal 50.0-170.0 [facility] Comment on above: Performed By: #### A 1C #### [facility] [address] [place] [address] Dr. Augusto Dukes LIPID PROFILEon 11-28-2021 CHOL-HDL RATIO NORM SEE BELOW Normal [facility] Comment on above: Result Comment: 3.3 - 4.4 LOW RISK 4.4 - 7.1 AVERAGE RISK 7.1 - 11.0 MODERATE RISK >11.0 HIGH RISK Performed By: #### I NFLUAB #### [facility] [address] [place] [address] Dr. Augusto Dukes Cholesterol [Mass/Vol] 197 mg/dL Normal <=200 [facility] Comment on above: Performed By: #### I NFLUAB #### [facility] [address] [place] [address] Dr. Augusto Dukes Cholesterol in HDL [Mass/Vol] 122 mg/dL Critically high 40-60 [facility] Comment on above: Performed By: #### I NFLUAB #### [facility] [address] [place] [address] Dr. Augusto Dukes Cholesterol in LDL [Mass/Vol] 68.4 mg/dL Normal [facility] Comment on above: Performed By: #### I NFLUAB #### [facility] [address] [place] [address] Dr. Augusto Dukes Cholesterol.total/Cho lesterol in HDL [Mass ratio] 1.6 {ratio} Normal [facility] Comment on above: Performed By: #### I NFLUAB #### [facility] [address] [address] [address] Augusto Dukes HDL NORMAL > or = 60 mg/dl - LO W CARDIOVASCULAR RISK <40 mg/dl - HIGH CARDIOVASCULAR RISK Normal [facility] Comment on above: Performed By: #### I NFLUAB #### [facility] [address] [address] [address] Augusto Dukes LDL CALC NORMAL SEE BELOW Normal [facility] Comment on above: Result Comment: <100 mg/dl OPTIMAL 100 - 129 mg/dl NEAR OR ABOVE OPTIMAL 130 - 159 mg/dl BORDERLINE HIGH 160 - 189 mg/dl HIGH >190 mg/dl VERY HIGH Performed By: #### I NFLUAB #### [facility] [address] [address] [address] Augusto Dukes Triglyceride [Mass/Vol] 33 mg/dL Normal <=150 [facility] Comment on above: Performed By: #### I NFLUAB #### [facility] [address] [address] [address] Augusto Dukes VLDL CALC 6.6 mg/dL Normal [facility] Comment on above: Performed By: #### I NFLUAB #### [facility] [address] [address] [address] Augusto Dukes PROF 14(COMP METB)on 022 Albumin [Mass/Vol] 3.6 g/dL Normal 3.4-5.0 [facility] Comment on above: Performed By: #### I NFLUAB #### [facility] [address] [address] [address] Augusto Dukes Albumin/Globulin [Mass ratio] 1.0 {ratio} Normal [facility] Comment on above: Performed By: #### I NFLUAB #### [facility] [address] [address] [address] Augusto Dukes ALP [Catalytic activity/Vol] 49 U/L Normal 46-116 [facility] Comment on above: Performed By: #### I NFLUAB #### [facility] [address] [address] [address] Augusto Dukes ALT [Catalytic activity/Vol] 37 U/L Normal 14-59 [facility] Comment on above: Performed By: #### I NFLUAB #### [facility] [address] [address] [address] Augusto Dukes Anion gap [Moles/Vol] 9.0 mmol/L Normal [facility] Comment on above: Performed By: #### I NFLUAB #### [facility] [address] [address] [address] Augusto Dukes AST [Catalytic activity/Vol] 26 U/L Normal 15-37 [facility] Comment on above: Performed By: #### I NFLUAB #### [facility] [address] [address] [address] Augusto Dukes Bilirubin [Mass/Vol] 0.4 mg/dL Normal 0.2-1.0 [facility] Comment on above: Performed By: #### I NFLUAB #### [facility] [address] [address] [address] Augusto Dukes Calcium [Mass/Vol] 9.0 mg/dL Normal 8.5-10.1 [facility] [facility] Comment on above: Performed By: #### I NFLUAB #### [facility] [address] [address] [address] Augusto Dukes Chloride [Moles/Vol] 97 mmol/L Critically low 98-107 [facility] Comment on above: Performed By: #### I NFLUAB #### [facility] [address] [address] [address] Augusto Dukes CO2 [Moles/Vol] 30.5 mmol/L Normal 21.0-32.0 [facility] Comment on above: Performed By: #### I NFLUAB #### [facility] [address] [address] [address] Augusto Dukes Creatinine [Mass/Vol] 0.60 mg/dL Normal 0.55-1.02 [facility] Comment on above: Performed By: #### I NFLUAB #### [facility] [address] [address] [address] Augusto Dukes EGFR-AF CITIZEN [place] >60 Normal >=60 [facility] Comment on above: Performed By: #### I NFLUAB #### [facility] [address] [address] [address] Augusto Dukes EGFR-NON AF CITIZEN OF [place] >60 Normal >=60 [facility] Comment on above: Performed By: #### I NFLUAB #### [facility] [address] [address] [address] Augusto Dukes Globulin (S) [Mass/Vol] 3.6 g/dL Normal [facility] Comment on above: Performed By: #### I NFLUAB #### [facility] [address] [address] [address] Augusto Dukes Glucose [Mass/Vol] 98 mg/dL Normal 74-106 [facility] Comment on above: Performed By: #### I NFLUAB #### [facility] [address] [address] [address] Augusto Dukes Potassium [Moles/Vol] 3.5 mmol/L Normal 3.5-5.1 [facility] Comment on above: Performed By: #### I NFLUAB #### [facility] [address] [address] [address] Augusto Dukes Protein [Mass/Vol] 7.2 g/dL Normal 6.4-8.2 [facility] Comment on above: Performed By: #### I NFLUAB #### [facility] [address] [address] [address] Augusto Dukes Sodium [Moles/Vol] 133 mmol/L Critically low 136-145 [facility] Comment on above: Performed By: #### I NFLUAB #### [facility] [address] [address] [address] Augusto Dukes Urea nitrogen [Mass/Vol] 12.0 mg/dL Normal 7.0-18.0 [facility] Comment on above: Performed By: #### I NFLUAB #### [facility] [address] [place] [address] Dr. Augusto Dukes Urea nitrogen/Creatinine [Mass ratio] 20.0 mg/mg Normal [facility] Comment on above: Performed By: #### I NFLUAB #### [facility] [address] [place] [address] Dr. Augusto Dukes TSHon 11-28-2021 TSH 1.863 uIU/mL Normal 0.358-3.740 [facility] Comment on above: Performed By: #### I NFLUAB #### [facility] [address] [place] [address] Dr. Augusto Dukes TSH RANGE SEE BELOW Normal [facility] Comment on above: Result Comment: <0.3 4 UIU/ml HYPERTHYROID 0.34-5.60 UIU/ml EUTHYROID >5.60 UIU/ml HYPOTHYROID Performed By: #### I NFLUAB #### [facility] [address] [place] [address] Dr. Augusto Dukes UA RANDOM W/MICROSCOPICon BACTERIA NONE SEEN Normal NONE SEEN [facility] Comment on above: Performed By: #### U AMIC #### [facility] [address] [place] [address] Dr. Augusto Dukes Bilirubin Ql (U) Negative Normal NEGATIVE [facility] Comment on above: Performed By: #### U AMIC #### [facility] [address] [place] [address] Dr. Augusto Dukes CAST NONE SEEN Normal NONE SEEN [facility] Comment on above: Performed By: #### U AMIC #### [facility] [address] [place] [address] Dr. Augusto Dukes Clarity (U) CLEAR Normal CLEAR [facility] Comment on above: Performed By: #### U AMIC #### [facility] [address] [place] [address] Dr. Augusto Dukes Color (U) LT. YELLOW Normal YELLOW [facility] Comment on above: Performed By: #### U AMIC #### [facility] [address] [address] [address] Augusto Dukes Crystals LM Nom (Urine sed) NONE SEEN Normal NONE SEEN [facility] Comment on above: Performed By: #### U AMIC #### [facility] [address] [address] [address] Augusto Dukes Epithelial cells LM Ql (Urine sed) FEW Abnormal NONE SEEN /RARE [facility] Comment on above: Performed By: #### U AMIC #### [facility] [address] [address] [address] Augusto Dukes Glucose Ql (U) Negative Normal NEGATIVE [facility] Comment on above: Performed By: #### U AMIC #### [facility] [address] [address] [address] Augusto Dukes Hemoglobin Ql (U) Negative Normal NEGATIVE [facility] Comment on above: Performed By: #### U AMIC #### [facility] [address] [address] [address] Augusto Dukes Ketones Ql (U) Negative Normal NEGATIVE [facility] Comment on above: Performed By: #### U AMIC #### [facility] [address] [address] [address] Augusto Dukes LEUKOCYTES Negative Normal NEGATIVE [facility] Comment on above: Performed By: #### U AMIC #### [facility] [address] [address] [address] Augusto Dukes MUCOUS SMALL Abnormal NONE SEEN [facility] Comment on above: Performed By: #### U AMIC #### [facility] [address] [address] [address] Augusto Dukes Nitrite Ql (U) Negative Normal NEGATIVE [facility] Comment on above: Performed By: #### U AMIC #### [facility] [address] [address] [address] Augusto Dukes pH (U) 7.5 [pH] Normal 5-9 [facility] Comment on above: Performed By: #### U AMIC #### [facility] [address] [address] [address] Augusto Dukes RBC NONE SEEN Abnormal 0-2 [facility] Comment on above: Performed By: #### U AMIC #### [facility] [address] [place] [address] Dr. Augusto Dukes SPEC GRAVITY 1.010 Normal 1.005-<=1.025 [facility] Comment on above: Performed By: #### U AMIC #### [facility] [address] [address] [address] Augusto Dukes UA PROTEIN Negative Normal NEGATIVE/ TRACE [facility] Comment on above: Performed By: #### U AMIC #### [facility] [address] [place] [address] Dr. Augusto Dukes Urobilinogen Qn (U) 0.2 {Lamont'U}/dL Normal 0.2 - 1. 0 [facility] Comment on above: Performed By: #### U AMIC #### [facility] [address] [place] [address] Dr. Augusto Dukes WBC NONE SEEN Normal NONE SEEN [facility] Comment on above: Performed By: #### U AMIC #### [facility] [address] [place] [address] Dr. Augusto Dukes VITAMIN D 25 OHon 11-28-2021 VIT D 25-OH 81.8 ng/mL Normal [facility] Comment on above: Performed By: #### A 1C #### [facility] [address] [place] [address] Dr. Augusto Dukes VIT D RANGES SEE BELOW Normal [facility] Comment on above: Result Comment: <20 ng/mL Vit D deficient 20 - <30 ng/mL Vit D insufficient 30 - 100 ng/mL Vit D sufficient >100 ng/mL Potential Toxicity Performed By: #### A 1C #### [facility] [address] [place] [address] Dr. Augusto Dukes ER URINE PROFILEon 2 Bilirubin Ql (U) Negative Normal NEGATIVE [facility] Comment on above: Performed By: #### E RUR #### [facility] [address] [place] [address] Dr. Augusto Dukes Clarity (U) CLEAR Normal CLEAR [facility] Comment on above: Performed By: #### E RUR #### [facility] [address] [place] [address] Dr. Augusto Dukes Color (U) LT. YELLOW Normal YELLOW [facility] Comment on above: Performed By: #### E RUR #### [facility] [address] [place] [address] Dr. Augusto LUONG A micrscopic examination will be performed if indicated. Normal [facility] Comment on above: Performed By: #### E RUR #### [facility] [address] [place] [address] Dr. Augusto Dukes Glucose Ql (U) Negative Normal NEGATIVE [facility] Comment on above: Performed By: #### E RUR #### [facility] [address] [place] [address] Dr. Augusto Dukes Hemoglobin Ql (U) Negative Normal NEGATIVE [facility] Comment on above: Performed By: #### E RUR #### [facility] [address] [place] [address] Dr. Augusto Dukes Ketones Ql (U) Negative Normal NEGATIVE [facility] Comment on above: Performed By: #### E RUR #### [facility] [address] [place] [address] Dr. Augusto Dukes LEUKOCYTES Negative Normal NEGATIVE [facility] Comment on above: Performed By: #### E RUR #### [facility] [address] [place] [address] Dr. Augusto Dukse Nitrite Ql (U) Negative Normal NEGATIVE [facility] Comment on above: Performed By: #### E RUR #### [facility] [address] [place] [address] Dr. Augusto Dukes pH (U) 6.0 [pH] Normal 5-9 [facility] Comment on above: Performed By: #### E RUR #### [facility] [address] [place] [address] Dr. Augusto Dukes SPEC GRAVITY 1.020 Normal 1.005-<=1.025 [facility] Comment on above: Performed By: #### E RUR #### [facility] [address] [address] [address] Augusto Dukes UA PROTEIN Negative Normal NEGATIVE/ TRACE [facility] Comment on above: Performed By: #### E RUR #### [facility] [address] [address] [address] Augusto Dukes UR MICRO IND NOT INDICATED Normal [facility] Comment on above: Performed By: #### E RUR #### [facility] [address] [address] [address] Augusto Dukes Urobilinogen Qn (U) 0.2 {Lamont'U}/dL Normal 0.2 - 1. 0 [facility] Comment on above: Performed By: #### E RUR #### [facility] [address] [place] [address] Dr. Augusto Dukes Encounters Encounter Date Encounter Type Care Provider Facility Start: 06-09-2023 End: 06-09-2023 ambulatory [facility] Start: 06-09-2023 Encounter for gynecological examination (general) (routine) without abnormal findings [facility] Start: 07-01-2022 End: 07-01-2022 [...] Facility:[facility] Payers Date Payer Category Payer Self-pay [id number] 1958 Unknown [id number] 1935 Unknown [id number] 2.16.84 [id number] 1936 Unknown [id number] 2.16.84 [id number] 1936 Unknown [id number] 2.16.84 [id number] 1936 Unknown [id number] 2..84 [id number] 1936 Unknown [id number] 2.16.84 [id number] 1936 Unknown [id number] 2.16.84 [id number] 1936 Unknown [id number] 2.16.84 [id number] 1936 Unknown [id number] 2.16.84 [id number] 1936 Unknown [id number] 2.16.84 [id number] 1936 Unknown [id number] 2.16.84 [id number] 1936 Unknown [id number] 2.16.84 [id number] 1936 Unknown [id number] 2.16.84 [id number] 1936 Unknown [id number] [id number] .[id number] Clinical Note 05-22-2022 Note Date & Type [...] by: MICHELE AGUAYO Date: 2022-05-22 08:38 [facility] Clinical Note 05-22-2022 Note Date & Type [...] authenticated by: MICHELE AGUAYO Date: 2022-05-22 08:38 [facility] Summary Purpose Family History No Family History Records FoundNo Family History Records Found Advance Directives No Advanced Directives Records FoundNo Advanced Directives Records Found Additional Source Comments INFORMATION SOURCE (unrecogn ized section and content) DATE CREATED AUTHOR 07/02/2022 [facility] DATE CREATED AUTHOR AUTHOR'S ORGANIZ ATION [...] ON THE PRIMARY CLINICAL RECORDS. [facility] [facility]. provides no warranty or guarantee of the accuracy or completeness of information in this document.
== END 2024-07-22 14:57 | disposition home or self-care (01) ==
PROVIDERS: PCP Family Medicine; Visit Provider Nurse Practitioner Family
DX: R60.9 Edema, unspecified (principal); I82.593 Chronic embolism and thrombosis of other specified deep vein of lower extremity, bilateral; M71.21 Synovial cyst of popliteal space [Baker], right knee; R60.0 Localized edema
CPT/HCPCS: 93970

== ENCOUNTER 2024-09-14 09:29 | Outpatient (OUT) | payer MEDICARE, SELFPAY ==
--- NOTE | 2024-09-14 09:31 | MM_ITS ---
Patient Name: NIGHAT NOGUEIRA MR#: [id number] : 1935 Exam Date: 09/14/2024 Ordering Doctor: DR Jamal Da Silva . RADIOLOGY REPORT PROCEDURE: MM SCREENING MAMMO BI COMPARISON: MM TOMOSYNTHESIS SCREENING BI, 08/22/2023. MG MAMM SCREEN 3D VERENICE CAD, 07/01/2022. MG MAMM SCREEN 3D VERENICE CAD, 06/18/2021. MG MAMM VERENICE SCRN W CAD DIG, 02/09/2013. INDICATIONS: Screening Calculator Name NCI Breast Cancer Risk Assessment Tool 5 Year Breast Cancer Risk Not Applicable. Lifetime Breast Cancer Risk Not Applicable. Personal Breast Cancer No Personal Ovarian Cancer No Treatments None Family Cancers Aunt-paternal with breast cancer at age 60. LOCATION: [facility] BREAST COMPOSITION: There are scattered areas of fibroglandular density. FINDINGS: Scattered benign-appearing calcifications are present. No significant change has occurred. Right biopsy marking clip redemonstrated. DIAGNOSTIC CATEGORY 2--BENIGN FINDING RECOMMENDATIONS: ROUTINE MAMMOGRAM AND CLINICAL EVALUATION IN 12 MONTHS. PLEASE NOTE: A NORMAL MAMMOGRAM DOES NOT EXCLUDE THE POSSIBILITY OF BREAST CANCER. A CLINICALLY SUSPICIOUS PALPABLE LUMP SHOULD BE BIOPSIED. Dictated by: Frankie Espino DO on 09/14/2024 at 16:55 Approved by: Frankie Espino DO on 09/14/2024 at 16:58
== END 2024-09-14 09:30 | disposition home or self-care (01) ==
LOC: MAMMO 09:29
PROVIDERS: PCP Family Medicine; Visit Provider Family Medicine
DX: Z12.31 Encounter for screening mammogram for malignant neoplasm of breast (principal); Z80.3 Family history of malignant neoplasm of breast
CPT/HCPCS: 77067

== ENCOUNTER 2024-11-29 07:36 | Outpatient (RCR) | payer MEDICARE, SELFPAY ==
[2024-11-29 11:55] LABS: Calcium 9.6 mg/dL (8.5-10.1); Estimated GFR (African America >60 (>=60 mL/min/1.73m^2); Estimated GFR (Non-African Ame >60 (>=60 mL/min/1.73m^2)
[2024-11-29] MEDS: DENOSUMAB 60 MG/ML SYRINGE SQ (12:23)
[2024-11-29 12:32] VITALS: BP 119/79; PULSE 86; TEMP 36.3; O2SAT 94
== END 2024-11-30 07:34 | disposition home or self-care (01) ==
LOC: INF 07:36
PROVIDERS: PCP Family Medicine; Visit Provider Family Medicine
DX: M81.0 Age-related osteoporosis without current pathological fracture (principal)
CPT/HCPCS: 36415; 82310; 82565; 96372; J0897